=== PATIENT | male | born 2000 | race Caucasian/White ===

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

== ENCOUNTER 2022-05-05 17:21 | Emergency (ER) | payer OTHER ==
[~2022-05-05] VITALS: Ht 170.2 cm; Wt 86.2 kg
[~2022-05-05 17:21] MED LIST changes: +RISP3TAB3 PO; -RISPERDAL3 M1 PO
[2022-05-05 17:25] VITALS: BP 166/96
--- NOTE | 2022-05-05 17:25 | NUR ---
BIBA BED 7
[2022-05-05] MEDS ORDERED: HALOPERIDOL IM 5 MG/ML VIAL IM ONE (17:35)
[2022-05-05] MEDS ORDERED: LORazepam 2 MG/ML VIAL IM ONE (17:35)
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
--- NOTE | 2022-05-05 17:55 | NUR ---
pt in view and at rest w/ eyes closed. on monitor worker. bed at lowest position, bed rails upx2
[2022-05-05 18:12] LABS: BASOPHILS % (AUTO) 0.3 % (0.0-2.0); EOSINOPHILS # (AUTO) 0.1 K/uL (0-0.4); EOSINOPHILS % (AUTO) 1.7 % (0.0-4.0); HEMOGLOBIN 13.7 g/dL (12.0-18.0); LYMPHOCYTES # (AUTO) 1.6 K/uL (2.0-11.5); LYMPHOCYTES % (AUTO) 23.9 % (20.5-51.1); MEAN CORPUSCULAR HEMOGLOBIN 28 pg (27-31); MEAN CORPUSCULAR HGB CONC 33 g/dL (33-37); MEAN CORPUSCULAR VOLUME 82.9 fL (80-94); MONOCYTES # (AUTO) 0.5 K/uL (0.8-1.0); MONOCYTES % (AUTO) 6.9 % (1.7-9.3); NEUTROPHILS # (AUTO) 4.5 K/uL (1.8-7.7); NEUTROPHILS % (AUTO) 67.2 % (42.2-75.2); PLATELET COUNT (AUTO) 320 K/uL (140-450); RED BLOOD CELL COUNT(AUTO) 4.94 MIL/uL (4.20-6.10); WHITE BLOOD COUNT (AUTO) 6.8 K/uL (4.8-10.8)
--- NOTE | 2022-05-05 18:29 | NUR ---
XRAY AT BEDSIDE
--- NOTE | 2022-05-05 18:32 | NUR ---
PT TAKEN TO CT VIA [facility]
[2022-05-05 18:43] LABS: APPEARANCE,URINE CLEAR (CLEAR); BILIRUBIN,URINE 1+ (NEGATIVE); BLOOD, URINE NEGATIVE (NEGATIVE); COLOR,URINE YELLOW (YELLOW); LEUKOCYTE ESTERASE ,URINE NEGATIVE (NEGATIVE); NITRITE, URINE NEGATIVE (NEGATIVE); PH,URINE 6.5 (5.0-9.0); UGLUCOSE NEGATIVE (NEGATIVE)
--- NOTE | 2022-05-05 18:44 | NUR ---
PT BROUGHT BACK VIA [facility]
[2022-05-05 19:10] LABS: OPIATE, URINE POSITIVE ng/mL (NEG <=2000)
[2022-05-05 19:11] LABS: CANNABINOID, URINE POSITIVE ng/mL (NEG <=50); PHENCYCLIDINE SCREEN,URINE NEGATIVE ng/mL (NEG <=25)
[2022-05-05 19:12] LABS: BARBITURATE, URINE NEGATIVE ng/ml (NEG <=200); BENZODIAZEPINE, URINE NEGATIVE ng/mL (NEG <=200); COCAINE, URINE NEGATIVE ng/mL (NEG <=300)
--- NOTE | 2022-05-05 19:18 | NUR ---
REPORT GIVEN TO MARIO SEN. TRANSFER OF CARE AT THIS TIME
[2022-05-05 19:21] LABS: ANION GAP 16.7 (8-16); ASPARTATE AMINOTRANSFERASE 59 U/L (15-37); CARBON DIOXIDE 20.4 mmol/L (21-32); CHLORIDE 108 mmol/L (98-107); CREATININE 0.6 mg/dL (0.6-1.3); GFR ARICAN-AMERICAN 215 mL/min (>90); GLUCOSE 88 mg/dL (74-106); POTASSIUM 3.1 mmol/L (3.5-5.1); SODIUM SERUM 142 mmol/L (136-145); TOTAL BILIRUBIN 0.5 mg/dL (0.0-1.0); UREA NITROGEN, BLOOD 9 mg/dL (7-18)
[2022-05-05 19:23] LABS: SALICYLATE < 2.8 mg/dL (2.8-20.0)
[2022-05-05 19:24] LABS: ACETAMINOPHEN < 0.5 ug/ml (10-30)
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
--- NOTE | 2022-05-05 22:00 | NUR ---
RESTING QUIETLY WITH EYES CLOSED, RESPIRATIONS REGULAR AND UNLABORED
--- NOTE | 2022-05-06 01:59 | NUR ---
FOOD PROVIDED FOR PT . MORE ALERT AND VERBAL. PT STATED HE WAS AT "HOME" WITH HIS MOM, SHE STARTED ACTING "DIFFERENT" BECAUSE OF USING DRUGS". PT THEN STATED
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
--- NOTE | 2022-05-06 06:00 | NUR ---
AWAKENED WITH ENCOURAGEMENT. IS FOLLOWING COMMANDS AND IS COOPERATIVE. PT IS PREPARING FOR DISCHARGE AFTER BREAKFAST. BREAKFAST TRAY ORDERED
--- NOTE | 2022-05-06 07:20 | NUR ---
Report recieved from MEDARDO Lofton for transfer of care.
--- NOTE | 2022-05-06 08:04 | NUR ---
Attempted to call Diana, patients mom to update patients status. Wrong number.
--- NOTE | 2022-05-06 08:09 | NUR ---
Attempted to call [phone], phone went straight to voicemail.
--- NOTE | 2022-05-06 08:12 | NUR ---
Attempted to call [phone], phone number is disconnected.
--- NOTE | 2022-05-06 08:14 | NUR ---
Called [phone] to update patients mom discharge status. Phone number went straight to voicemail.
--- NOTE | 2022-05-06 08:25 | NUR ---
Called YARITZA Williamson to do a wellness check on patients mother since we can't get a hold of mom.
--- NOTE | 2022-05-06 08:48 | NUR ---
Per YARITZA Lujan, there is no one staying at that motel room and there is no one under patients name or mothers name [email or web address] at the motel.
--- NOTE | 2022-05-06 09:18 | NUR ---
Patient is sitting up on bed, eating breakfast.
--- NOTE | 2022-05-06 09:20 | NUR ---
Attempted to call [facility] at [phone]. Phone line is unavailable.
--- NOTE | 2022-05-06 09:37 | NUR ---
Called [phone], left a voicemail to call back.
--- NOTE | 2022-05-06 10:11 | NUR ---
Attempted to call [facility] at [phone]. Phone line is unavailable.
--- NOTE | 2022-05-06 11:07 | NUR ---
Called [facility] SPANGL[employer] to do a wellness check on patients mother. Awaiting call back.
--- NOTE | 2022-05-06 11:21 | NUR ---
Per [place] PD, Diana (patients mother) will be at home and is ready for patients discharge home.
--- NOTE | 2022-05-06 12:34 | NUR ---
Patient was changed and made clean and dry.
--- NOTE | 2022-05-06 12:40 | NUR ---
Patient was offered lunch tray. Patient is sitting up eating.
--- NOTE | 2022-05-06 13:11 | NUR ---
Patient is laying in bed, respirations even and unlabored. All needs met by staff.
[2022-05-06 14:13] VITALS: BP 127/78
--- NOTE | 2022-05-06 14:13 | NUR ---
Patient discharged with v/s stable. Written and verbal after care instructions given. Patient verbalized understanding. Ambulance Transport with to home. All questions addressed prior to discharge. Advised to follow up with PMD.
--- NOTE | 2022-05-06 15:40 | NUR ---
The patient's care was reviewed and supervised by GEOFFREY PEREA RN, RN.
== END 2022-05-06 14:13 | disposition home or self-care (01) ==
LOC: MED 17:21
DX: R40.4 Transient alteration of awareness (principal); R45.1 Restlessness and agitation; R45.851 Suicidal ideations; F32.9 Major depressive disorder, single episode, unspecified; Z79.899 Other long term (current) drug therapy
CPT/HCPCS: 36415; 70450; 71045; 80053; 80305; 81003; 84484; 85025; 93005; 96372; 99291; G0480; G0482; J1630; J2060; Q0092

== ENCOUNTER 2022-05-28 03:14 | Emergency (ER) | payer OTHER ==
[~2022-05-28] VITALS: Ht 175.3 cm; Wt 81.6 kg
--- NOTE | 2022-05-28 03:18 | NUR ---
biba to bed #4
[2022-05-28 03:21] VITALS: BP 159/107
--- NOTE | 2022-05-28 03:32 | NUR ---
PT IS BIBA COMPLAINING OF SWELLING ON THE LEFT FOOT WITH SOMEHOW FEEL PAIN IN THE BACK. PT IS ALERT AND ORIENTED X4. HE HAS COLOSTOMY BAG AND HE IS PARAPLEGIC. HE IS ROOM AIR. UNABLE TO AMBULATE.
[2022-05-28] MEDS ORDERED: BACTO TP (06:08)
[2022-05-28] MEDS ORDERED: CEPH-588 PO (06:08)
[2022-05-28] MEDS ORDERED: BACITRACIN OINT 500 UNITS/GM PKT TP ONE (06:10)
--- NOTE | 2022-05-28 07:18 | NUR ---
Assumed care from Hasmukh BATRES. Pt in bed on monitor with all safety measures in place.
--- NOTE | 2022-05-28 10:51 | NUR ---
Attempted to call family for pickup as pt is ready to be discharged
--- NOTE | 2022-05-28 11:57 | NUR ---
HOME: [facility] Address: [facility] [place] [address]
--- NOTE | 2022-05-28 12:00 | NUR ---
Water and lunch given to pt per request.
--- NOTE | 2022-05-28 12:20 | NUR ---
Pt report given to Debora BATRES. Transfer of care at this time.
--- NOTE | 2022-05-28 12:50 | NUR ---
Assumed care of pt at this time
--- NOTE | 2022-05-28 13:19 | NUR ---
Pt requested paper scrubs and wipes. Provided to pt. Offered to assist pt with washing up. Pt states he can on his own and will let staff know if it is needed
--- NOTE | 2022-05-28 13:45 | NUR ---
BILLY AGUILAR, PATIENTS MOM [phone] (PER MOM, BORROWING PHONE, MAY CALL THIS NUMBER TO REACH HER)
--- NOTE | 2022-05-28 14:11 | NUR ---
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
--- NOTE | 2022-05-28 14:41 | NUR ---
[facility] transport arrived to hop picker pt. Verified pt information and correct address. Address verified as correct with pt who remains AOx4, GCS15 and able to make needs known. Pt does not have an IV. Colostomy bag is intact and emptied. Pt was given a second sandwhich as requested. Clothing is appropriate. Mother is waiting for pt at address to let him in
[2022-05-28 14:43] VITALS: BP 137/74
== END 2022-05-28 14:40 | disposition home or self-care (01) ==
LOC: MED 03:14
DX: S90.32XA Contusion of left foot, initial encounter (principal); S90.31XA Contusion of right foot, initial encounter; W18.30XA Fall on same level, unspecified, initial encounter; Y93.89 Activity, other specified; Y92.89 Other specified places as the place of occurrence of the external cause; Y99.8 Other external cause status
CPT/HCPCS: 72100; 73552; 73590; 73610; 73630; 99284; Q0092

== ENCOUNTER 2022-06-04 11:28 | Inpatient (IN) | payer OTHER ==
[~2022-06-04] VITALS: Ht 170.2 cm; Wt 84.4 kg
[~2022-06-04 11:28] MED LIST changes: +BACTO TP; +CEPH-588 PO
[2022-06-04 11:34] VITALS: BP 151/94
--- NOTE | 2022-06-04 11:50 | NUR ---
COVID and PAOLO swabs obtained, walked to lab.
--- NOTE | 2022-06-04 12:08 | NUR ---
Patient arrived without a colostomy bag, new clean colostomy bag applied.
--- NOTE | 2022-06-04 12:12 | NUR ---
Lab at bedside.
[2022-06-04 12:57] LABS: BASOPHILS # (AUTO) 0.1 K/uL (0.00-0.22); BASOPHILS % (AUTO) 0.6 % (0.0-2.0); EOSINOPHILS # (AUTO) 0.1 K/uL (0-0.4); EOSINOPHILS % (AUTO) 1.3 % (0.0-4.0); HEMATOCRIT 49.1 % (36-52); HEMOGLOBIN 16.2 g/dL (12.0-18.0); LYMPHOCYTES # (AUTO) 1.9 K/uL (2.0-11.5); LYMPHOCYTES % (AUTO) 23.2 % (20.5-51.1); MEAN CORPUSCULAR HEMOGLOBIN 28 pg (27-31); MEAN CORPUSCULAR HGB CONC 33 g/dL (33-37); MEAN CORPUSCULAR VOLUME 85.3 fL (80-94); MONOCYTES # (AUTO) 0.7 K/uL (0.8-1.0); MONOCYTES % (AUTO) 7.9 % (1.7-9.3); NEUTROPHILS # (AUTO) 5.6 K/uL (1.8-7.7); PLATELET COUNT (AUTO) 348 K/uL (140-450); RED BLOOD CELL COUNT(AUTO) 5.76 MIL/uL (4.20-6.10); RED CELL DISTRIBUTION WIDTH 17.2 % (11.6-13.7); WHITE BLOOD COUNT (AUTO) 8.3 K/uL (4.8-10.8)
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
[2022-06-04 13:14] LABS: ALBUMIN 4.5 g/dL (3.4-5.0); ANION GAP 19.6 (8-16); ASPARTATE AMINOTRANSFERASE 38 U/L (15-37); CARBON DIOXIDE 24.3 mmol/L (21-32); CHLORIDE 103 mmol/L (98-107); CREATININE 0.9 mg/dL (0.6-1.3); GFR ARICAN-AMERICAN 134 mL/min (>90); GLUCOSE 77 mg/dL (74-106); POTASSIUM 4.9 mmol/L (3.5-5.1); SODIUM SERUM 142 mmol/L (136-145); TOTAL BILIRUBIN 0.8 mg/dL (0.0-1.0); UREA NITROGEN, BLOOD 21 mg/dL (7-18)
[2022-06-04 13:15] LABS: ACETAMINOPHEN < 0.5 ug/ml (10-30); SALICYLATE < 2.8 mg/dL (2.8-20.0)
[2022-06-04 13:36] LABS: CKMB RELATIVE INDEX 3.2 (0.0-2.5); CREATINE KINASE MB 18.4 ng/mL (0-3.6)
[2022-06-04] MEDS ORDERED: BACL10TA4 PO (14:41)
[2022-06-04] MEDS ORDERED: METH-1681 PO (14:41)
[2022-06-04] MEDS ORDERED: GABA100C PO (14:41)
[2022-06-04] MEDS ORDERED: ACET-9525 PO (14:41)
--- NOTE | 2022-06-04 14:41 | NUR ---
med rec complete
[2022-06-04 14:52] LABS: BARBITURATE, URINE NEGATIVE ng/ml (NEG <=200); BENZODIAZEPINE, URINE POSITIVE ng/mL (NEG <=200); CANNABINOID, URINE POSITIVE ng/mL (NEG <=50); COCAINE, URINE NEGATIVE ng/mL (NEG <=300)
[2022-06-04 14:53] LABS: OPIATE, URINE NEGATIVE ng/mL (NEG <=2000); PHENCYCLIDINE SCREEN,URINE NEGATIVE ng/mL (NEG <=25)
--- NOTE | 2022-06-04 15:11 | NUR ---
PT MEDICALLY CLEARED BY DR LANDA
--- NOTE | 2022-06-04 17:35 | NUR ---
Patient was offered snacks and juice. Patient declined.
--- NOTE | 2022-06-04 17:58 | NUR ---
Patient was offered dinner tray. Patient is sitting up eating.
--- NOTE | 2022-06-04 18:25 | NUR ---
Dr. Calzada, psychiatrist, evaluating patient at bedside via Telepsych.
--- NOTE | 2022-06-04 19:16 | NUR ---
Report given to MCKINLEY Schneider for transfer of care.
[2022-06-04] MEDS ORDERED: LORazepam 1 MG TAB PO ONE (19:35)
--- NOTE | 2022-06-04 20:04 | NUR ---
[facility] ORDERS FOR ADMISSION.
--- NOTE | 2022-06-04 23:50 | NUR ---
ORDER FOR TRAMADOL TAKEN VIA PHONE FROM DR CASILLAS
--- NOTE | 2022-06-05 01:53 | NUR ---
PT ALSEEP RESP EVEN AND UNLABORED. HOB ELEVATED.
--- NOTE | 2022-06-05 07:25 | NUR ---
Per previous shift, packet has been faxed [facility]: [facility]
--- NOTE | 2022-06-05 07:30 | NUR ---
REPORT RECEIVED FROM MARIO SEN. ASSUMED CARE AT THIS TIME
--- NOTE | 2022-06-05 07:50 | NUR ---
Patient will be admitted to care of MD MARTINO. Admited to M/S. Will go to room 105B. Belongings list completed. Report to DUYEN SEN.
[2022-06-05 08:00] VITALS: BP 149/91
--- NOTE | 2022-06-05 08:00 | NUR ---
Patient's Plan of Care was discussed and reviewed with DUMP GROUNDS CHECKER: DUYEN
--- NOTE | 2022-06-05 08:00 | NUR ---
ADMITTED FROM ER VIA GURNEY. PT. SLEEPING BUT EASILY AROUSABLE. NON-COOPERATIVE. VERBALIZED NAME, PLACE, AND TIME. NO ADMISSION INFORMATION GATHERED DUE TO PT. NON-COOPERATIVE BEHAVIOR. KEEP COMFORTABLE ON BED. KEEP ENVIRONMENT SAFE AND FREE FROM INJURY. CLOSELY MONITORED 1:1 FOR SUICIDAL PREVENTION.
--- NOTE | 2022-06-05 08:15 | NUR ---
SERVED BREAKFAST TRAY. PT. EATING WELL. STILL NOT GIVING ADMISSION INFORMATION.
[2022-06-05 08:29] LABS: ANION GAP 13.5 (8-16); CARBON DIOXIDE 24.2 mmol/L (21-32); CREATININE 0.6 mg/dL (0.6-1.3); POTASSIUM 3.7 mmol/L (3.5-5.1)
[2022-06-05 08:40] LABS: BASOPHILS # (AUTO) 0.1 K/uL (0.00-0.22); BASOPHILS % (AUTO) 0.9 % (0.0-2.0); EOSINOPHILS # (AUTO) 0.2 K/uL (0-0.4); EOSINOPHILS % (AUTO) 3.6 % (0.0-4.0); HEMATOCRIT 44.8 % (36-52); HEMOGLOBIN 14.5 g/dL (12.0-18.0); LYMPHOCYTES # (AUTO) 1.7 K/uL (2.0-11.5); MEAN CORPUSCULAR HEMOGLOBIN 28 pg (27-31); MEAN CORPUSCULAR HGB CONC 32 g/dL (33-37); MEAN CORPUSCULAR VOLUME 85.8 fL (80-94); MONOCYTES # (AUTO) 0.7 K/uL (0.8-1.0); MONOCYTES % (AUTO) 10.7 % (1.7-9.3); NEUTROPHILS % (AUTO) 59.8 % (42.2-75.2); PLATELET COUNT (AUTO) 302 K/uL (140-450); RED BLOOD CELL COUNT(AUTO) 5.22 MIL/uL (4.20-6.10); RED CELL DISTRIBUTION WIDTH 16.9 % (11.6-13.7); WHITE BLOOD COUNT (AUTO) 6.7 K/uL (4.8-10.8)
[2022-06-05] MEDS: NACL 0.9% 1,000 ML IV SCH ×2 (09:44→18:38)
--- NOTE | 2022-06-05 09:45 | NUR ---
IV ON RIGHT AC GAUGE #20 LEAKED, D/C AND REMOVED. INSERTED NEW IV ACCESS ON LEFT HAND WITH ASSISTANCE FROM SUNNY GAR. TOLERATED WELL. STARTED INFUSING NS AT 100 ML/HR PER MD ORDER.
[2022-06-05] MEDS: ENOXAPARIN 40 MG/0.4 ML SYR SUBQ SCH (09:46)
--- NOTE | 2022-06-05 11:10 | NUR ---
STILL NON-COOPERATIVE. DIDN'T WANT TO GIVE ADMISSION INFORMATION. CONTINUE TO SLEEP. WILL MONITOR.
--- NOTE | 2022-06-05 11:12 | NUR ---
CALLED PT. MOTHER BILLY AGUILAR AT REGARDING PT. ADMISSION INFORMATION.
--- NOTE | 2022-06-05 12:20 | NUR ---
CIELO PLANNING REFERRAL PACKET SENT TO [facility] FOR INPATIENT PSYCH PLACEMENT. REFERRAL PACKET ALSO SENT TO [facility], [facility], [facility], [facility], [facility], AND [facility] Addendum: 06/05/22 at 1357 by Osmar Rausch SS FIELDED CALL FROM [facility] WHO REPORTS THEY ARE UNABLE TO ACCEPT PT THEY ARE UNABLE TO ACCOMMODATE BRAIN INJURY OR PROVIDE LEVEL OF CARE NEEDED DUE TO PARAPLEGIA. Addendum: 06/05/22 at 1401 by Osmar Rausch SS OUTREACHED TO [facility], TO FOLLOW UP ON PLACEMENT STATUS. SPOKE WITH ANA MARÍA KLINE REPORTS REFERRAL PACKET WAS SENT TO [facility], [facility], [facility], [facility], [facility], [facility]A REPORTS NO ACCEPTING FACILITIES OF YET Addendum: 06/06/22 at 1447 by Osmar Rausch OUTREACHED TO [facility] , TO FOLLOW UP ON PLACEMENT STATUS. SPOKE WITH ART WHO REPORTS NO UPDATES ON PLACEMENT. PT IS A COMPLEX PLACEMENT DUE TO PTS COMPLEX MEDICAL NEEDS. Addendum: 06/11/22 at 1435 by Osmar RIVERS SPOKE WITH PT AND PTS MOTHER AND DISCUSSED EXPIRATION OF HOLD. BOTH PT AND PTS MOTHER AWARE, DISCUSSED WITH PT AND MOTHER ACCEPTANCE TO A VOLUNTARY PSYCH FACILITY. PT REPORTS HE WANTS TO RETURN HOME, MOTHER IN AGREEMENT. TRANSPORT REQUEST FORM FAXED TO [facility] FOR 3:30 P/UP. ENDORSED TO PT NURSE.
--- NOTE | 2022-06-05 13:15 | NUR ---
EATING LUNCH AT THIS TIME. REMAINED CALM, AND QUIET. CONTINUE MONITORING.
--- NOTE | 2022-06-05 13:32 | NUR ---
WENT BACK TO SLEEP AFTER EATING LUNCH. KEEP FREE FROM INJURY.
--- NOTE | 2022-06-05 14:20 | NUR ---
REQUESTED FOR ICE CHIPS AND CRANBERRY JUICE. NEEDS MET. BACK TO SLEEP AGAIN.
--- NOTE | 2022-06-05 14:27 | NUR ---
PATIENT HAS BEEN SCREENED AND CATEGORIZED LOW NUTRITION RISK. PATIENT WILL BE SEEN WITHIN 7 DAYS OF ADMISSION. 06/11/22 REVIEWED BY JAYNE ANDREW RD
--- NOTE | 2022-06-05 15:18 | NUR ---
PT. WOKE UP AND REMOVED GOWN. REFUSED TO WEAR IT BACK AGAIN. BACK TO SLEEP WITH GOWN COVER HIS UPPER BODY.
[2022-06-05 16:00] VITALS: BP 147/85
--- NOTE | 2022-06-05 17:15 | NUR ---
PM CARE PROVIDED. CHANGED DIAPER. CALM AND COOPERATIVE AT THIS TIME. ABLE TO CONVINCED TO WEAR GOWN. KEEP COMFORTABLE ON BED. CONTINUE MONITORING.
--- NOTE | 2022-06-05 19:07 | NUR ---
BEDSIDE REPORT GIVEN TO ZACH BAIRD. PT. SLEEPING WELL. IVF INFUSING WELL. IN STABLE CONDITION.
[2022-06-05 20:00] VITALS: BP 128/72
--- NOTE | 2022-06-05 20:00 | NUR ---
RECEIVED REPORT FROM DAY SHIFT NURSE FOR CONTINUITY OF CARE. PATIENT ASLEEP,EASILY AROUSABLE WHEN CALLED BY NAME .ON ROOM AIR,. RESPIRATION EVEN AND UNLABORED.NO S/SX OF DISTRESS. IV ON L HAND G22 RUNNING FLUIDS PER MD ORDER., PATENT AND INTACT.NOTED WOUNDS ON BILATERAL TOES. OPEN TO AIR.NO DRAINAGE NOTED.DENIES PAIN AT THIS MOMENT.ALL PRECAUTIONS IN PLACE .CALL LIGHT WITHIN REACH. WILL CONTINUE TO MONITOR.
[2022-06-05] MEDS: LORazepam 2 MG/ML VIAL IVP PRN (23:33)
--- NOTE | 2022-06-06 | NUR ---
PROVIDED SANDWICH AND JUICE PER PT REQUEST. NO /SX OF DISTRESS. SITTER BY THE DOOR. WILL CONTINUE TO MONITOR.
[2022-06-06] MEDS: NACL 0.9% 1,000 ML IV SCH ×3 (03:29→20:49)
--- NOTE | 2022-06-06 04:24 | NUR ---
PT ASLEEP. NO S/SX OF DISTRESS NOTED. BREATHING EVEN AND UNLABORED. CALL LIGHT WITHIN REACH.WILL CONTINUE TO MONITOR.
[2022-06-06 06:00] VITALS: BP 137/81
--- NOTE | 2022-06-06 07:40 | NUR ---
[facility] FOR CONTINUITY OF CARE. PT IN STABLE CONDITION. 5150 HOLD ACTIVE WITH SITTER AT THE BEDSIDE.
[2022-06-06] MEDS: ENOXAPARIN 40 MG/0.4 ML SYR SUBQ SCH (08:26)
--- NOTE | 2022-06-06 12:16 | NUR ---
RECEIVED IN BED ASSESSMENT COMPLETED AT THIS TIME PLAN OF CARE REVIEWED SITTER AT BEDSIDE FOR 5150 HOLD WILL CONTINUE TO MONITOR AND ASSESS
[2022-06-06] MEDS: traMADol 50 MG TAB PO PRN (12:57)
[2022-06-06] MEDS: LORazepam 2 MG/ML VIAL IVP PRN (13:05)
--- NOTE | 2022-06-06 13:05 | NUR ---
PT NOTED TO BE SLEEPY WITH INTERMITTENTLY AROUSING WITH AGITATION AND PULLING AT LINE ATIVAN GIVEN ORDERED PT ENDO
--- NOTE | 2022-06-06 13:08 | NUR ---
PT ENDORSES PAIN MEDICATED WITH ULTRAM ORDERED WILL CONTINUE TO MONITOR AND ASSESS
[2022-06-06 14:24] VITALS: BP 152/87
--- NOTE | 2022-06-06 14:44 | NUR ---
DC PLANNING ASSESSMENT COMPLETE SEE ASSESSMENT FOR DETAILS PT IS CURRENTLY ON A 5150 HOLD. TENTATIVE DC PLAN IS TO IDENTIFY INPATIENT PSYCH PLACEMENT. Addendum: 06/06/22 at 1445 by Osmar Rausch SS Amended: Links added. Addendum: 06/10/22 at 1057 by Osmar Rausch SS UPDATED REFERRAL PACKET SENT TO [facility], [facility], [facility], [facility], [facility], [facility], Addendum: 06/10/22 at 1123 by Osmar Rausch SS FIELDED CALL FROM [facility] INQUIRING ON PLACEMENT FOR PT. LILLY REPORTS CLINICAL TEAM IS REVIEWING PACKET AND WILL BE IN TOUCH ONCE REVIEWED. Addendum: 06/11/22 at 1606 by Osmar Rausch SS OUTREACHED TO PT MOTHERIBLLY TO NOTIFY HER OF P/UP TIME CHANGE. BILLY, PT MOTHER MADE AWARE PT WILL BE PICKED UP FROM [facility] AT 6PM
[2022-06-06 20:00] VITALS: BP 139/96
--- NOTE | 2022-06-06 20:11 | NUR ---
RECEIVED REPORT FROM GAL BATRES (REGISTRY), PATIENT WAS IN STABLE CONDITION DURING REPORT. PATIENT WAS NOTED IN BED SLEEPING WITH SITTER AT BEDSIDE. ALERT AND ORIENTED X 3. PATIENT AWOKE WHEN NAME WAS CALLED. PATIENT DENIED ANY PAIN AT THIS TIME. PATIENT IS ON ROOM AIR. PATIENT DENIES AND SUICIDAL IDEALIZATIONS AT THIS TIME. NO NOTED RESPIRATORY DISTRESS. CHEST IS RISING AND FALLING WITHOUT INCIDENT. CALL LIGHT IN REACH. [email or web address]
--- NOTE | 2022-06-06 23:55 | NUR ---
PATIENT WAS NOTED TEARFUL. NURSING INQUIRED TO WHY HE WAS CRYING, HE SHOOK HIS HEAD PULLED THE COVERS OVER HIS HEAD AND WENT BACK TO SLEEP. PATIENT CONTINUES ON 1:1 SITTER TO PREVENT SELF HARM. [email or web address]
--- NOTE | 2022-06-07 01:31 | NUR ---
PATIENT IN BED SLEEPING WITHOUT ANY ATTEMPTS OF SUICIDE OR SUICIDAL THOUGHTS. NO S/S OF PAIN/DISCOMFORT. NO S/S OF RESPIRATORY DISTRESS. [email or web address]
[2022-06-07] MEDS: LORazepam 2 MG/ML VIAL IVP PRN ×2 (02:32→09:54)
[2022-06-07 04:00] VITALS: BP 141/95
--- NOTE | 2022-06-07 05:00 | NUR ---
IV FLUIDS WERE CHANGED OUT FOR NEW. PATIENT WAS WASHED D/T CONDOM CATH CAME OFF. [id number] REMAINED CLEAN AND DRY. [email or web address]
--- NOTE | 2022-06-07 07:20 | NUR ---
RECEIVED REPORT FROM NIGHT NURSE ELEAZAR FOR CONTINUITY OF CARE. INITIAL ASSESSMENT. IVF INFUSING WELL. CONDOM CATH IN PLACE. PT PULLED OUT CATHETER LAST NIGHT. NO C/O PAIN OR DISCOMFORT. REMAINS STABLE. CALL LIGHT KEPT WITHIN REACH. WILL CONTINUE TO MONITOR.
--- NOTE | 2022-06-07 07:21 | NUR ---
ENDORSED PATIENT TO SABRINA SEN, PATIENT WAS STABLE DURING SHIFT REPORT. [email or web address]
[2022-06-07 08:00] VITALS: BP 148/94
--- NOTE | 2022-06-07 08:00 | NUR ---
Patient's Plan of Care was discussed and reviewed with BUILDING SERVICES TECHNICIAN:
[2022-06-07] MEDS: ENOXAPARIN 40 MG/0.4 ML SYR SUBQ SCH (08:59)
--- NOTE | 2022-06-07 08:59 | NUR ---
SCHEDULED MEDICATIONS GIVEN. TOLERATING WELL.
[2022-06-07] MEDS: NACL 0.9% 1,000 ML IV SCH ×2 (09:29→19:29)
--- NOTE | 2022-06-07 09:54 | NUR ---
NOTED PT CRYING, AGITATED, NAKED. PRN ATIVAN IVP FOR ANXIETY WAS GIVEN BY MEDARDO HOGAN. WILL CONTINUE TO MONITOR.
--- NOTE | 2022-06-07 10:14 | NUR ---
INFORMED BY RESOURCE NURSE THAT PT TELE PSYCH EVALUATION STILL PENDING. NEEDS TO BE SEEN BY PSYCHIATRIST PRIOR CALLING [facility] SPANGLER. CURRENTLY [address] SPARKS NOTIFIED AWAITING FOR RESPONSE.
--- NOTE | 2022-06-07 11:15 | NUR ---
WOUND CARE NOTE: UPON ARRIVAL TO PTS ROOM, PT IS ON POSITION, PT WITH NO CLOTHES ON. TALK AND EXPLAIN TO PT WITH PT'S PERMISSIONS, GOWN AND BLANKET COVER TO PT'S BODY. PT. ALLOWS WOUND CARE NURSE ONLY CHECK SKIN CONDITION TO ALL EXTREMITIES AND PARTIAL COLOSTOMY BAG IS OBSERVED. PT. REFUSED TO TURN TO OTHER SIDE OF BODY AND REFUSES PRIVATE AREA TO BE CHECKED. ATTEMPTED X3. LEFT HALLUX, 3RD AND 4TH DIGIT TOES.WITH STABLE BROWN/BLACK SLIGHTLY SWELLING, ABHIJEET-WOUNDS SKIN INTACT, INTERSPACES SKIN INTACT, PAIN 0/10. CAPILLARY REFILLED >2 SEC X10 TOES. LLQ ABDOMEN COLOSTOMY BAG IN PLACE NO LEAKAGE OBSERVED. POC DISCUSSED WITH PRIMARY RN REBECCA. RECOMMENDATIONS: -CONTINUE ROUTINE COLOSTOMY CARE -APPLY HYGRAGUARD TO TRUNK OF BODY/SCROTUM AND ALL EXTREMITIES BID AND ANNE-MARIE -PAINT LEFT HALLUX, 3RD AND 4TH DIGIT TOES WITH BETADINE SWAP STICKS BID AND CALIBRATION TESTER Addendum: 06/07/22 at 1122 by Mimi Adams RN (Grace) LEFT HALLUX SCAB 1.8X1.5CM. 3RD TOE 0.8X0.8CM AND 4TH TOE 0.5X0.5CM.
--- NOTE | 2022-06-07 11:28 | NUR ---
RECEIVED CALLED FROM DR. SPARKS PSYCHIATRIST FOR TELE PSYCH EVALUATION. PER , HE WILL EVALUATE HIM LATER TODAY.
[2022-06-07] MEDS: GAUZE TP SCH (13:24)
[2022-06-07] MEDS: HYDRAGUARD CREAM TP SCH (13:26)
--- NOTE | 2022-06-07 14:55 | NUR ---
PT NOTED CRYING, RESTLESS, PULLING OUT COLOSTOMY BAG. DR. KEATING NOTIFIED WITH NEW ORDER. ATIVAN 1 MG IVP Q4H AND SEROQUEL 25 MG BID. D/C ATIVAN 1 MG IVP Q6H. NOTED AND CARRIED OUT.
[2022-06-07] MEDS ORDERED: LORazepam 2 MG/ML VIAL IVP PRN (15:00)
--- NOTE | 2022-06-07 15:11 | NUR ---
PRN ATIVAN 1 MG Q4H WAS GIVEN BY EDISON BATRES. TOLERATING WELL.
--- NOTE | 2022-06-07 16:00 | NUR ---
COLOSTOMY BAG CHANGE. PT ASLEEP AT THIS TIME.
--- NOTE | 2022-06-07 19:40 | NUR ---
MADE FOLLOW UP CALLED WITH DR. SPARKS FOR TELE PSYCH EVALUATION. DR SPARKS CALLED RIGHT AWAY. ONGOING CONSULT.
--- NOTE | 2022-06-07 19:45 | NUR ---
BEDSIDE REPORT GIVEN TO NIGHT NURSE DAIN FOR CONTINUITY OF CARE. ONGOING TELE PSYCH CONSULT WITH DR. SPARKS. REMAINS STABLE.
--- NOTE | 2022-06-07 19:46 | NUR ---
RECEIVED REPORT FROM DAY SHIFT NURSE REBECCA FOR CONTINUITY OF CARE. PT AWAKE IN BED. RESPIRATIONS EVEN AND UNLABORED ON RA. DENIES PAIN. NO DISTRESS NOTED. COLOSTOMY BAG PRESENT, INTACT. ONGOING TELE-PSYCHE CONSULT WITH DR. SPARKS.
[2022-06-07 20:00] VITALS: BP 144/85
--- NOTE | 2022-06-07 20:30 | NUR ---
OSWALDO SPANGLER AT BEDSIDE. SPOKE TO PT. 5150 HOLD EXTENDED.
[2022-06-07] MEDS: QUEtiapine FUMARATE 25 MG TAB PO SCH (21:47)
--- NOTE | 2022-06-07 21:47 | NUR ---
ADMINISTERED DUE MED. PT COMPLIANT, TOLERATED WELL. CHANGED BEDSHEETS AND DIAPER. PT COMFORTABLY LYING IN BED.
--- NOTE | 2022-06-07 21:56 | NUR ---
Patient's Plan of Care was discussed and reviewed with CORN DETASSELER: LORI.
[2022-06-08] MEDS: HYDRAGUARD CREAM TP SCH ×2 (01:00→13:23)
[2022-06-08] MEDS: GAUZE TP SCH ×2 (01:00→13:23)
--- NOTE | 2022-06-08 01:52 | NUR ---
CHANGED COLOSTOMY BAG, DIAPER, BED SHEETS, GOWN AND BLANKET. PT REMAINED CLEAN AND DRY.
--- NOTE | 2022-06-08 03:02 | NUR ---
PT REQUESTED FOR SNACKS. PT ATE THEN GO BACK TO SLEEP. NO SIGNS OF AGITATION NOTED. QUIET AND CALM.
[2022-06-08 04:00] VITALS: BP 134/83
--- NOTE | 2022-06-08 06:39 | NUR ---
DID MORNING CARE. CHANGED COLOSTOMY BAG. PT CALM, COMPLIANT, FOLLOWS INSTRUCTIONS. NO EPISODES OF BEING AGGRESSIVE OR AGITATED ALL THROUGHOUT THE NIGHT. HE WAS CRYING AT TIMES BUT DIDN'T RESPOND WHEN ASKED. 1:1 SITTER MAINTAINED. SAFETY PRECAUTIONS IN PLACE.
[2022-06-08 08:00] VITALS: BP 123/75
[2022-06-08] MEDS: ENOXAPARIN 40 MG/0.4 ML SYR SUBQ SCH (08:13)
[2022-06-08] MEDS: QUEtiapine FUMARATE 25 MG TAB PO SCH ×2 (08:13→20:07)
--- NOTE | 2022-06-08 11:39 | NUR ---
PATIENT PULLED OUT IV STATING THAT HE DOES NOT WANT IV IN ANYMORE, EXPLAINED TO PATIENT IMPORTANCE OF IV ACCESS WHILE IN HOSPITAL FOR TREATMENT, PT REFUSING NEW IV PLACEMENT AND STATES THAT HE DOES NOT WANT AN IV. CATH NOTED TO BE INTACT, NO BLEEDING NOTED.
[2022-06-08] MEDS: NACL 0.9% 1,000 ML IV SCH (15:29)
[2022-06-08] MEDS ORDERED: LORazepam 2 MG/ML VIAL IM/IVP PRN (17:15)
--- NOTE | 2022-06-08 19:15 | NUR ---
PATIENT RESTING IN BED, RESPIRATIONS EVEN AND UL ON RA, SITTER AT BEDSIDE. REPORT GIVEN TO PM NURSE FOR CONTINUITY OF CARE.
--- NOTE | 2022-06-08 19:35 | NUR ---
RECEIVED REPORT FROM DAY SHIFT NURSE EDMUNDO FOR CONTINUITY OF CARE. PT AWAKE SITTING IN BED. 1:[address] LAUGHING, SMILING AND INTERACTING WITH THE SITTER. RESPIRATIONS EVEN AND UNLABORED ON RA. COLOSTOMY BAG IN PLACE, INTACT. SAFETY PRECAUTIONS IN PLACE.
--- NOTE | 2022-06-08 19:36 | NUR ---
RECEIVED PT WITH NO IV LINE IN PLACE. PER AM NURSE AWARE.
[2022-06-08 20:00] VITALS: BP 128/92
--- NOTE | 2022-06-08 20:00 | NUR ---
Patient's Plan of Care was discussed and reviewed with AIRCRAFT DETAIL DRAFTSPERSON: DAIN SAWYER
--- NOTE | 2022-06-08 20:08 | NUR ---
V/S TAKEN, WITHIN NORMAL LIMITS. ADMINISTERED DUE MED. PT TOLERATED WELL. ATTEMPTED TO INSERT A NEW IV LINE BUT PT REFUSED. RISKS AND BENEFITS FOR HAVING IV LINE WHILE IN THE HOSPITAL WERE EXPLAINED BUT STILL REFUSED. PT WITH EXTREME HAPPY MOOD, INTERACTING APPROPRIATELY, DENIES THOUGHTS OF HURTING HIMSELF OR OTHERS, DENIES HEARING VOICES.
--- NOTE | 2022-06-09 00:02 | NUR ---
PT REQUESTED FOR SNACKS. SANDWICH AND JUICE GIVEN. PT STAYED IN BED.
[2022-06-09] MEDS: HYDRAGUARD CREAM TP SCH ×2 (01:00→13:30)
[2022-06-09] MEDS: GAUZE TP SCH ×2 (01:00→13:30)
[2022-06-09] MEDS: NACL 0.9% 1,000 ML IV SCH ×3 (01:29→21:29)
[2022-06-09 04:00] VITALS: BP 122/80
[2022-06-09] MEDS: traMADol 50 MG TAB PO PRN ×2 (05:51→15:07)
--- NOTE | 2022-06-09 05:51 | NUR ---
CHANGED COLOSTOMY BAG. DID MORNING CARE. PT WAS CRYING COMPLAINING FOR CRAMPS AND PAIN ON HIS BACK, PRN MED ADMINISTERED. PT REMAINED IN BED COMFORTABLY RESTING.
--- NOTE | 2022-06-09 07:10 | NUR ---
GAVE BEDSIDE REPORT TO MCKINLEY BENITES FOR CONTINUITY OF CARE. PT REPORTED DECREASED PAIN 07/29. 1:1 SITTER MAINTAINED THROUGHOUT SHIFT. NO DISTRESS NOTED. PT WITH EPISODES OF CRYING. PT WAS CALM, NO UNUSUAL EVENTS NOTED. PT IN STABLE CONDITION.
--- NOTE | 2022-06-09 07:11 | NUR ---
RECEIVED PT FROM ENGINE HEAD REPAIRER NURSE FOR CONTINUITY OF CARE. PT IN BED SLEEP. VISIBLE RISE/FALL OF CHEST, RESPIRATIONS EVEN AND UNLABORED ON RA. NO IV ACCESS, SKIN WARM AND DRY TO TOUCH. NO DISTRESS NOTED. SITTER IN ROOM.
--- NOTE | 2022-06-09 08:00 | NUR ---
Patient's Plan of Care was discussed and reviewed with EXTENSION WORK INSTRUCTOR:
[2022-06-09] MEDS: ENOXAPARIN 40 MG/0.4 ML SYR SUBQ SCH (09:00)
[2022-06-09] MEDS: QUEtiapine FUMARATE 25 MG TAB PO SCH ×2 (09:12→21:46)
--- NOTE | 2022-06-09 11:38 | NUR ---
PT IN BED CRYING, COMPLAINS OF PAIN. NURSE ASKED PT LOCATION OF PAIN PT SCREAMING " LEAVE ME ALONE, YOU GUYS DONT CARE ABOUT ME" NURSE BROUGHT MEDICATION TO PT, PT REFUSED STATES " I DONT WANT TO TAKE ANYTHING, YOU GUYS NEVER BRING ME ANYTHING UNTIL ITS TOO LATE" INFORMED PT THAT HIS MEDICATION IS Q6 AND IS NOT PAST DUE, INFORMED DR KEATING, NO NEW ORDERS.
--- NOTE | 2022-06-09 13:00 | NUR ---
PT IN BED WITH EYES CLOSED AND WHIMPERING. NURSE BROUGHT CONDOM CATH PER PT REQUEST, PT STATES HE NO LONGER WANTS IT, OFFERED PAIN MEDICATION PT REFUSED. NURSE PERFORMED WOUND CARE.
[2022-06-09 16:00] VITALS: BP 138/92
--- NOTE | 2022-06-09 17:13 | NUR ---
PROVIDED COLOSTOMY CARE AND CHANGE. PT SLEEPING.
--- NOTE | 2022-06-09 18:00 | NUR ---
PT C/O TINGLING FRAGMENT SENSATION ON LEGS. ASSISTED PT TO PERFORM PASSIVE RANGE OF MOTION ON LEGS, THEN PROPED THEM UP ON PILLOWS.
--- NOTE | 2022-06-09 19:23 | NUR ---
ENDORSED PT TO SUBSTANCE ABUSE NURSE NURSE FOR CONTINUITY OF CARE. PT IN STABLE CONDITION.
--- NOTE | 2022-06-09 19:24 | NUR ---
RECEIVED REPORT FROM DAY SHIFT NURSE DELMIS FOR CONTINUITY OF CARE. PT SLEEPING, EASILY AROUSABLE BY VERBAL STIMULI. RESPIRATIONS EVEN AND UNLABORED ON RA. COLOSTOMY BAG IN PLACE, INTACT. NO IV SITE, MD AWARE. 1:[address] POC DISCUSSED WITH MEDARDO COLEY.
[2022-06-09 20:00] VITALS: BP 119/65
--- NOTE | 2022-06-09 20:00 | NUR ---
Patient's Plan of Care was discussed and reviewed with FLAG FOOTBALL COACH: DAIN SAWYER
--- NOTE | 2022-06-09 21:46 | NUR ---
ADMINISTERED DUE MEDS. PT WAS COMPLAINT AND TOOK HIS MED. PT STILL REFUSING TO HAVE IV LINE INSERTED. RISKS AND BENEFITS EXPLAINED BUT STILL REFUSED. POC DISCUSSED WITH PT. PT VERBALIZED UNDERSTANDING. PT DENIES THOUGHTS OF HURTING HIMSELF OR OTHERS, DENIES VISUAL OR AUDITORY HALLUCINATIONS. PT WAS CALM WITH NO SIGNS OF AGITATION. SAFETY AND 1:[address]
[2022-06-10] MEDS: HYDRAGUARD CREAM TP SCH ×2 (01:04→13:44)
[2022-06-10] MEDS: GAUZE TP SCH ×2 (01:04→13:45)
--- NOTE | 2022-06-10 05:39 | NUR ---
DID MORNING CARE. CHANGED COLOSTOMY BAG. PT COMPLIANT AND HELPED WITH THE COLOSTOMY CARE. NO AGITATION. NO UNUSUAL BEHAVIOR. NO DISTRESS NOTED.
--- NOTE | 2022-06-10 07:07 | NUR ---
GAVE BEDSIDE REPORT TO MCKINLEY BENITES FOR CONTINUITY OF CARE. ALL NEEDS MET THROUGHOUT SHIFT. PT IN STABLE CONDITION.
[2022-06-10] MEDS: NACL 0.9% 1,000 ML IV SCH ×2 (07:29→17:29)
[2022-06-10 08:00] VITALS: BP 137/90
[2022-06-10] MEDS: traMADol 50 MG TAB PO PRN ×3 (08:35→22:21)
[2022-06-10] MEDS: QUEtiapine FUMARATE 25 MG TAB PO SCH ×2 (08:35→22:22)
[2022-06-10] MEDS: ENOXAPARIN 40 MG/0.4 ML SYR SUBQ SCH (08:38)
--- NOTE | 2022-06-10 08:40 | NUR ---
ADMINISTERED SCHEDULED MEDS. PT TOLERATED WELL.
--- NOTE | 2022-06-10 13:29 | NUR ---
DISCHARGE PLANNING: RECEIVED A CALL FROM [facility] [phone], STATING THAT THEY RECEIVED THER REFERRAL. HOWEVER, THEY ARE ONLY ACCEPTING VOLUNTARY PATIENTS AND PATIENT IS ON HOLD. IF PATIENT'S HOLD EXPIRES AND PATIENT IS WILLING TO BE ADMITTED IN THERE FACILITY THEY ARE ABLE TO ACCEPT. Addendum: 06/11/22 at 1435 by Sara Webb RN DC PLANNING: GRZEGORZ SISSY SPOKE WITH PT'S MOTHER BILLY AND AGREED TO TAKE HIM HOME. CM CONTACT [facility] AND PT WAS WITH [facility]. CM CALLED [facility] [phone] SPOKE WITH THE ADMIN AND STATED THEY DISCHARGE HIM MAY 17 AND NOT WILLING TO TAKE HIM BACK BECAUSE NO NURSE WORKING AROUND THE AREA. CM FAXED TO [facility] , [facility]. CM TO FOLLOW Addendum: 06/11/22 at 1635 by Sara Webb RN DC PLANNING: [facility] IS ACCEPTING PATIENT. [facility] PROVIDE THE AUTH # [id number] AND [facility] PROVIDE THE COLOSTOMY CARE AND INCONTINENCE CARE SUPPLIES. CM TO FOLLOW
[2022-06-10 16:00] VITALS: BP 137/89
--- NOTE | 2022-06-10 19:39 | NUR ---
ENDORSED PT CARE TO OFFSET LITHOGRAPHIC PRESS OPERATOR NURSE ELDA. INFORMED HIM OF 5150 HOLD EXPIRING TONIGHT May AT 2109. CALLED [facility] , WAS INFORMED THEY WOULD SEND OFFICER SOON THEY HAD ONE AVAILABLE.. INFORMED ELDA. ALL NEEDS MET THROUGHOUT SHIFT. PT IN STABLE CONDITION.
--- NOTE | 2022-06-10 21:10 | NUR ---
CALLED [facility] SPANGLER [ ] FOR POSSIBLE RENEWAL OF 5150 DTS HOLD EXPIRING AT 2109 TONIGHT. CALL DESK INFORMED RN THAT OFFICER WILL BE OUT SHORTLY.
--- NOTE | 2022-06-10 23:49 | NUR ---
[facility]WAL[facility] PD OFFICER ARRIVED AND ASSESSED PT [id number] AND FOUND NO CAUSE FOR EXTENDING 5150 HOLD. PT COMPLIANT W MEDICATIONS AND FOLLOWS DIRECTIONS. NSG COOK PIE ASKED FOR [id number] (MONITOR) W MD AND PT. SYSTEMS SPECIALIST WAS CALLED AND NOTIFIED - ROUTINE STATUS.
--- NOTE | 2022-06-11 00:16 | NUR ---
TELE-PSYCH ([phone]) WAS CALLED FOR CONSULTATION ON THIS PATIENT. TELE-PSYCH WILL CALL BACK. ALYSSIA VILLELA TO ASSESS PT FOR RENEWAL / DECLINE OF 5150 HOLD.
--- NOTE | 2022-06-11 01:00 | NUR ---
DR Hermelinda VILLELA CONCLUDED AT END OF INTERVIEW THAT PT DOES NOT MEET CRITERIA FOR 5150 HOLD.
[2022-06-11] MEDS: NACL 0.9% 1,000 ML IV SCH ×2 (01:39→13:29)
--- NOTE | 2022-06-11 02:57 | NUR ---
Pt currently in tears, crying. Pt crying that he is no longer able to walk. Pt did contract for safety and agreed to notify nurse if he has any thoughts about hurting himself.
[2022-06-11] MEDS: traMADol 50 MG TAB PO PRN ×3 (04:25→16:38)
[2022-06-11] MEDS: GAUZE TP SCH ×2 (04:27→13:27)
[2022-06-11] MEDS: HYDRAGUARD CREAM TP SCH ×2 (04:28→13:26)
--- NOTE | 2022-06-11 07:25 | NUR ---
RECEIVED BEDSIDE REPORT FROM TELEGRAPHIC TYPEWRITER INSTALLER MEDARDO SCHROEDER FOR CONTINUITY OF PATIENT CARE. PATIENT IN BED AOX4, RESPIRATIONS EVEN AND UNLABORED, PT SITTING NAKED ON MATTRESS NO SHEETS ON MATTRESS, SKIN COOL TO TOUCH. COLOSTOMY BAG FULL OF STOOL AND UNCLIPPED LYING ON SIDE OF BED, STOMA OPEN TO AIR NOTED WITH MODERATE AMOUNT OF STOOL SURROUNDING AND DIRECTLY ON STOMA. PT COMPLAINS HE WAS NOT CLEANED ALL NIGHT. NIGHT RN STATES HE WAS UNABLE TO ACCOMPLISH PT CARE SUCH COLOSTOMY CARE. MEDARDO SCHROEDER STATES PT IS NO LONGER 51/50 [facility] SPANGLER FOUND NO CAUSE TO RENEW, PER ELDA DID NOT GET A CHANCE TO NOTIFY DR OF STATUS CHANGE.
--- NOTE | 2022-06-11 07:45 | NUR ---
PROVIDED COLOSTOMY CARE, AND INFORMED DR STOLL OF PT NO LONGER 5150 HOLD.
[2022-06-11 08:00] VITALS: BP 134/90
--- NOTE | 2022-06-11 08:00 | NUR ---
Patient's Plan of Care was discussed and reviewed with MCKINLEY: CLYDE
[2022-06-11] MEDS: QUEtiapine FUMARATE 25 MG TAB PO SCH (08:21)
[2022-06-11 10:41] LABS: BASOPHILS % (AUTO) 0.4 % (0.0-2.0); EOSINOPHILS # (AUTO) 0.1 K/uL (0-0.4); EOSINOPHILS % (AUTO) 0.9 % (0.0-4.0); HEMATOCRIT 41.5 % (36-52); HEMOGLOBIN 13.7 g/dL (12.0-18.0); LYMPHOCYTES # (AUTO) 1.7 K/uL (2.0-11.5); LYMPHOCYTES % (AUTO) 16.9 % (20.5-51.1); MEAN CORPUSCULAR HEMOGLOBIN 28 pg (27-31); MEAN CORPUSCULAR HGB CONC 33 g/dL (33-37); MEAN CORPUSCULAR VOLUME 84.8 fL (80-94); MONOCYTES # (AUTO) 0.6 K/uL (0.8-1.0); MONOCYTES % (AUTO) 6.1 % (1.7-9.3); NEUTROPHILS # (AUTO) 7.8 K/uL (1.8-7.7); NEUTROPHILS % (AUTO) 75.7 % (42.2-75.2); PLATELET COUNT (AUTO) 299 K/uL (140-450); RED BLOOD CELL COUNT(AUTO) 4.89 MIL/uL (4.20-6.10); RED CELL DISTRIBUTION WIDTH 16.4 % (11.6-13.7); WHITE BLOOD COUNT (AUTO) 10.3 K/uL (4.8-10.8)
[2022-06-11 10:54] LABS: ANION GAP 13.3 (8-16); CARBON DIOXIDE 27.4 mmol/L (21-32); CREATININE 0.6 mg/dL (0.6-1.3); POTASSIUM 3.7 mmol/L (3.5-5.1)
[2022-06-11] MEDS: ENOXAPARIN 40 MG/0.4 ML SYR SUBQ SCH (11:42)
--- NOTE | 2022-06-11 15:02 | NUR ---
PREPARING PT FOR DISCHARGE, PROVIDED COLOSTOMY CARE. PT STATES HE WANTS HIS CLOTHES BACK, NOTIFIED SECURITY. PER SECURITY LOOKING FOR HIS CLOTHES. PT REFUSE PICTURES OF WOUNDS ON ABHIJEET AREA.
--- NOTE | 2022-06-11 15:28 | NUR ---
RECEIVED CALL FROM [facility] TRANSP[facility]. PICKUP TIME HAS CHANGED FROM 3:30PM TO 6:00PM
--- NOTE | 2022-06-11 15:31 | NUR ---
06/11/22 RD INITIAL ASSESSMENT COMPLETED PLEASE REFER TO NUTRITION ASSESSMENT UNDER CARE ACTIVITY FOR ESTIMATED NUTRITIONAL NEEDS. 1. CONTINUE REGULAR DIET TOLERATED 2. MONITOR GI, PO INTAKE, AND LAB VALUES. 3. RD TO FOLLOW-UP 3-5 DAYS, MODERATE RISK REVIEWED BY JAYNE ANDREW RD
[2022-06-11 16:00] VITALS: BP 153/96
--- NOTE | 2022-06-11 19:15 | NUR ---
ENDORSED PT TO SPINE SPECIALIST NURSE FOR CONTINUITY OF CARE. PT IN STABLE CONDITION.
--- NOTE | 2022-06-11 19:16 | NUR ---
RECEIVED ENDORSEMENT FROM DELMIS SEN, PATIENT WAS DRESSED IN CIVILIAN CLOTHING READY FOR DISCHARGE. PATIENT ALERT AND ORIENTED. IV LINE DISCONTINUED AND [id number] ID WAS REMOVED BY PREVIOUS SHIFT. PATIENT DENIED ANY PAIN/DISCOMFORT. PATIENT DENIED ANY RESPIRATORY DISTRESS. NURSING NOTED CHEST RISING AND FALLING WITHOUT INCIDENT. PATIENT WILL BE DISCHARGED TO HOME ([place]) TO THE CARE OF HIS MOTHER. SIDE RAILS UP X 3 AND PADDED. NO NOTED SEIZURE ACTIVITY DURING AM SHIFT AND NONE AT THIS TIME. PATIENT HAS ALL OF HIS DISCHARGE PAPERWORK AT BEDSIDE. AWAITING [facility]. CALL LIGHT WITHIN REACH. [email or web address]
--- NOTE | 2022-06-11 19:30 | NUR ---
[facility] ARRIVED X 2 TECHNICIANS. PATIENT WAS LEAVING ON [facility]. PATIENT HAS ALL OF THE DISCHARGE PAPERWORK TO RETURN TO THE CARE OF HIS MOTHER. PATIENT HAS APPROPRIATE FACIAL EXPRESS OF HAPPINESS TO LEAVE THE FACILITY. PATIENT WAS MADE AWARE TO KEEP TOES ON LEFT FOOT CLEAN AND DRY. FREE FROM INFECTION. PATIENT WAS IN CIVILIAN CLOTHING FROM WHEN HE CAME TO THE HOSPITAL. NO IV ACCESS AND ID BAND WAS REMOVED BY PREVIOUS SHIFT. [email or web address]
== END 2022-06-11 19:30 | disposition home or self-care (01) | DRG 351 ==
LOC: MED 11:28 → MTU 19:53 → OBSVTOIN 19:53 → MTU 06-05 07:00
PROVIDERS: ADMIT Student in an Organized Health Care Education/Training Program; ATTEND Student in an Organized Health Care Education/Training Program
DX: M62.82 Rhabdomyolysis (principal); G82.20 Paraplegia, unspecified; R45.851 Suicidal ideations; F41.9 Anxiety disorder, unspecified; I10 Essential (primary) hypertension; R74.01 Elevation of levels of liver transaminase levels; Z20.822 Contact with and (suspected) exposure to COVID-19; F32.A Depression, unspecified; F43.10 Post-traumatic stress disorder, unspecified; F15.10 Other stimulant abuse, uncomplicated; F12.10 Cannabis abuse, uncomplicated; Z93.3 Colostomy status; T14.8XXS Other injury of unspecified body region, sequela; W34.00XS Accidental discharge from unspecified firearms or gun, sequela
CPT/HCPCS: 36415; 80048; 80053; 80305; 82550; 82553; 83735; 85025; 87081; 87635-QW; 99285; C9803-CS; G0480; G0482; J1650; J2060

== ENCOUNTER 2022-07-21 17:30 | Inpatient (IN) | payer OTHER ==
[~2022-07-21] VITALS: Ht 170.2 cm; Wt 63.0 kg
[~2022-07-21 17:30] MED LIST changes: +ACET-9525 PO; +BACL10TA4 PO; -BACTO TP; -CEPH-588 PO; +GABA100C PO; +METH-1681 PO; -RISP3TAB3 PO
[2022-07-21 17:31] VITALS: BP 148/100
--- NOTE | 2022-07-21 17:38 | NUR ---
LIVES WITH MOM IN [place]
--- NOTE | 2022-07-21 17:40 | NUR ---
[facility] TO ER BED 6
[2022-07-21 18:18] LABS: BASOPHILS # (AUTO) 0.1 K/uL (0.00-0.22); BASOPHILS % (AUTO) 0.7 % (0.0-2.0); EOSINOPHILS # (AUTO) 0.1 K/uL (0-0.4); EOSINOPHILS % (AUTO) 0.5 % (0.0-4.0); HEMATOCRIT 43.9 % (36-52); HEMOGLOBIN 14.5 g/dL (12.0-18.0); LYMPHOCYTES # (AUTO) 2.3 K/uL (2.0-11.5); LYMPHOCYTES % (AUTO) 20.1 % (20.5-51.1); MEAN CORPUSCULAR HEMOGLOBIN 28 pg (27-31); MEAN CORPUSCULAR HGB CONC 33 g/dL (33-37); MEAN CORPUSCULAR VOLUME 85.5 fL (80-94); MONOCYTES % (AUTO) 8.6 % (1.7-9.3); NEUTROPHILS % (AUTO) 70.1 % (42.2-75.2); PLATELET COUNT (AUTO) 528 K/uL (140-450); RED BLOOD CELL COUNT(AUTO) 5.14 MIL/uL (4.20-6.10); RED CELL DISTRIBUTION WIDTH 14.1 % (11.6-13.7); WHITE BLOOD COUNT (AUTO) 11.5 K/uL (4.8-10.8)
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
[2022-07-21 18:33] LABS: ALBUMIN 3.2 g/dL (3.4-5.0); ANION GAP 17.6 (8-16); ASPARTATE AMINOTRANSFERASE 31 U/L (15-37); CARBON DIOXIDE 22.6 mmol/L (21-32); CHLORIDE 105 mmol/L (98-107); CREATININE 0.9 mg/dL (0.6-1.3); GFR ARICAN-AMERICAN 134 mL/min (>90); GLUCOSE 98 mg/dL (74-106); POTASSIUM 4.2 mmol/L (3.5-5.1); SODIUM SERUM 141 mmol/L (136-145); TOTAL BILIRUBIN 0.6 mg/dL (0.0-1.0); UREA NITROGEN, BLOOD 19 mg/dL (7-18)
[2022-07-21 18:35] LABS: SALICYLATE < 2.8 mg/dL (2.8-20.0)
--- NOTE | 2022-07-21 19:20 | NUR ---
Report given to MCKINLEY Smith for transfer of care.
[2022-07-21] MEDS ORDERED: NACL 0.9% 2,000 ML IV ONE (19:30)
[2022-07-21] MEDS ORDERED: VANCOMYCIN 1,000 MG in DEXTROSE 5% 250 ML IV ONE (19:30)
--- NOTE | 2022-07-21 20:00 | NUR ---
ATTEMPTED TO IV INSERTION X2, PT CONTINUED TO MOVE AROUND AND ATTEMPTED TO PULL ON STAFF. IV INSERTION UNSUCCESSFUL, CHARGE NURSE AND ER DOCTOR AWARE
--- NOTE | 2022-07-21 20:50 | NUR ---
PT CONTINUES TO APPEAR CONFUSED AND UNABLE TO ANSWER DIRECT QUESTIONS. PT HAS VISIBLE WOUNDS, STAGE 2 ULCERS ON SACRUM, SORES ON R TOES, R INER CALF LACERATION AND L THIGH LACERATION. PT HAS A OSTOMY. PMH- DEPRESSION NKA
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
--- NOTE | 2022-07-21 21:15 | NUR ---
SOFT RESTRINTS APPLIED PER ER DOCTORS ORDER.
[2022-07-21] MEDS ORDERED: VANCOMYCIN 1,000 MG VIAL ONE (22:02)
--- NOTE | 2022-07-21 22:15 | NUR ---
PT CONTINUED TO PULL ON OSTOMY BAG. REPLACED SUCCESSFULLY X2. PT CONTINUES TO MUMBLE RANDOM VERBAL THOUGHTS.
[2022-07-21] MEDS ORDERED: diphenhydrAMINE 50 MG/ML VIAL IVP ONE (22:40)
[2022-07-21] MEDS ORDERED: LORazepam 2 MG/ML VIAL IVP ONE (22:40)
[2022-07-21] MEDS ORDERED: HALOPERIDOL IM 5 MG/ML VIAL IVP ONE (22:40)
--- NOTE | 2022-07-21 23:23 | NUR ---
PT TOLERATING MEDICATION WELL, RESPIRATIONS EVEN AND UNLABORED.
[2022-07-21] MEDS ORDERED: VANCOMYCIN PER PHARMACY MC PRN (23:40)
--- NOTE | 2022-07-22 01:15 | NUR ---
pt resting in room, respirations even and unlabored. pt awaiting admission
[2022-07-22 03:52] LABS: BARBITURATE, URINE NEGATIVE ng/ml (NEG <=200); BENZODIAZEPINE, URINE POSITIVE ng/mL (NEG <=200); CANNABINOID, URINE NEGATIVE ng/mL (NEG <=50); COCAINE, URINE NEGATIVE ng/mL (NEG <=300); OPIATE, URINE NEGATIVE ng/mL (NEG <=2000); PHENCYCLIDINE SCREEN,URINE NEGATIVE ng/mL (NEG <=25)
--- NOTE | 2022-07-22 04:03 | NUR ---
pt awaiting admission resting in room with respirations even and unlabored
--- NOTE | 2022-07-22 07:30 | NUR ---
Pt report given to wade nelson. Transfer of care at this time.
--- NOTE | 2022-07-22 07:49 | NUR ---
Patient will be admitted to care of dr Shaikh Quiñonez. Admited to Med/Surg. Will go to room. Belongings list completed. Report to .
--- NOTE | 2022-07-22 08:25 | NUR ---
PATIENT ARRIVED TO [facility] VIA GURNEY. PT DROWSY NOT AROUSABLE. RESPIRATIONS EVEN AND UNLABORED ON RA. IV ON R A/C 22G. SL. ON RESTRAINTS. OSTOMY BAG ON LUQ. ALL SAFETY PRECAUTIONS IN PLACE. PT PLACED ON 1:1 WITH SITTER.
[2022-07-22] MEDS: VANCOMYCIN 1.25GM PREMIX 250 ML IV SCH ×2 (09:00→20:09)
--- NOTE | 2022-07-22 10:07 | NUR ---
PATIENT HAS BEEN SCREENED AND CATEGORIZED MODERATE NUTRITION RISK. PATIENT WILL BE SEEN WITHIN 3-5 DAYS OF ADMISSION. REVIEWED BY JAYNE ANDREW RD Addendum: 07/22/22 at [address] [facility] REFERRAL RECEIVED ON 07/22/22. REFERRAL DOES NOT MEET HIGH RISK CRITERIA PER HOSPITAL POLICY. PT WILL BE SEEN AND ASSESSED ACCORDING TO THE NUTRITION CARE POLICY.
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
[2022-07-22 11:42] VITALS: BP 148/99
--- NOTE | 2022-07-22 13:06 | NUR ---
FNS CONSULT HAS BEEN RECEIVED FOR WOUNDS. PATIENT HAS BEEN RE-SCREENED HIGH RISK AND WILL BE SEEN WITHIN 1-2 DAYS OF RECEIVING THE FNS CONSULT. 07/23/22-07/24/22
--- NOTE | 2022-07-22 14:07 | NUR ---
ATTEMPT TO DO SKIN ASSESSMENT, PT. REFUSED TO TURN, RISK AND BENEFIT EXPLAINED, PT. REMAINS SILENT AND NOT MOVING.
[2022-07-22 16:00] VITALS: BP 130/81
--- NOTE | 2022-07-22 19:30 | NUR ---
ENDORSED PT TO ELASTIC ATTACHER ZIGZAG NURSE FOR CONTINUITY OF CARE. PT STABLE.
--- NOTE | 2022-07-22 19:30 | NUR ---
RECEIVED REPORT FROM DAY SHIFT NURSE DELMIS FOR CONTINUITY OF CARE. PATIENT IS STABLE. PATIENT IS AWARE OF HIS NAME AND , BUT IS NOT REALLY ANSWERING ANY QUESTIONS. PATIENT IS ON ROOM AIR, BREATHING IS NORMAL WITH SYMMETRICAL RISE AND FALL OF CHEST. IV IS A 22G RAC, NO FLUIDS RUNNING AT THIS TIME (SALINE LOCKED). PATIENT IS SLEEPING IN BED, LYING SUPINE. BED IS IN LOWEST POSITION, WHEELS LOCKED, CALL LIGHT IN PLACE. WILL CONTINUE TO OBSERVE PATIENT.
[2022-07-22 20:00] VITALS: BP 146/81
--- NOTE | 2022-07-22 22:00 | NUR ---
WOKE PATIENT UP TO ADMINISTER 2100 VANCOMYCIN IVPB. PATIENT IS GROGGY, BUT WAS COOPERATIVE WITH ATTACHING IV LINE TO ARM. STARTED IVPB ON PATIENT, MEDICATION STARTED SUCCESSFULLY WITHOUT ANY ISSUES WITH IV. RECEIVED PHONE CALL FROM [facility] AND SPOKE WITH ERIC. ERIC WAS INQUIRING IF PATIENT WAS MEDICALLY CLEARED FOR DISCHARGE FOR POSSIBLE TRANSFER TO [facility]. I INFORMED ERIC THAT I WAS NOT AWARE OF THE PATIENT BEING DISCHARGED TO [facility] AND DID NOT SEE ANY D/C ORDER ON FILE. ERIC SAID OKAY AND ASKED ME ABOUT PATIENT'S HISTORY. I INFORMED ERIC THAT PATIENT HAD A HISTORY OF DEPRESSION, PTSD, AND PARAPLEGIA. ERIC ASKED ABOUT THE PARAPLEGIA STATING THAT THE PATIENT WAS AT [facility] IN 2017 AND THERE WAS NO PARAPLEGIA. SHE ASKED IF PATIENT USES A WHEELCHAIR. I WENT INTO ROOM AND ASKED PATIENT, PATIENT WAS NOT ANSWERING THE QUESTION AT FIRST, BUT FINALLY STATED TO ME, "NO, I JUST LAY IN BED". I INFORMED ERIC THAT THE PATIENT STATED THAT HE DOESN'T USE A WHEELCHAIR AT HOME, JUST LAYS IN BED. SHE SAID OKAY AND ASKED FOR US TO GIVE HER A CALL WHEN PATIENT MEDICALLY CLEAR FOR D/C AND ORDERS ARE ON FILE. [facility] [phone] (ERIC).
[2022-07-23 04:00] VITALS: BP 135/88
--- NOTE | 2022-07-23 05:00 | NUR ---
BANDAGES WERE PLACED ON WOUND LOCATED ON: COCCYX, RIGHT HIP, AND LEFT HIP. BANDAGE ON RIGHT RAM IS DRY AND INTACT. PATIENT WAS CHANGED; PATIENT HAD VOIDED, OSTOMY BAG WAS CLEAN THROUGHOUT NIGHT (NO BM). PATIENT HAS SLEPT THROUGHOUT THE NIGHT. WILL CONTINUE TO OBSERVE PATIENT.
--- NOTE | 2022-07-23 07:30 | NUR ---
RECEIVED REPORT FROM HOGSHEAD SALVAGE NURSE FOR CONTINUITY OF CARE, POC DISCUSSED. PT IS RESTING IN BED ON ROOM AIR WITH CHEST RISING AND FALLING EVEN AND UNLABORED. ACUTE S/S OF DISTRESS. SITTER 1:1. ALL SAFETY MEASURES IN PLACE, CALL LIGHT WITHIN REACH.
--- NOTE | 2022-07-23 07:36 | NUR ---
ENDORSED TO DAY SHIFT NURSE BO FOR CONTINUITY OF CARE. PATIENT IS STABLE.
[2022-07-23 08:43] LABS: ANION GAP 11.3 (8-16); CARBON DIOXIDE 26.5 mmol/L (21-32); CREATININE 0.6 mg/dL (0.6-1.3); POTASSIUM 3.8 mmol/L (3.5-5.1)
--- NOTE | 2022-07-23 08:47 | NUR ---
SPOKE WITH DIXIE FROM [facility] RUBBER INSULATOR. ALL QUESTIONS ANSWERED.
[2022-07-23] MEDS: VANCOMYCIN 1.25GM PREMIX 250 ML IV SCH ×2 (09:00→21:46)
[2022-07-23] MEDS ORDERED: SIMETHICONE 40 MG/0.6 ML PO PRN (11:05)
[2022-07-23] MEDS: LORazepam 2 MG/ML VIAL IM/IVP PRN (11:32)
--- NOTE | 2022-07-23 14:31 | NUR ---
07/23/22 RD INITIAL ASSESSMENT COMPLETED PLEASE REFER TO NUTRITION ASSESSMENT UNDER CARE ACTIVITY FOR ESTIMATED NUTRITIONAL NEEDS. 1. CONTINUE REGULAR DIET TOLERATED 2. RECOMMEND ENSURE 1XDAY FOR WOUND HEALING -WILL PROVIDE 350KCAL AND 20G PROTEIN DAILY 3. RD TO FOLLOW-UP 7 DAYS, LOW RISK REVIEWED BY JAYNE ANDREW RD
--- NOTE | 2022-07-23 15:24 | NUR ---
DC PLANNING A 22 Y.O MALE PATIENT ADMITTED 07/21/22 FOR SUICIDE ATTEMPT BY CUTTING HIMSELF.PLACED ON 5150 HOLD IN ER .SITTER AT BEDSIDE .ON ATIVAN IVP PRN.PSYCH CX REQUESTED.I&D FOLLOWING FOR CELLULITIS OF BUTTOCKS .CM TO FOLLOW. Addendum: 07/25/22 at 0914 by ELSA WEEMS CM DC PLANNING SEEN BY PSYCHIATRIST 07/24/22 AND RECOMMENDED PSYCH MED TO CONTROL HALLUCINATION AND TRANSFER TO SCI/BRAIN INJURY UNIT.CM TO FOLLOW.
--- NOTE | 2022-07-23 15:45 | NUR ---
CALLED TELEPSHYCH, VOICEMAIL LEFT WITH RETURN NUMBER PROVIDED.
[2022-07-23 16:00] VITALS: BP 135/88
[2022-07-23] MEDS ORDERED: VANCOMYCIN PER PHARMACY MC PRN (17:55)
--- NOTE | 2022-07-23 19:02 | NUR ---
PT ENDORSED TO DICTATING MACHINE MECHANIC NURSE IN STABLE CONDITION.
--- NOTE | 2022-07-23 19:03 | NUR ---
RECD. SITTING ON BED, RESPIRATION EVEN AND UNLABORED. ALMOST DONE EATING HIS DINNER. A/OX3. RESPIRATION EVEN AND UNLABORED. IV SALINE LOCK AT THE LEFT FOREARM G22, PATENT AND INTACT. WITH SKIN TEAR AT THE RIGHT LOWER EXTREMITY AND WOUNDS ON THE LEFT TOES AND SACRAL WOUND. PATIENT IS PARAPLEGIC, BEDBOUND. DENIES PAIN 0/10.
[2022-07-23 20:00] VITALS: BP 142/99
--- NOTE | 2022-07-23 20:00 | NUR ---
Patient's Plan of Care was discussed and reviewed with MCKINLEY JOYA
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
--- NOTE | 2022-07-23 20:30 | NUR ---
REFUSED BILATERAL HEEL PROTECTORS AND DOES NOT WANT TO WEAR PATIENT'S GOWN.
--- NOTE | 2022-07-23 21:46 | NUR ---
SLEEPING COMFORTABLY IN BED. IVPB VANCOMYCIN INFUSED BY MEDARDO BURLESON.
--- NOTE | 2022-07-23 22:00 | NUR ---
ADMINISTERED 2100 MEDICATION TO PATIENT. MEDICATION WAS ADMINISTERED SUCCESSFULLY WITHOUT ANY ISSUES WITH IV. NOTIFIED MCKINLEY JOYA OF ADMINISTRATION.
--- NOTE | 2022-07-24 | NUR ---
CLEANSED AND DIAPER CHANGED. BEDDINGS CHANGED. MADE COMFORTABLE IN BED WITH PILLOWS.
--- NOTE | 2022-07-24 02:00 | NUR ---
SLEEPING ON HIS LEFT SIDE. RESPIRATION EVEN AND UNLABORED.
--- NOTE | 2022-07-24 03:45 | NUR ---
COLOSTOMY BAG AND DIAPER CHANGED. MADE COMFORTABLE IN BED WITH PILLOWS.
--- NOTE | 2022-07-24 04:05 | NUR ---
RESTING IN BED, HEAD COVERED WITH BLANKET, CRYING. WHEN ASKED WHY HE IS CRYING, DID NOT REPLY BUT STOP CRYING.
--- NOTE | 2022-07-24 05:30 | NUR ---
COMPLAINED OF CRAMPS AND PAIN IN THE LOWER EXTREMITIES, WILL INFORMED MD AND REQUEST FOR PAIN MEDICATION.
--- NOTE | 2022-07-24 06:00 | NUR ---
WAITING FOR RETURN CALL FROM DR. WHITTINGTON, BAR TURNER FOR DR. MEYER.
[2022-07-24] MEDS: HYDROcodone/APAP 10/325 MG 1 TAB TAB PO PRN ×3 (06:31→20:42)
--- NOTE | 2022-07-24 06:31 | NUR ---
MEDICATED WITH NORCO PER MD ORDER.
--- NOTE | 2022-07-24 07:13 | NUR ---
SLEEPING COMFORTABLY IN BED, NO APPEARANCE OF PAIN OR DISCOMFORT, 0/10. NO SUICIDAL ATTEMPT NOTED DURING THIS SHIFT. SAFETY MAINTAINED. NEW SITTER MONITORING PATIENT AT THE DOOR. ENDORSED TO AM SHIFT NURSE FOR CONTINUITY OF CARE.
--- NOTE | 2022-07-24 07:30 | NUR ---
RECEIVED REPORT FROM LOADING RACK SUPERVISOR NURSE, ALL NIGHT EVENTS DISCUSSED. SITTER 1:1. NO ACUTE S/S OF DISTRESS, ALL SAFETY MEASURES IN PLACE. PENDING TELEPSYCH CONSULT.
[2022-07-24 08:00] VITALS: BP 155/82
--- NOTE | 2022-07-24 08:05 | NUR ---
CALLED TELEPSYCH FOR PENDING CONSULT, NO ANSWER. VOICEMAIL LEFT.
--- NOTE | 2022-07-24 08:10 | NUR ---
[facility], STATED THEY WILL CALL BACK.
[2022-07-24] MEDS: LORazepam 2 MG/ML VIAL IM/IVP PRN (08:28)
[2022-07-24] MEDS: VANCOMYCIN 1.25GM PREMIX 250 ML IV SCH (08:29)
--- NOTE | 2022-07-24 10:12 | NUR ---
WOUND CARE NOTE: TOTAL CARE PROVIDE S WITH CHEYENNE GUTIERREZ, PT COOPERATE WITH CARE, SKIN ASSESSED. PT. ADMITTED WITH PI TO SACRALCOCCYX AREA. AND CHRONIC SCABS TO LEFT TOES AND RLE SKIN TEARS.. LLQ ABD COLOSTOMY ABHIJEET-STOMA, SKIN DRY AND INTACT.. POSITION PT. TO SIDE LYING BUR QUICKLY PT. CHANGE TO SUPINE POSITION. -SACRALCOCCYX PI STAGE 3 4X4X0.3CM WOUND BED 100% PALE PINK, MOIST, NO ODOR, ABHIJEET-WOUND SKIN THIN TO BONE, EASILY TO BREAKS WITH BLANCHABLE REDNESS. -RIGHT LOWER LEG SKIN TEARS MEDIAL 4X3X0.1CM AND MEDIAL LEG 3X2X0.1CM,WOUND BEDS PINK, MOIST ,NO ODOR, ABHIJEET-WOUND SKIN OLD SCARS -LEFT FOOT MULTIPLE TOES DRY STABLE SCABS WITH LARGEST LEFT 2ND TOE 4X1CM RECOMMENDATIONS: -CLEANSE RIGHT LE WOUNDS AND SACRAL COCCYX WITH NS, PAT DRY, APPLY THERAHONEY GEL AND COVER WITH DRY DRESSING QD AND PRN IF SOILING -PAINT LEFT HALLUX, 2ND, 3RD, AND 4TH DIGIT TOES WITH BETADINE SWAP STICKS BID AND ANNE-MARIE -APPLY HYGRAGUARD TO TRUNK OF BODY,UPPER AND LOWER EXTREMITIES, BUTTOCKS AND SCROTUM BID AND ANNE-MARIE -POSITIONING: TURN AND REPOSITION PATIENT Q 2H OR SOONER USE PILLOWS TO KEEP BONY PROMINENCES FROM DIRECT CONTACT WITH SURFACES USE REPOSITIONING WEDGES TO PROVIDE 30-DEGREE ANGLE FOR SIDE LYING POSITIONS OFFLOADING OR FOAM DRESSING TO ALL TUBING TO PREVENT MEDICAL DEVICES RELATED PRESSURE INJURY -RE-EVALUATING AND MANAGING INCONTINENCE MONITOR SKIN CONDITION DURING POSITION CHANGE DO NOT MASSAGE REDNESS, BONY PROMINENCES FREQUENT ABHIJEET-CARE AND PROVIDE BARRIER CREAMS PRN IF SOILING MOISTURE CONTROL BY OFFER BED ESTRADA/URINAL /ABSORBENT PAD TO WICK AND HOLD MOISTURE KEEP SKIN DRY AND PROTECT FROM FRICTION -MANAGE FRICTION/SHEAR/MOBILITY KEEP HOB AT THE LOWEST LEVEL OF ELEVATION NO MORE THAN 30 DEGREE UNLESS OTHERWISE CONTRAINDICATED USE LIFT SHEET OR TRANSFER DEVICE TO MOVE PATIENT AND PREVENT LATERAL SHEER. PROTECT HEELS, ELBOWS BONY PROMINENCES WITH SKIN BERRIES OR FOAM DRESSING IF EXPOSED TO FRICTION OFFLOAD BILATERAL HEELS BY PLACING PILLOWS UNDER CALVES AT ALL TIMES, UNLESS OTHERWISE CONTRAINDICATED -PRESSURE REDISTRIBUTION SURFACE THERAPY MARI ISOFLEX MATTRESS -NUTRITION: PLEASE FOLLOW RD RECOMMENDATIONS AND OFFER NUTRITION SUPPLEMENTS IF ORDERED. PLEASE CONTACT WOUND CARE NURSE FOR ANY QUESTION AND CHANGE OF WOUND CONDITION.
--- NOTE | 2022-07-24 11:32 | NUR ---
PSYCH CONSULT COMPLETED BY DR. VILLELA. PT ABLE TO ANSWER ALL QUESTIONS. DR VILLELA PROVIDED WITH DR KEATING CONTACT INFORMATION. STATED HE WILL CONTACT THE MD REGARDING POC AND NEED FOR ANTIPSYCHOTICS. DID NOT STATE THERE WOULD CONTINUE A 3570 HOLD.
[2022-07-24] MEDS: THERAHONEY GEL 42.5 GM TP SCH (12:35)
[2022-07-24] MEDS: HYDRAGUARD CREAM TP SCH (12:35)
[2022-07-24] MEDS: GAUZE TP SCH (12:35)
--- NOTE | 2022-07-24 13:14 | NUR ---
Per nursing notes, patient was re-evaluated by psych . Did not state if 5150 is going to be renewed since previous 5150 will set to at 17:17 today. Will monitor nursing notes for continuation of care.
--- NOTE | 2022-07-24 13:18 | NUR ---
DC PLANNING: YOLIS DISCUSSED WITH DR KEATING ATTENDING FOR DC PLACEMENT PATIENT HAS MEDICAL NEEDS THAT ANY PSYCH FACILITIES CAN NOT PROVIDE THE CARE PER MD WILL DISCUSS WITH PSYCH DR. LAGOS SPOKE WITH [facility] YOLIS GUTIERREZ TO HELP US WITH THE PLACEMENT . CM TO FOLLOW Addendum: 07/25/22 at 1626 by Sara Webb RN DC PLANNING: JAVIER KEATING HE SPOKE WITH AARON HOLBROOK AND RECOMMENDED [facility] WITH [facility] [place] FOR SPINAL AND BRAIN INJURY. CM FAXED TO [facility]. CM TO FOLLOW Addendum: 07/29/22 at 1654 by Sara Webb RN DC PLANNING: RECEIVED A CALL FROM [facility] SPOKE WITH SALMA SHARIF DECLINED THE CASE. YOLIS DISCUSSED WITH [facility] YOLIS GUTIERREZ REGARDING DC PLAN TO [facility] FOR WOUND CARE. MIKE GUTIERREZ WILL DISCUSSED IT WITH HARD PLACEMENT TEAM AND AT THE SAME TIME TO FAX TO SEVERAL SNFS. [facility]XED TO [facility] , [facility], [facility], [facility], [facility]. CM TO FOLLOW
[2022-07-24 16:00] VITALS: BP 147/99
--- NOTE | 2022-07-24 17:36 | NUR ---
OSWALDO SPANGLER AT BEDSIDE REEVALUATING 4539 RENEWAL
--- NOTE | 2022-07-24 18:49 | NUR ---
COLOSTOMY BAG CHANGED. PT TOLERATED. ENLARGED HERNIA NOTED, WILL NOTIFY .
--- NOTE | 2022-07-24 20:00 | NUR ---
Patient's Plan of Care was discussed and reviewed with SARAH BETH SEN:
--- NOTE | 2022-07-24 20:10 | NUR ---
RECEIVED REPORT FROM DAY SHIFT NURSE FOR CONTINUITY OF CARE. PT IS ON 5150 OF 07/20. HAS SINCE BEEN RENEWED OF 1739 TODAY. DUE TO ON 07/27 AT 1740. PT IS ALERT AND ORIENTED X2-3. ON ROOM AIR WITH NO SIGNS OF DISTRESS NOTED. MULTIPLE WOUNDS INCLUDING LACERATIONS TO LEFT LOWER LEG, RIGHT HIP, AND MULTIPLE SCABS ON TOES. WILL MONITOR THE PT 1.1 THROUGHOUT THE NIGHT.
--- NOTE | 2022-07-24 22:01 | NUR ---
PT REPORTED PAIN LEVEL OF 10/10. NORCO GIVEN PRN. PT TOLERATED WELL. WILL CONTINUE WITH 1:1 MONITORING.
[2022-07-25] MEDS: GAUZE TP SCH ×2 (00:08→13:00)
[2022-07-25] MEDS: HYDRAGUARD CREAM TP SCH ×2 (00:09→13:00)
[2022-07-25 00:11] VITALS: BP 155/97
--- NOTE | 2022-07-25 00:14 | NUR ---
PT BECOMING RESTLESS. CRYING IN BED. STATES HE MISSES HIS UNCLE WHO . IV SITE PULLED OUT, WILL ATTEMPT TO START NEW IV. WOUND CARE PERFORMED. PT TOLERATED WELL. WILL CONTINUE WITH 1:1 MONITORING.
--- NOTE | 2022-07-25 02:33 | NUR ---
NEW IV INSERTED AT RIGHT WRIST, 20 GAUGE. INTACT AND PATENT. PT NOW ASLEEP AT THIS TIME. NO DISTRESS NOTED. WILL CONTINUE WITH 1:1 MONITORING.
--- NOTE | 2022-07-25 04:38 | NUR ---
PT AWAKE AND CRYING IN BED. PT DENIES ANY PAIN AT THIS TIME. STATES HE WISHES HE COULD HUG HIS UNCLE. NO OTHER DISTRESS NOTED. WILL CONTINUE WITH 1:1 MONITORING.
[2022-07-25] MEDS: LORazepam 2 MG/ML VIAL IM/IVP PRN ×2 (05:21→16:56)
--- NOTE | 2022-07-25 05:21 | NUR ---
PATIENT CRYING AND RESTLESS, ATIVAN GIVEN ORDERED.
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
--- NOTE | 2022-07-25 05:50 | NUR ---
PATIENT NOW CALM AND ASLEEP.
--- NOTE | 2022-07-25 06:31 | NUR ---
PT ASLEEP AND IN STABLE CONDITION. IV SITE STILL INTACT AND PATENT. PT VOIDED 4 TIMES DURING SUPERVISORY CIVIL ENGINEER. WILL ENDORSE TO DAY SHIFT NURSE FOR CONTINUITY OF CARE.
--- NOTE | 2022-07-25 07:51 | NUR ---
RECEIVED PATIENT FROM PM SHIFT NURSE FOR CONTINUITY OF CARE. SEEN PATIENT ON BED TOSSING AND TURNING. ASLEEP. SITTER PATIENT FOR PATIENT.
[2022-07-25 08:00] VITALS: BP 148/90
[2022-07-25 08:17] LABS: BASOPHILS % (AUTO) 0.4 % (0.0-2.0); EOSINOPHILS # (AUTO) 0.2 K/uL (0-0.4); EOSINOPHILS % (AUTO) 2.3 % (0.0-4.0); HEMATOCRIT 37.7 % (36-52); HEMOGLOBIN 12.2 g/dL (12.0-18.0); LYMPHOCYTES # (AUTO) 2.4 K/uL (2.0-11.5); LYMPHOCYTES % (AUTO) 26.3 % (20.5-51.1); MEAN CORPUSCULAR HEMOGLOBIN 28 pg (27-31); MEAN CORPUSCULAR HGB CONC 32 g/dL (33-37); MEAN CORPUSCULAR VOLUME 86.3 fL (80-94); MONOCYTES # (AUTO) 0.5 K/uL (0.8-1.0); MONOCYTES % (AUTO) 5.9 % (1.7-9.3); NEUTROPHILS % (AUTO) 65.1 % (42.2-75.2); PLATELET COUNT (AUTO) 468 K/uL (140-450); RED BLOOD CELL COUNT(AUTO) 4.37 MIL/uL (4.20-6.10); WHITE BLOOD COUNT (AUTO) 9.3 K/uL (4.8-10.8)
[2022-07-25 09:16] LABS: ANION GAP 14.8 (8-16); CARBON DIOXIDE 27.3 mmol/L (21-32); CREATININE 0.6 mg/dL (0.6-1.3); POTASSIUM 4.1 mmol/L (3.5-5.1)
--- NOTE | 2022-07-25 12:00 | NUR ---
PATIENT ASLEEP, BREATHING. MONITORING CONTINUED
[2022-07-25] MEDS: THERAHONEY GEL 42.5 GM TP SCH (13:00)
[2022-07-25] MEDS: HYDROcodone/APAP 10/325 MG 1 TAB TAB PO PRN (14:23)
[2022-07-25 16:00] VITALS: BP 122/73
--- NOTE | 2022-07-25 16:56 | NUR ---
PT WAS CRYING AND BANGING HEAD ON SIDERAIL WHILE SITTER HERNAN ATTEMPTED TO HOLD HEAD BACK. ATTEMPTED TO CALL PRIMARY RN GOGO WITHOUT SUCCESS. I ADMINISTERED PRN ATIVAN VIA NEW 20G IV ON LEFT HAND THAT I INSERTED RIGHT BEFORE STUD DAIRY CATTLE FARMER. PT WAS VISIBLY MORE RELAXED, AND PROMPTLY FELL ASLEEP. SITTER STILL AT THE BEDSIDE.
--- NOTE | 2022-07-25 19:00 | NUR ---
ENDORSED PATIENT TO PM SHIFT NURSE FOR CONTINUATION OF CARE.
--- NOTE | 2022-07-25 19:10 | NUR ---
RECEIVED REPORT FROM DAY SHIFT RN FOR CONTINUITY OF CARE. PT IS CURRENTLY SLEEPING IN BED NOT IN ANY DISTRESS. PT HAS 20 GAUGE ON LEFT HAND SALINE LOCK. PT HAS COLOSTOMY ON LEFT ABD. SAFETY PRECAUTIONS TAKEN. WILL CONTINUE TO MONITOR THE PT.
[2022-07-25] MEDS: OLANZapine 5 MG TAB PO SCH (21:29)
--- NOTE | 2022-07-25 23:15 | NUR ---
ENDORSE PT TO NIGHT NURSE SARAH BETH FOR CONTINUITY OF CARE. PT IS STABLE.
--- NOTE | 2022-07-25 23:16 | NUR ---
RECEIVED REPORT FROM RN: TAM FOR CONTINUATION OF CARE. PT ASLEEP AT THIS TIME, CHEST RISE AND FALL NOTED, RESPIRATIONS EVEN AND UNLABORED, WILL CONTINUE TO MONITOR THROUGHOUT SHIFT.
[2022-07-26] VITALS: BP 139/78
--- NOTE | 2022-07-26 00:53 | NUR ---
WOUND CARE PERFORMED. CHANGED DRESSING ON STAGE 3 COCCYX WOUND DUE TO SOILAGE. PT ASLEEP AT THIS TIME, WILL CONTINUE TO MONITOR.
[2022-07-26] MEDS: HYDRAGUARD CREAM TP SCH ×2 (01:00→13:00)
[2022-07-26] MEDS: GAUZE TP SCH ×2 (01:00→13:00)
--- NOTE | 2022-07-26 02:21 | NUR ---
PT IN AND OUT OF SLEEP WITH PERIODS OF ROCKING BACK AND FORTH IN BED AND CRYING. WILL CONTINUE TO MONITOR THE PT.
[2022-07-26] MEDS: HYDROcodone/APAP 10/325 MG 1 TAB TAB PO PRN (04:08)
--- NOTE | 2022-07-26 04:54 | NUR ---
PT IV NO LONGER PATENT, NEW IV WAS STARTED AT RIGHT WRIST, 22 GAUGE. WILL CONTINUE TO MONITOR THE PT.
--- NOTE | 2022-07-26 06:21 | NUR ---
PT REMOVED IV SITE, NEW IV SITE PLACED AT LEFT FOREARM 22 GAUGE. WRAPPED AND INTACT. WILL ENDORSE TO DAY SHIFT NURSE IN STABLE CONDITION.
--- NOTE | 2022-07-26 07:20 | NUR ---
RECEIVED REPORT FROM HIGH SCHOOL HISTORY TEACHER FOR CONTINUITY OF CARE. INITIAL ASSESSMENT DONE. IN BED ASLEEP AT THIS TIME. NO C/O PAIN OR DISCOMFORT. CALL LIGHT KEPT WITHIN REACH. WILL CONTINUE TO MONITOR.
[2022-07-26 07:37] LABS: BASOPHILS % (AUTO) 0.4 % (0.0-2.0); EOSINOPHILS # (AUTO) 0.2 K/uL (0-0.4); EOSINOPHILS % (AUTO) 2.3 % (0.0-4.0); HEMATOCRIT 38.5 % (36-52); HEMOGLOBIN 12.5 g/dL (12.0-18.0); LYMPHOCYTES # (AUTO) 2.6 K/uL (2.0-11.5); LYMPHOCYTES % (AUTO) 32.4 % (20.5-51.1); MEAN CORPUSCULAR HEMOGLOBIN 28 pg (27-31); MEAN CORPUSCULAR HGB CONC 33 g/dL (33-37); MEAN CORPUSCULAR VOLUME 86.4 fL (80-94); MONOCYTES # (AUTO) 0.5 K/uL (0.8-1.0); MONOCYTES % (AUTO) 6.8 % (1.7-9.3); NEUTROPHILS # (AUTO) 4.7 K/uL (1.8-7.7); NEUTROPHILS % (AUTO) 58.1 % (42.2-75.2); PLATELET COUNT (AUTO) 495 K/uL (140-450); RED BLOOD CELL COUNT(AUTO) 4.46 MIL/uL (4.20-6.10); WHITE BLOOD COUNT (AUTO) 8.1 K/uL (4.8-10.8)
[2022-07-26 08:00] VITALS: BP 137/85
[2022-07-26 09:05] LABS: ANION GAP 14.4 (8-16); CARBON DIOXIDE 26.8 mmol/L (21-32); CREATININE 0.7 mg/dL (0.6-1.3); POTASSIUM 4.2 mmol/L (3.5-5.1)
[2022-07-26] MEDS: OLANZapine 5 MG TAB PO SCH (09:25)
--- NOTE | 2022-07-26 09:25 | NUR ---
SCHEDULED MEDICATION GIVEN. TOLERATING WELL.
[2022-07-26] MEDS: THERAHONEY GEL 42.5 GM TP SCH (13:00)
[2022-07-26 16:00] VITALS: BP 127/94
--- NOTE | 2022-07-26 16:03 | NUR ---
WOUND CARE DONE. NO BLEEDING, NO DRAINAGE NOTED. TOLERATING WELL.
--- NOTE | 2022-07-26 19:25 | NUR ---
REPORT GIVEN TO ELEAZAR FOR CONTINUITY OF CARE. SITTER AT BEDSIDE. REMAINS STABLE.
--- NOTE | 2022-07-27 06:15 | NUR ---
ASSUMED CONTINUITY OF CARE FROM LEEANNA BAIRD. PT. SLEEPING AT THIS TIME. KEEP ENVIRONMENT SAFE. FALL PRECAUTION AND SUICIDAL PRECAUTION APPLIED. CLOSELY MONITORED CLOSELY 1:1 FOR SUICIDAL PREVENTION.
[2022-07-27 07:14] LABS: BASOPHILS % (AUTO) 0.6 % (0.0-2.0); EOSINOPHILS # (AUTO) 0.2 K/uL (0-0.4); EOSINOPHILS % (AUTO) 2.6 % (0.0-4.0); HEMATOCRIT 38.4 % (36-52); HEMOGLOBIN 12.8 g/dL (12.0-18.0); LYMPHOCYTES # (AUTO) 2.7 K/uL (2.0-11.5); LYMPHOCYTES % (AUTO) 36.5 % (20.5-51.1); MEAN CORPUSCULAR HEMOGLOBIN 28 pg (27-31); MEAN CORPUSCULAR HGB CONC 33 g/dL (33-37); MEAN CORPUSCULAR VOLUME 85.5 fL (80-94); MONOCYTES # (AUTO) 0.5 K/uL (0.8-1.0); MONOCYTES % (AUTO) 7.1 % (1.7-9.3); NEUTROPHILS # (AUTO) 3.9 K/uL (1.8-7.7); NEUTROPHILS % (AUTO) 53.2 % (42.2-75.2); PLATELET COUNT (AUTO) 484 K/uL (140-450); RED BLOOD CELL COUNT(AUTO) 4.49 MIL/uL (4.20-6.10); RED CELL DISTRIBUTION WIDTH 14.1 % (11.6-13.7); WHITE BLOOD COUNT (AUTO) 7.3 K/uL (4.8-10.8)
[2022-07-27 07:25] LABS: ANION GAP 10.9 (8-16); CREATININE 0.6 mg/dL (0.6-1.3); POTASSIUM 3.9 mmol/L (3.5-5.1)
[2022-07-27 08:00] VITALS: BP 137/94
[2022-07-27] MEDS: OLANZapine 5 MG TAB PO SCH ×3 (09:00→20:21)
--- NOTE | 2022-07-27 09:25 | NUR ---
STARTED TO EAT BREAKFAST AT THIS TIME. CALM AND COOPERATIVE. NO UNTOWARD BEHAVIOR OBSERVED.
--- NOTE | 2022-07-27 09:30 | NUR ---
DR. KEATING CAME AND SPOKE TO PT. AT BEDSIDE. PT. CALM AND COOPERATIVE.
--- NOTE | 2022-07-27 10:30 | NUR ---
WOUND CARE/SKIN CARE DONE ON SACRAL, RLE SKIN TEAR, AND LEFT BIG TOE/2ND DIGIT/3RD/DIGIT/4TH DIGIT. REPLACED COLOSTOMY BAG AND SKIN CARE DONE AROUND STOMA. PT. TOLERATED WELL. NO C/O PAIN. KEEP COMFORTABLE ON BED. WILL MONITOR.
[2022-07-27] MEDS: GAUZE TP SCH ×2 (10:41→13:00)
[2022-07-27] MEDS: HYDRAGUARD CREAM TP SCH ×2 (10:42→13:00)
[2022-07-27] MEDS: THERAHONEY GEL 42.5 GM TP SCH ×2 (10:42→14:04)
--- NOTE | 2022-07-27 12:05 | NUR ---
PT. ASKED FOR URINAL, VOIDED WITH 250 ML CLEAR YELLOW URINE OUTPUT. DRINKS 120 ML OF ORANGE JUICE AND CONTINUE TO EAT APPLE (FRUIT). CONTINUE TO MONITOR CLOSELY 1:1.
[2022-07-27 12:20] VITALS: BP 147/101
[2022-07-27] MEDS: HYDROcodone/APAP 5/325 MG 1 TAB TAB PO PRN (12:25)
--- NOTE | 2022-07-27 15:10 | NUR ---
CALLED TELE PSYCH MED AT SPOKE TO JOSE AND INFORMED OF PT. 5150 STATUS RENEWAL. PER JOSE, TELE PSYCH MD WILL CALL BACK. INFORMED CHARGE NURSE ALAINA BAIRD.
[2022-07-27 16:00] VITALS: BP 122/88
--- NOTE | 2022-07-27 17:05 | NUR ---
DR. SHEIKH CALLED BACK AND HAD ZOOM MEETING WITH PATIENT REGARDING 5150 STATUS RENEWAL. PT. CALM AND COOPERATIVE DURING ZOOM MEETING CONVERSATION. INFORMED CHARGE NURSE ALAINA BAIRD.
--- NOTE | 2022-07-27 17:35 | NUR ---
INSERTED ADDITIONAL IV ACCESS ON RIGHT FOREARM GAUGE #20. TOLERATED WELL.
--- NOTE | 2022-07-27 17:50 | NUR ---
PM CARE PROVIDED TO THE PATIENT. COLOSTOMY BAG CHANGED FOR THE 2ND TIME WITH MODERATE AMOUNT OF SOFT STOOL OUTPUT. STOMA CARE ALSO PROVIDED.
--- NOTE | 2022-07-27 19:16 | NUR ---
BEDSIDE REPORT GIVEN TO MAHNAZ BLOOM AT THIS TIME.
--- NOTE | 2022-07-27 19:17 | NUR ---
RECD. RESTING IN BED SLEEPING COMFORTABLY. RESPIRATION EVEN AND UNLABORED. IV SALINE LOCK AT THE LEFT FOREARM G22 PATENT AND INTACT. SAFETY MEASURES AND FALL PRECAUTION APPLIED. NO APPEARANCE OF PAIN NOTED, 0/10. WILL CONTINUE TO MONITOR PATIENT TO ENSURE SAFETY, PATIENT IS SUICIDAL ON 1:1 SITTER.
[2022-07-27 20:00] VITALS: BP 144/78
--- NOTE | 2022-07-27 20:21 | NUR ---
WAKEN UP. SCHEDULED MEDICATION FOR THE NIGHT ADMINISTERED. COOPERATIVE. WENT BACK TO SLEEP AFTER TAKING MEDICATION.
--- NOTE | 2022-07-27 20:27 | NUR ---
Call Center is still aware of patient. Please fax new [phone] to [phone] if further placement is needed
--- NOTE | 2022-07-27 20:30 | NUR ---
5150 FOR RENEWAL TODAY AT 1740 BUT NOW RENEWED. PER ENDORSEMENT THERE'S A NEW RULING THAT 5150 CANNOT BE RENEWED THREE TIMES OR ELSE IT SHOULD BE TAKEN TO COURT. DR. KOBY SHEIKH RECOMMENDED TODAY TO CONTINUE 5150 FOR DTS/GD.
[2022-07-27] MEDS: PRAZOSIN 1 MG CAP PO SCH (20:50)
--- NOTE | 2022-07-27 21:00 | NUR ---
DIAPER CHANGED. COOPERATIVE BUT DOES NOT RESPOND TO QUESTIONS, JUST NOD HEAD. CRIED ONCE. GOES TO SLEEP AGAIN.
--- NOTE | 2022-07-27 22:00 | NUR ---
Patient's Plan of Care was discussed and reviewed with MCKINLEY WALLS
--- NOTE | 2022-07-27 22:26 | NUR ---
CRYING, WHEN ASKED WHY STATED HE HAS NIGHTMARES, THEN STOPPED CRYING.
--- NOTE | 2022-07-27 23:27 | NUR ---
SLEEPING ON HIS RIGHT SIDE. RESPIRATION EVEN AND UNLABORED.
[2022-07-28] VITALS: BP 127/78
[2022-07-28] MEDS: HYDRAGUARD CREAM TP SCH ×2 (00:44→14:50)
[2022-07-28] MEDS: GAUZE TP SCH ×2 (00:44→14:50)
--- NOTE | 2022-07-28 00:44 | NUR ---
DIAPER CHANGED. HYPOGUARD APPLIED ON AFFECTED AREAS AND BETADINE ON LEFT TOES PER MD ORDER. Addendum: 07/28/22 at 0718 by Annabelle Lawrence LVN NOTED: CORRECTION OF ERROR HYDRAGUARD APPLIED.
--- NOTE | 2022-07-28 02:45 | NUR ---
WOKE UP, REQUESTED FOR A SANDWICH. WENT BACK TO SLEEP AFTER EATING.
--- NOTE | 2022-07-28 03:45 | NUR ---
CHANGED BY HIMSELF TO CURLED PRONE POSITION WHILE SLEEPING. ENCOURAGED TO GO BACK TO LAYING ON HIS BACK.
--- NOTE | 2022-07-28 05:00 | NUR ---
SLEEPING COMFORTABLY, RESPIRATION EVEN AND UNLABORED.
[2022-07-28] MEDS: THERAHONEY GEL 42.5 GM TP SCH (06:50)
--- NOTE | 2022-07-28 06:50 | NUR ---
DIAPER CHANGED, CLEANSED SACRAL WOUND WITH NS DUE TO SOILING, APPLIED THERA HONEY AND COVERED WITH DRESSING. PATIENT IS CRYING, COMFORTED WITH WORDS. MADE COMFORTABLE IN BED WITH PILLOWS. REFUSED MATTRESS COVER TO BE CHANGED ONLY PILLOW CASES.
--- NOTE | 2022-07-28 07:08 | NUR ---
BEDSIDE REPORT GIVEN TO DAIN RIVERS. PT. RESTING ON BED COMFORTABLY. NO UNTOWARD BEHAVIOR DURING SHIFT. IN STABLE CONDITION. Addendum: 07/28/22 at 1912 by Karl Rose LVN LVN ENTERED WRONG TIME.
--- NOTE | 2022-07-28 07:15 | NUR ---
CONDITION REMAIN STABLE. ABLE TO SLEPT WELL. NO SUICIDAL BEHAVIOR NOTED DURING THIS SHIFT. NEW SITTER MONITORING PATIENT NEAR DOOR. ENDORSED TO DUYEN SEN FOR CONTINUITY OF CARE.
--- NOTE | 2022-07-28 07:15 | NUR ---
ASSUMED CONTINUITY OF CARE. INITIAL ASSESSMENT DONE. PT. SLEEPING IN COMFORTABLE POSITION. KEEP ENVIRONMENT SAFE. CLOSELY MONITORED BY A SITTER 1:1 FOR SUICIDAL PREVENTION.
[2022-07-28 07:41] LABS: BASOPHILS # (AUTO) 0.1 K/uL (0.00-0.22); BASOPHILS % (AUTO) 0.8 % (0.0-2.0); EOSINOPHILS # (AUTO) 0.2 K/uL (0-0.4); EOSINOPHILS % (AUTO) 2.3 % (0.0-4.0); HEMATOCRIT 39.3 % (36-52); LYMPHOCYTES # (AUTO) 2.4 K/uL (2.0-11.5); LYMPHOCYTES % (AUTO) 31.3 % (20.5-51.1); MEAN CORPUSCULAR HEMOGLOBIN 28 pg (27-31); MEAN CORPUSCULAR HGB CONC 33 g/dL (33-37); MEAN CORPUSCULAR VOLUME 85.6 fL (80-94); MONOCYTES # (AUTO) 0.5 K/uL (0.8-1.0); MONOCYTES % (AUTO) 6.8 % (1.7-9.3); NEUTROPHILS # (AUTO) 4.5 K/uL (1.8-7.7); NEUTROPHILS % (AUTO) 58.8 % (42.2-75.2); PLATELET COUNT (AUTO) 489 K/uL (140-450); RED BLOOD CELL COUNT(AUTO) 4.59 MIL/uL (4.20-6.10); RED CELL DISTRIBUTION WIDTH 14.2 % (11.6-13.7); WHITE BLOOD COUNT (AUTO) 7.7 K/uL (4.8-10.8)
[2022-07-28 08:00] VITALS: BP 129/81
[2022-07-28 08:19] LABS: ANION GAP 11.4 (8-16); CARBON DIOXIDE 28.6 mmol/L (21-32); CREATININE 0.7 mg/dL (0.6-1.3)
[2022-07-28] MEDS: SERTRALINE 50 MG TAB PO SCH (08:40)
[2022-07-28] MEDS: OLANZapine 5 MG TAB PO SCH ×2 (08:40→20:25)
--- NOTE | 2022-07-28 13:30 | NUR ---
WOUND CARE DONE ON SACRAL, RLE, AND LEFT FOOT. CHANGED COLOSTOMY BAG. TOLERATED WELL.
[2022-07-28 16:00] VITALS: BP 131/77
[2022-07-28] MEDS: HYDROcodone/APAP 5/325 MG 1 TAB TAB PO PRN (17:39)
--- NOTE | 2022-07-28 18:30 | NUR ---
COLOSTOMY BAG CHANGED FOR THE SECOND TIME DURING SHIFT.
--- NOTE | 2022-07-28 19:08 | NUR ---
BEDSIDE REPORT GIVEN TO DAIN RIVERS. PT. RESTING ON BED COMFORTABLY. NO UNTOWARD BEHAVIOR DURING SHIFT. IN STABLE CONDITION.
--- NOTE | 2022-07-28 19:09 | NUR ---
RECEIVED REPORT FROM MCKINLEY GELLER FOR CONTINUITY OF CARE. PT SLEEPING, EASILY AROUSABLE BY VERBAL STIMULI. RESPIRATIONS EVEN AND UNLABORED ON RA. NO SIGNS OF PAIN. COLOSTOMY BAG PRESENT, INTACT. SAFETY PRECAUTIONS IN PLACE. ASSUMED CARE AND 1:1 SITTER RESP. POC DISCUSSED. REPORT GIVEN TO MEDARDO BELTRAN.
[2022-07-28 20:00] VITALS: BP 137/77
--- NOTE | 2022-07-28 20:25 | NUR ---
ADMINISTERED DUE MEDS. NON-ADMIT MINIPRESS, NOT AVAILABLE IN ALL UNITS. BP 137/77. PAGED DR WILSON. AWAITING FOR CALL BACK.
[2022-07-28] MEDS: PRAZOSIN 1 MG CAP PO SCH (20:32)
--- NOTE | 2022-07-28 21:30 | NUR ---
HOLD MINIPRESS FOR TONIGHT, PER DR WILSON.
[2022-07-29] MEDS: HYDRAGUARD CREAM TP SCH ×2 (01:01→13:00)
[2022-07-29] MEDS: GAUZE TP SCH ×2 (01:01→13:00)
--- NOTE | 2022-07-29 01:03 | NUR ---
PT CLEANED AND CHANGED. WOUND CARE DONE. PT TOLERATED WELL.
[2022-07-29 04:00] VITALS: BP 130/78
--- NOTE | 2022-07-29 04:10 | NUR ---
DID MORNING CARE. PT TOLERATED WELL. NO COMPLAINTS OF PAIN. PT CALM, COOPERATIVE AND FOLLOWS DIRECTIONS. NO UNUSUAL BEHAVIOR NOTED.
--- NOTE | 2022-07-29 07:05 | NUR ---
RECEIVED REPORT FROM ICE SELLER FOR CONTINUITY OF CARE. INITIAL ASSESSMENT DONE. IV ON SL. COLOSTOMY INTACT. ON 1:1 SITTER. NO BIZARRE BEHAVIOR NOTED AT THIS TIME. CALL LIGHT KEPT WITHIN REACH. WILL CONTINUE TO MONITOR.
--- NOTE | 2022-07-29 07:07 | NUR ---
PT IN BED, SLEEPING WITH VISIBLE CHEST RISE AND FALL. EASILY AROUSABLE BY VERBAL STIMULI. NO UNNECESSARY BEHAVIOR NOTED THROUGHOUT SHIFT. 1:1 SITTER MAINTAINED. SAFETY PRECAUTIONS IN PLACE. BEDSIDE REPORT GIVEN TO MCKINLEY FERNANDEZ. PT IS STABLE.
[2022-07-29 07:11] LABS: BASOPHILS # (AUTO) 0.1 K/uL (0.00-0.22); BASOPHILS % (AUTO) 0.8 % (0.0-2.0); EOSINOPHILS # (AUTO) 0.1 K/uL (0-0.4); EOSINOPHILS % (AUTO) 1.8 % (0.0-4.0); HEMATOCRIT 39.1 % (36-52); HEMOGLOBIN 12.9 g/dL (12.0-18.0); LYMPHOCYTES # (AUTO) 2.1 K/uL (2.0-11.5); LYMPHOCYTES % (AUTO) 29.6 % (20.5-51.1); MEAN CORPUSCULAR HEMOGLOBIN 29 pg (27-31); MEAN CORPUSCULAR HGB CONC 33 g/dL (33-37); MEAN CORPUSCULAR VOLUME 86.3 fL (80-94); MONOCYTES # (AUTO) 0.5 K/uL (0.8-1.0); MONOCYTES % (AUTO) 6.6 % (1.7-9.3); NEUTROPHILS # (AUTO) 4.3 K/uL (1.8-7.7); NEUTROPHILS % (AUTO) 61.2 % (42.2-75.2); PLATELET COUNT (AUTO) 474 K/uL (140-450); RED BLOOD CELL COUNT(AUTO) 4.53 MIL/uL (4.20-6.10); RED CELL DISTRIBUTION WIDTH 14.4 % (11.6-13.7); WHITE BLOOD COUNT (AUTO) 7.1 K/uL (4.8-10.8)
[2022-07-29 07:52] LABS: ANION GAP 12.3 (8-16); CARBON DIOXIDE 28.6 mmol/L (21-32); CREATININE 0.5 mg/dL (0.6-1.3); POTASSIUM 3.9 mmol/L (3.5-5.1)
[2022-07-29 08:00] VITALS: BP 163/81
[2022-07-29] MEDS: OLANZapine 5 MG TAB PO SCH ×2 (10:13→20:49)
[2022-07-29] MEDS: SERTRALINE 50 MG TAB PO SCH (10:13)
--- NOTE | 2022-07-29 10:13 | NUR ---
SCHEDULED PO MEDICATIONS GIVEN. TOLERATING WELL.
[2022-07-29] MEDS ORDERED: MAG SULF 2000 MG/WATER PREMIX 50 ML IV SCH (12:49)
--- NOTE | 2022-07-29 12:49 | NUR ---
DR. MEYER NOTIFIED REGARDING PT MAGNESIUM 1.7. RECEIVED NEW ORDER MAG RIDER 2 GM IV ONCE AND CHECKED MAGNESIUM LEVEL TOMORROW.
[2022-07-29] MEDS: THERAHONEY GEL 42.5 GM TP SCH (13:00)
--- NOTE | 2022-07-29 13:04 | NUR ---
ANCEF IV ABT WAS GIVEN BY NICOL BATRES. TOLERATING WELL.
--- NOTE | 2022-07-29 14:54 | NUR ---
WOUND CARE DONE TO BLE, SACRAL AND LT TOES. TOLERATED WELL.
--- NOTE | 2022-07-29 15:21 | NUR ---
MAGNESIUM IV ONCE, GIVEN BY NICOL BATRES. TOLERATING WELL.
[2022-07-29 16:00] VITALS: BP 142/85
--- NOTE | 2022-07-29 19:13 | NUR ---
REPORT GIVEN TO INGOT CAR OPERATORNATALIA GAUTAM FOR CONTINUITY OF CARE. REMAINS STABLE.
--- NOTE | 2022-07-29 19:14 | NUR ---
RECEIVED REPORT FROM MCKINLEY FERNANDEZ FOR CONTINUITY OF CARE. PT SLEEPING, EASILY AROUSABLE BY VERBAL STIMULI. RESPIRATIONS EVEN AND UNLABORED ON RA. COLOSTOMY BAG, INTACT. POC DISCUSSED. REPORT GIVEN TO MEDARDO BELTRAN. WITH 1:1 SITTER. SAFETY PRECAUTIONS IN PLACE.
[2022-07-29 20:00] VITALS: BP 127/76
--- NOTE | 2022-07-29 20:00 | NUR ---
Patient's Plan of Care was discussed and reviewed with DAIN SEN:
[2022-07-29] MEDS: PRAZOSIN 1 MG CAP PO SCH (20:49)
--- NOTE | 2022-07-29 20:49 | NUR ---
DUE MEDS ADMINISTERED. ATTEMPTED TO TALK TO PT, PT REFUSED TO TALK TOO MUCH. PT STATED "I JUST WANT TO SLEEP." LEFT PT IN COMFORTABLE POSITION. 1:[address]
[2022-07-29] MEDS: HYDROcodone/APAP 5/325 MG 1 TAB TAB PO PRN (23:48)
[2022-07-30] MEDS: HYDRAGUARD CREAM TP SCH ×2 (00:35→13:57)
[2022-07-30] MEDS: GAUZE TP SCH ×2 (00:35→13:57)
--- NOTE | 2022-07-30 00:35 | NUR ---
WOUND CARE DONE. PT TOLERATED WELL.
[2022-07-30 04:00] VITALS: BP 133/79
--- NOTE | 2022-07-30 05:52 | NUR ---
DID MORNING CARE. PT TOLERATED WELL. PT CALM, COOPERATIVE, FOLLOWS INSTRUCTIONS. PT WENT BACK TO SLEEP. NO DISCOMFORT NOTED.
--- NOTE | 2022-07-30 07:00 | NUR ---
ASSUMED CONTINUITY OF CARE. PT. SLEEPING WELL AT THIS TIME. NO SIGNS OF ACUTE DISTRESS NOTED. KEEP ENVIRONMENT SAFE. WILL MONITOR CLOSELY 1:1 FOR SUICIDAL PREVENTION.
--- NOTE | 2022-07-30 07:03 | NUR ---
GAVE BEDSIDE REPORT TO MCKINLEY GELLER. 1:1 SITTER MAINTAINED. NO UNUSUAL EVENTS THROUGHOUT SHIFT NOTED. PT IS STABLE.
[2022-07-30 07:21] LABS: BASOPHILS % (AUTO) 0.5 % (0.0-2.0); EOSINOPHILS # (AUTO) 0.1 K/uL (0-0.4); EOSINOPHILS % (AUTO) 1.4 % (0.0-4.0); HEMATOCRIT 35.2 % (36-52); HEMOGLOBIN 11.6 g/dL (12.0-18.0); LYMPHOCYTES # (AUTO) 2.6 K/uL (2.0-11.5); LYMPHOCYTES % (AUTO) 36.1 % (20.5-51.1); MEAN CORPUSCULAR HEMOGLOBIN 29 pg (27-31); MEAN CORPUSCULAR HGB CONC 33 g/dL (33-37); MEAN CORPUSCULAR VOLUME 86.3 fL (80-94); MONOCYTES # (AUTO) 0.5 K/uL (0.8-1.0); MONOCYTES % (AUTO) 6.7 % (1.7-9.3); NEUTROPHILS # (AUTO) 3.9 K/uL (1.8-7.7); NEUTROPHILS % (AUTO) 55.3 % (42.2-75.2); PLATELET COUNT (AUTO) 416 K/uL (140-450); RED BLOOD CELL COUNT(AUTO) 4.07 MIL/uL (4.20-6.10); RED CELL DISTRIBUTION WIDTH 14.2 % (11.6-13.7); WHITE BLOOD COUNT (AUTO) 7.1 K/uL (4.8-10.8)
[2022-07-30 08:00] VITALS: BP 126/80
--- NOTE | 2022-07-30 08:17 | NUR ---
REFUSED TO EAT BREAKFAST AT THIS TIME. PT. BACK TO SLEEP. CONTINUE MONITORING CLOSELY 1:1.
--- NOTE | 2022-07-30 08:30 | NUR ---
STARTED TO EAT BREAKFAST. CALM AND COOPERATIVE. NO SUICIDAL THOUGHTS OBSERVED.
[2022-07-30] MEDS: OLANZapine 5 MG TAB PO SCH ×2 (08:34→20:47)
[2022-07-30] MEDS: SERTRALINE 50 MG TAB PO SCH (08:34)
--- NOTE | 2022-07-30 09:35 | NUR ---
BED LINENS CHANGED, COLOSTOMY BAG CHANGED, DIAPER CHANGED AND ABHIJEET-CARE/SKIN CARE WITH HYDRAGUARD PROVIDED. KEEP PT. IN COMFORTABLE POSITION.
[2022-07-30 12:00] VITALS: BP 112/61
--- NOTE | 2022-07-30 12:22 | NUR ---
SERVED LUNCH TRAY. CALM AND COOPERATIVE. STARTED TO EAT LUNCH.
[2022-07-30] MEDS: THERAHONEY GEL 42.5 GM TP SCH (13:57)
--- NOTE | 2022-07-30 14:00 | NUR ---
WOUND CARE PROVIDED ON SACRAL, RLE, AND LEFT BIG TOE/2ND TOE/3RD TOE. CHANGE DIAPER AND ABHIJEET-CARE ALSO PROVIDED.
[2022-07-30] MEDS: HYDROcodone/APAP 5/325 MG 1 TAB TAB PO PRN (15:09)
--- NOTE | 2022-07-30 16:11 | NUR ---
07/30/22 RD FOLLOW UP COMPLETED PLEASE REFER TO NUTRITION ASSESSMENT UNDER CARE ACTIVITY FOR ESTIMATED NUTRITIONAL NEEDS. 1. CONTINUE REGULAR DIET WITH ENSURE 1/DAY TOLERATED - ENSURE PROVIDES 350KCAL AND 20G PROTEIN DAILY 2. MONITOR PO INTAKE AND NUTRITION RELATED LAB VALUES 3. RD TO FOLLOW-UP 7 DAYS, LOW RISK REVIEWED BY JAYNE ANDREW RD
--- NOTE | 2022-07-30 18:20 | NUR ---
CHANGED COLOSTOMY BAG. STOMA CARE PROVIDED. TOLERATED WELL. MODERATE AMOUNT OF BROWN STOOL COLLECTED.
--- NOTE | 2022-07-30 19:09 | NUR ---
BEDSIDE REPORT GIVEN TO SARAH BETH RIVERS. PT. SLEEPING IN COMFORTABLE POSITION. NO DISCOMFORT NOTED. IN STABLE CONDITION.
--- NOTE | 2022-07-30 19:45 | NUR ---
RECEIVED REPORT FROM DAY SHIFT NURSE FOR CONTINUITY OF CARE. PT IS ASLEEP AT THIS TIME. NO SIGNS OF DISTRESS NOTED. NORCO 5/325 WAS GIVEN PRN AT 1509. IV SITE TO LEFT AND RIGHT FOREARM 22 AND 20 GAUGE. INTACT AND PATENT. WILL CONTINUE WITH 1:1 MONITORING THROUGHOUT SHIFT.
[2022-07-30] MEDS: PRAZOSIN 1 MG CAP PO SCH (20:47)
[2022-07-30] MEDS: HYDROcodone/APAP 10/325 MG 1 TAB TAB PO PRN (21:18)
--- NOTE | 2022-07-30 22:06 | NUR ---
SCHEDULED MEDICATIONS ADMINISTERED WITH NO COMPLICATIONS. PT COMPLAINT OF 10/10 PAIN IN LOWER EXTREMITIES. NORCO 10/325 PRN WAS ADMINISTERED PER MD ORDER. PT TOLERATED WELL. WILL CONTINUE TO MONITOR.
--- NOTE | 2022-07-30 23:06 | NUR ---
PT MOTHER CALLED FOR UPDATE ON PT. UPDATED MOTHER ON PT'S CURRENT STATUS AND POC.
[2022-07-31] VITALS: BP 137/69
--- NOTE | 2022-07-31 00:08 | NUR ---
PT ASLEEP AT THIS TIME. NO DISTRESS NOTED, WILL CONTINUE TO MONITOR THE PT.
[2022-07-31] MEDS: HYDRAGUARD CREAM TP SCH ×2 (01:08→14:21)
[2022-07-31] MEDS: GAUZE TP SCH ×2 (01:08→14:21)
--- NOTE | 2022-07-31 02:00 | NUR ---
WOUND CARE PROVIDED. DRESSINGS TO SACRAL AND R LE CHANGED AND DRY. WILL CONTINUE TO MONITOR.
--- NOTE | 2022-07-31 05:08 | NUR ---
CHANGED PT SHEETS, GOWN, DIAPER. ABHIJEET CARE PERFORMED. TOTAL INTAKE = 990ML. PT VOIDED TWICE. ONE BM. COLOSTOMY BAG INTACT. WILL CONTINUE TO MONITOR.
--- NOTE | 2022-07-31 06:02 | NUR ---
PT SLEPT WELL THROUGHOUT SHIFT. NO COMPLAINTS OF PAIN, NO ABNORMAL BEHAVIORS, AND NO ACUTE DISTRESS NOTED. WILL ENDORSE TO DAY SHIFT NURSE FOR CONTINUITY OF CARE.
--- NOTE | 2022-07-31 07:05 | NUR ---
ASSUMED CONTINUITY OF CARE. INITIAL ASSESSMENT DONE. PT. SLEEPING AT THIS TIME. NO DISCOMFORT NOTED. CLOSELY MONITORED BY A SITTER 1:1 FOR SUICIDAL PREVENTION.
--- NOTE | 2022-07-31 07:42 | NUR ---
Patient's Plan of Care was discussed and reviewed with DIRECTOR CARDIAC:
[2022-07-31 08:00] VITALS: BP 131/77
[2022-07-31] MEDS: OLANZapine 5 MG TAB PO SCH ×2 (08:49→20:47)
[2022-07-31] MEDS: SERTRALINE 50 MG TAB PO SCH (08:49)
--- NOTE | 2022-07-31 14:15 | NUR ---
WOUND CARE DONE ON SACRAL, RLE, AND LEFT TOES. ABHIJEET-CARE PROVIDED WELL. TOLERATED WELL.
--- NOTE | 2022-07-31 14:17 | NUR ---
RECEIVED ORDER FOR SNF PLACEMENT. FAXED TO THE FOLLOWING: [facility], [facility], [facility], [facility], [facility], [facility], [facility], [facility], [facility], AND 10 OTHER SNF. WILL FOLLOW UP IF THERE IS ANY ACCEPTING FACILITIES. Addendum: 07/31/22 at 1629 by JUNIOR MCKEON CM RECEIVED CALL FROM NURSE GELLER WHO SAID MOTHER BILLY IS ABLE TO RECEIVE PATIENT AT [facility] IF WE PAY FOR TRANSPORTATION. [facility] UP [facility] WITH [facility] TRANSPORT FOR 1800 OIL SPRAYER TIME. BUT WHEN I CALLED MOTHER BILLY TO INFORM HER OF PATIENTS OIL SPRAYER TIME TO GO HOME SHE STATED THAT SHE NEVER TOLD ANYONE THAT SHE CAN TAKE HER SON BACK. SHE SAID [facility] WAS NOT DISABLE FRIENDLY AND IS STILL SCARRED FROM HIS LAST EPISODE, AND I INFORMED HER THAT WE HAVE NOT BEEN ABLE TO FIND A SNF OR HLOC THAT IS WILLING TO ACCEPT HIM IF SHE CAN PLEASE FIND A CONTACT FOR HER DAUGHTER SO WE CONTACT HER AND SEE IF SHE ABLE TO HOUSE PATIENT CAUSE WE ARE NOT A HOUSING FACILITY WE ARE A HOSPITAL AND HE CANT STAY HERE. CANCELED [facility] TRANSPORT AND INFORMED NURSE AND CASE MANAGEMENT OF THE ABOVE INFORMATION.
[2022-07-31] MEDS: THERAHONEY GEL 42.5 GM TP SCH (14:22)
--- NOTE | 2022-07-31 14:56 | NUR ---
CALLED PT. MOTHER BILLY AGUILAR AT AND INFORMED HER THAT PER NURSE'S ASSISTANT JENNIFER PT. WILL BE D/C BACK TO HER CARE. ACCORDING TO PT. MOTHER -BILLY, SHE DON'T HAVE TRANSPORT AND [facility]SPORTATION PT. MOTHER WILL RECEIVE PT.. TELEPHONE CALL WAS PROVIDED TO PT. TO TALK TO HIS MOTHER. INFORMED CHARGE NURSE INNA BAIRD AND NURSE'S ASSISTANT SHYAM THAT PT. MOTHER WILL RECEIVE PT.. ACCORDING TO SHYAM TRANSPORTATION WILL ARRIVE IN 2 HOURS.
--- NOTE | 2022-07-31 15:47 | NUR ---
LAB MANAGER -SHYAM SPOKE TO PT. AT BEDSIDE REGARDING D/C.
--- NOTE | 2022-07-31 15:54 | NUR ---
WOUND CARE RE-EVALUATION NOTE: PT. WOUNDS RESPONDING TO CURRENT TREATMENT. SACRALCOCCYX WOUND BED RESURFACING. POC DISCUSSED WITH PRIMARY NURSE, PT IS PENDING DISCHARGE. -SACRALCOCCYX PI STAGE 3 4X4X0.1CM WOUND BED 100% PALE PINK, MOIST, NO ODOR, ABHIJEET-WOUND SKIN THIN TO BONE, EASILY TO BREAKS. -RIGHT LOWER LEG SKIN TEARS MEDIAL 4X3X0.1CM AND MEDIAL LEG 3X2X0.1CM,WOUND BEDS PINK, MOIST ,NO ODOR, ABHIJEET-WOUND SKIN OLD SCARS -LEFT FOOT MULTIPLE TOES DRY STABLE SCABS WITH LARGEST LEFT 2ND TOE 4X1CM
[2022-07-31 16:00] VITALS: BP 135/92
[2022-07-31] MEDS ORDERED: OLAN5TAB65 PO (17:03)
[2022-07-31] MEDS ORDERED: SERT-515 PO (17:03)
[2022-07-31] MEDS ORDERED: CEPH-588 PO (17:11)
--- NOTE | 2022-07-31 19:20 | NUR ---
REPORT GIVEN TO DAIN RIVERS. IN STABLE CONDITION.
--- NOTE | 2022-07-31 19:21 | NUR ---
RECEIVED REPORT FROM DAY SHIFT NURSE DUYEN FOR CONTINUITY OF CARE. PT SLEEPING, EASILY AROUSABLE BY VERBAL STIMULI. RESPIRATIONS EVEN AND UNLABORED ON RA. NO DISTRESS NOTED. POC DISCUSSED. ASSUMED CARE AND ASSIGNED PT'S 1:1 SITTER. REPORT GIVEN TO MEDARDO DE LA O. SAFETY PRECAUTIONS IN PLACE.
[2022-07-31 20:00] VITALS: BP 111/79
[2022-07-31] MEDS: PRAZOSIN 1 MG CAP PO SCH (20:47)
--- NOTE | 2022-07-31 20:48 | NUR ---
ADMINISTERED DUE MEDS. PT COMPLIANT, TOOK HIS MEDS.
--- NOTE | 2022-07-31 21:36 | NUR ---
PT CLEANED AND CHANGED. PT COMMUNICATING APPROPRIATELY. FOLLOWED INSTRUCTIONS AND HELPED WITH THE CARE. WOUND CARE DONE. DRESSING CHANGED. PT REQUESTED FOR SNACKS AFTER.
[2022-08-01] MEDS: HYDRAGUARD CREAM TP SCH ×2 (01:00→13:07)
[2022-08-01] MEDS: GAUZE TP SCH ×2 (01:00→13:07)
[2022-08-01 04:00] VITALS: BP 118/82
--- NOTE | 2022-08-01 05:52 | NUR ---
OFFERED MORNING CARE. PT REFUSED. PT STATED "I'M TOO TIRED". PT COVERED HIS HEAD WITH BLANKET AND DIDN'T WANT TO COMMUNICATE.
--- NOTE | 2022-08-01 07:22 | NUR ---
ENDORSED PT TO NURSE BUCHANAN FOR CONTINUITY OF CARE. 1:1 SITTER MAINTAINED THROUGHOUT SHIFT. PT IS STABLE.
[2022-08-01 08:04] VITALS: BP 144/86
[2022-08-01] MEDS: SERTRALINE 50 MG TAB PO SCH (08:35)
[2022-08-01] MEDS: OLANZapine 5 MG TAB PO SCH ×2 (08:35→20:55)
--- NOTE | 2022-08-01 10:22 | NUR ---
Patient mother request for update, she says she missed 2 calls from the hospital. Notified patient is awake and at times laughing, at other times napping. Request to have pain medication for lower extremity pain.
--- NOTE | 2022-08-01 10:42 | NUR ---
Spoke with case management team who had asked patient to be picked up by mother which is not known to engineering writer before discussing with the patient's mother earlier. enrollment manager advises if mother calls back to remind her, otherwise other intervention with police will be taken.
[2022-08-01] MEDS: THERAHONEY GEL 42.5 GM TP SCH (13:07)
--- NOTE | 2022-08-01 13:51 | NUR ---
10:30AM: SPOKE TO PTS MOTHER BILLY AND SPOKE TO BILLY ON BARRIERS IN IDENTIFYING PLACEMENT. REVIEWED FACILITIES AND STEPS TAKEN TO FIND PLACEMENT WITH NO ACCEPTING FACILITIES. INFORMED BILLY WE HAVE EXHAUSTED ALL PLACEMENT RESOURCES. BILLY VERBALIZED UNDERSTANDING. SPOKE WITH BILLY ABOUT PTS REQUEST TO RESIDE WITH SISTERS, BILLY REPORTS NOT HAVING THEIR TELEPHONE NUMBERS TO COORDINATE, HOWEVER, REPORTED SHE WOULD GO TO THEIR RESIDENCE TO SPEAK TO THEM. BILLY REPORTS BARRIERS IN GETTING APPROPRIATE SUPPLIES AND REQUESTED THAT INSURANCE PROVIDE HER WITH SUPPLIES NEEDED. ENSURED HER THAT CM WOULD BE N CONTACT WITH INSURANCE W/ MAKE SURE PT WS RECEIVING DIAPERS/CHUCKS IN THE CORRECT SIZE AND INQUIRE ON HOSPITAL BED. BILLY REQUESTING RETURN PHONE CALL AFTER 1330 FOR UPDATE. 1330: OUTREACHED TO BILLY TO INQUIRE ON UPDATE OF DC PLAN. BILLY REPORTS OBTAINING PTS SISTERS PHONE NUMBER AND LEAVING MESSAGE WITH NO RETURN PHONE CALL. SW ENCOURAGED BILLY TO MAKE ARRANGEMENTS WITH SISTER WHEN PT RETURNS HOME PT IS TO BE DC'D. REMINDED BILLY SHE IS RESPONSIBLE [employer] FOR PT HE RESIDES WITH HER AND IS RESIDENT SHE IS. BILLY REPORTS SHE IS SPEAKING TO HER BOSS ON PTS RETURN HOME. BILLY REQUESTING A RETURN PHONE CALL IN ONE HOUR. 13:45 SPOKE W/ JAHAIRA GUTIERREZ CM AND PROVIDED UPDATE. BRENDA REPORTS [facility] [phone] PROVIDES PT WITH SUPPLIES, DIAPERS/CHUCKS, OSTOMY SUPPLIES. BRENDA UNABLE TO FIND VENDOR FOR BED AND MATTRESS, HOWEVER, REPORTS IF MOTHER CAN IDENTIFY VENDOR, BED/MATTRESS CAN BE REPLACED IF OVER 5 YRS OLD. Addendum: 08/01/22 at 1526 by Osmar RIVERS 1444: OUTREACHED TO PATIENTS MOTHER BILLY TO FINALIZE DC PLAN , HOWEVER, A MALE ANSWERED PHONE. MALE REPORTS PT CURRENTLY SPEAKING WITH ERISA ATTORNEY/BOSS ABOUT PT RETURNING HOME. GRZEGORZ REQUESTED BILLY RETURN PHONE CALL [facility]. 1525: OUTREACHED TO BILLY GRZEGORZ HAS NOT RECEIVED A RETURN PHONE CALL, HOWEVER, BILLY DID NOT ANSWER. UNABLE TO LEAVE MESSAGE VM IS FULL. Addendum: 08/01/22 at 1600 by Osmar Rausch 1349: THIRD ATTEMPT MADE TO CONTACT BILLY, HOWEVER, NO ANSWER. 1358: FOURTH ATTEMPT MADE TO CONTACT, BILLY, HOWEVER NO ANSWER. Addendum: 08/01/22 at 1605 by Osmar Rausch BILLY CONTINUES NOT TO ANSWER PHONE, THEREFORE [facility] WAS CONTACTED TO CONDUCT A WELLNESS CHECK. SPOKE WITH GUERRERO METAL INSPECTOR, , WHO REPORTS THEY WILL HAVE POLICE MAKE CONTACT. PROVIDED DISPATCHER WITH CALL BACK INFORMATION
[2022-08-01] MEDS ORDERED: HYDROcodone/APAP 10/325 MG 1 TAB TAB PO PRN (15:00)
[2022-08-01] MEDS ORDERED: HYDROcodone/APAP 5/325 MG 1 TAB TAB PO PRN (15:05)
[2022-08-01 16:00] VITALS: BP 123/84
--- NOTE | 2022-08-01 19:08 | NUR ---
PATIENT IS READY FOR DISCHARGE. INTACT 22 GAUGE AND 20 GAUGE INTRAVENOUS CATHETER TIPS UPON REMOVAL FROM LEFT FOREARM AND RIGHT FOREARM, RESPECTIVELY. IDENTIFICATION BRACELET REMOVAL. WOUND CARE PICTURES COMPLETE. COPY OF DISCHARGE INSTRUCTIONS WITH SIGNATURE PRESENT. NO BELONGINGS PRESENT. PLACE CLEAN PAIR OF STREET CLOTHING AND DIAPER. EMPTY COLOSTOMY BAG. PATIENT GIVEN DINNER MEAL. PENDING RIDE TO HOME FROM MOTHER AT THIS TIME.
--- NOTE | 2022-08-01 19:31 | NUR ---
HANDOFF WITH NIGHT TEAM RNVIANCA.
[2022-08-01] MEDS: PRAZOSIN 1 MG CAP PO SCH (20:54)
--- NOTE | 2022-08-01 20:54 | NUR ---
ADMINISTERED SCHEDULED DUE MEDICATIONS.
--- NOTE | 2022-08-01 20:55 | NUR ---
PATIENT AWAKE ALERT ORIENTED. NO S/S OF RESPIRATORY DISTRESS. ON ROOM AIR. NO COMPLAINTS OF PAIN. CALL LIGHT WITHIN REACH. NEEDS ATTENDED TO. BED WHEELS LOCKED.
--- NOTE | 2022-08-01 21:45 | NUR ---
PATIENT MOM CALLED ASKING IF HIS SON IS GOING HOME TODAY. RN ASKED MOM IF SHE COME PICK HIM UP. MOM STATED "I SPOKE TO THE HOSTLER HELPER AND SHE TOLD ME TO ARRANGE TRANSPORTATION FOR MY SON". RN REPLIED HE MIGHT BE GOING HOME TOMORROW CAUSE THE TRANSPORTATION OFFICE IS NOW CLOSED. MOM SAID OK.
[2022-08-02] VITALS: BP 121/83
[2022-08-02] MEDS: GAUZE TP SCH (00:21)
[2022-08-02] MEDS: HYDRAGUARD CREAM TP SCH (00:23)
--- NOTE | 2022-08-02 06:04 | NUR ---
COLOSTOMY BAG CHANGED.
--- NOTE | 2022-08-02 07:15 | NUR ---
RECEIVED REPORT FROM TRUCK CRANE OPERATOR FOR CONTINUITY OF CARE. INITIAL ASSESSMENT DONE. ASLEEP AT THIS TIME. COLOSTOMY INTACT. IV SITE INTACT. PT FOR DISCHARGED AWAITING FOR TRANSPORTATION. CALL LIGHT KEPT WITHIN REACH. WILL CONTINUE TO MONITOR.
--- NOTE | 2022-08-02 07:17 | NUR ---
PATIENT STABLE. GAVE REPORT TO MORNING SHIFT NURSE FOR CONTINUITY OF CARE.
[2022-08-02 08:00] VITALS: BP 124/73
[2022-08-02] MEDS: SERTRALINE 50 MG TAB PO SCH (08:23)
[2022-08-02] MEDS: OLANZapine 5 MG TAB PO SCH (08:23)
--- NOTE | 2022-08-02 08:23 | NUR ---
ADMINISTERED SCHEDULED MEDICATIONS. TOLERATED WELL.
--- NOTE | 2022-08-02 09:30 | NUR ---
WOUND CARE DONE, COLOSTOMY BAG CHANGE. TOLERATED WELL.
--- NOTE | 2022-08-02 13:15 | NUR ---
PT LEFT. DISCHARGE TO HOME. TRANSPORTED BY [facility] PER GURNEY. ACCOMPANIED BY 2 MALE TRANSPORTER. ALERT AND ORIENTED X4. RESP. EVEN AND UNLABORED. ID BAND AND IV REMOVED. COLOSTOMY BAG INTACT. DISCHARGE PAPERWORKS DISCUSS AND SIGNED BY PT. PERSONAL BELONGINGS TAKEN. NO C/O PAIN OR DISCOMFORT. REMAINS STABLE.
--- NOTE | 2022-08-06 11:22 | NUR ---
CALLED [facility] AND SPOKE WITH THEA WHO WAS ABLE TO HELP ME SCHEDUALE AN APPOINTMENT FOR 08/20/2022 AT 1130. CALLED PATIENTS MOM AND INFORMED HER OF THE ABOVE INFORMATION EVEN PROVIDED [facility] TRANSPORTATION NUMBER BUT SHE SAID THAT SHE WASN'T GOING TO TAKE THE PATIENT TO THE APPOINTMENT.
== END 2022-08-02 13:19 | disposition home or self-care (01) | DRG 720 ==
LOC: MED 17:30 → MTU 23:43
PROVIDERS: ADMIT Hospitalist; ATTEND Hospitalist
DX: A41.9 Sepsis, unspecified organism (principal); G93.41 Metabolic encephalopathy; E44.1 Mild protein-calorie malnutrition; R45.851 Suicidal ideations; G82.20 Paraplegia, unspecified; L03.317 Cellulitis of buttock; Z20.822 Contact with and (suspected) exposure to COVID-19; L03.116 Cellulitis of left lower limb; L97.529 Non-pressure chronic ulcer of other part of left foot with unspecified severity; F43.10 Post-traumatic stress disorder, unspecified; F23 Brief psychotic disorder; F32.9 Major depressive disorder, single episode, unspecified; Z68.21 Body mass index [BMI] 21.0-21.9, adult
CPT/HCPCS: 36415; 80048; 80053; 80202; 80305; 83605; 83735; 85025; 87081; 87635-QW; 93005; 96365; 96366; 96375; 99291; G0480; G0482; J0690; J1200; J1630; J2060; J3370; J3372; J3475; J7060

== ENCOUNTER 2022-12-26 13:48 | Inpatient (IN) | payer OTHER ==
[~2022-12-26] VITALS: Ht 175.3 cm; Wt 78.0 kg
[~2022-12-26 13:48] MED LIST changes: -ACET-9525 PO; -BACL10TA4 PO; +CEPH-588 PO; -GABA100C PO; -METH-1681 PO; +OLAN5TAB65 PO; +SERT-515 PO
[2022-12-26 13:51] VITALS: BP 132/88; PULSE 112; RESP 17; TEMP 97.4; O2SAT 98
[2022-12-26] MEDS ORDERED: NACL 0.9% 1,000 ML IV ONE (14:20)
[2022-12-26] MEDS ORDERED: ONDANSETRON 4 MG/2 ML VIAL IVP ONE (14:35)
[2022-12-26] MEDS ORDERED: MORPHINE SULFATE 4 MG/ML SYR IVP ONE (14:35)
[2022-12-26 15:10] LABS: BASOPHILS % (AUTO) 0.1 % (0.0-2.0); HEMATOCRIT 45.6 % (36-52); LYMPHOCYTES # (AUTO) 1.2 K/uL (2.0-11.5); MEAN CORPUSCULAR HEMOGLOBIN 27 pg (27-31); MEAN CORPUSCULAR HGB CONC 33 g/dL (33-37); MEAN CORPUSCULAR VOLUME 82.7 fL (80-94); MONOCYTES # (AUTO) 0.8 K/uL (0.8-1.0); MONOCYTES % (AUTO) 6.8 % (1.7-9.3); NEUTROPHILS # (AUTO) 9.9 K/uL (1.8-7.7); NEUTROPHILS % (AUTO) 83.1 % (42.2-75.2); PLATELET COUNT (AUTO) 342 K/uL (140-450); RED BLOOD CELL COUNT(AUTO) 5.51 MIL/uL (4.20-6.10); RED CELL DISTRIBUTION WIDTH 16.3 % (11.6-13.7); WHITE BLOOD COUNT (AUTO) 11.9 K/uL (4.8-10.8)
[2022-12-26 15:30] LABS: CREATINE KINASE, TOTAL 419 U/L (39-308); MAGNESIUM 1.7 mg/dL (1.8-2.4); PHOSPHORUS 3.6 mg/dL (2.5-4.9)
[2022-12-26 15:34] LABS: ANION GAP 27.1 (8-16); CALCIUM 8.7 mg/dL (8.5-10.1); CARBON DIOXIDE 13.1 mmol/L (21-32); CREATININE 0.7 mg/dL (0.6-1.3); LACTIC ACID 1.1 mmol/L (0.4-2.0); POTASSIUM 3.2 mmol/L (3.5-5.1); TOTAL BILIRUBIN 0.8 mg/dL (0.0-1.0); TOTAL PROTEIN, SERUM 7.8 g/dL (6.4-8.2)
[2022-12-26] MEDS ORDERED: ALUMINUM HYD/MAG/SIMETHICONE 30 ML UDC ONE (15:37)
[2022-12-26] MEDS ORDERED: ALUMINUM HYD/MAG/SIMETHICONE 30 ML UDC PO ONE (15:40)
[2022-12-26 15:45] LABS: APPEARANCE,URINE CLEAR (CLEAR); BILIRUBIN,URINE 1+ (NEGATIVE); BLOOD, URINE TRACE-I (NEGATIVE); COLOR,URINE YELLOW (YELLOW); LEUKOCYTE ESTERASE ,URINE NEGATIVE (NEGATIVE); NITRITE, URINE NEGATIVE (NEGATIVE); PROTEIN,URINE TRACE (NEGATIVE); UGLUCOSE NEGATIVE (NEGATIVE); UROBILINOGEN,URINE 0.2 EU/dL (0.2 - 1)
[2022-12-26] MEDS ORDERED: POTASSIUM CHLORIDE 10 MEQ TABER PO ONE (15:45)
[2022-12-26] MEDS ORDERED: MAGNESIUM CHLORIDE 64 MG TABEC PO SCH (15:45)
[2022-12-26 16:05] LABS: ICTOTEST NEGATIVE (NEGATIVE); RBC,URINE 0-5 /HPF (0-5)
[2022-12-26 16:06] LABS: BACTERIA,URINE FEW /HPF (None Seen); MUCUS,URINE None Seen /LPF (None Seen); SQUAMOUS EPITHELIAL CELL,UR 4-10 (MOD) /LPF (0-3 (FEW)); TRICHOMONAS,URINE None Seen /HPF (None Seen); WBC,URINE 0-5 /HPF (0-5); WHITE BLOOD CELL CASTS,URINE None Seen /LPF (None Seen); YEAST,URINE None Seen /HPF (None Seen)
[2022-12-26 16:24] LABS: ACETAMINOPHEN < 0.5 ug/ml (10-30); SALICYLATE < 2.8 mg/dL (2.8-20.0)
[2022-12-26 16:25] LABS: ACETONE, SERUM Negative (NEGATIVE); ALCOHOL, BLOOD < 3 mg/dL (<10)
[2022-12-26] MEDS ORDERED: DEXT 5% /NACL 0.9% 1,000 ML IV ONE (16:40)
[2022-12-26] MEDS ORDERED: KETOROLAC 15 MG/ML VIAL IVP ONE (16:45)
[2022-12-26] MEDS ORDERED: MAGNESIUM OXIDE 400 MG TAB PO PRN (17:05)
[2022-12-26] MEDS ORDERED: MAG SULF 2000 MG/WATER PREMIX 50 ML IV PRN (17:05)
[2022-12-26] MEDS: NACL 0.9% 1,000 ML IV SCH ×2 (17:05→21:47)
[2022-12-26] MEDS ORDERED: KCL 20 MEQ IN 100 mL PREMIX 200 ML IV PRN (17:05)
[2022-12-26] MEDS ORDERED: ACETAMINOPHEN 325 MG TAB PO PRN (17:05)
[2022-12-26] MEDS: ONDANSETRON 4 MG/2 ML VIAL IVP PRN (19:33)
[2022-12-26] MEDS: METOCLOPRAMIDE 10 MG/2 ML INJ VIAL IVP PRN (19:44)
[2022-12-26 21:30] VITALS: PULSE 106; PULSE 92; RESP 18; O2SAT 94; O2SAT 98
[2022-12-26 21:51] VITALS: PULSE 110
[2022-12-27] VITALS: BP 115/65; PULSE 87; PULSE 92; RESP 18; TEMP 97.4; O2SAT 97
[2022-12-27] MEDS: HYDROcodone/APAP 5/325 MG 1 TAB TAB PO PRN ×3 (00:26→12:51)
[2022-12-27] MEDS: ONDANSETRON 4 MG/2 ML VIAL IVP PRN (00:28)
[2022-12-27] MEDS: NACL 0.9% 1,000 ML IV SCH ×4 (01:05→21:33)
[2022-12-27 04:00] VITALS: BP 122/67; PULSE 61; PULSE 95; RESP 18; TEMP 97.6; O2SAT 98
[2022-12-27 05:24] LABS: BASOPHILS % (AUTO) 0.2 % (0.0-2.0); EOSINOPHILS % (AUTO) 0.1 % (0.0-4.0); LYMPHOCYTES # (AUTO) 2.2 K/uL (2.0-11.5); LYMPHOCYTES % (AUTO) 24.1 % (20.5-51.1); MEAN CORPUSCULAR HEMOGLOBIN 27 pg (27-31); MEAN CORPUSCULAR HGB CONC 33 g/dL (33-37); MEAN CORPUSCULAR VOLUME 82.4 fL (80-94); MONOCYTES # (AUTO) 0.8 K/uL (0.8-1.0); MONOCYTES % (AUTO) 9.1 % (1.7-9.3); NEUTROPHILS # (AUTO) 6.1 K/uL (1.8-7.7); NEUTROPHILS % (AUTO) 66.5 % (42.2-75.2); PLATELET COUNT (AUTO) 294 K/uL (140-450); RED BLOOD CELL COUNT(AUTO) 4.73 MIL/uL (4.20-6.10); RED CELL DISTRIBUTION WIDTH 15.9 % (11.6-13.7); WHITE BLOOD COUNT (AUTO) 9.1 K/uL (4.8-10.8)
[2022-12-27 05:25] LABS: ANION GAP 12.9 (8-16); CALCIUM 8.2 mg/dL (8.5-10.1); CARBON DIOXIDE 22.8 mmol/L (21-32); CREATININE 0.7 mg/dL (0.6-1.3); POTASSIUM 3.7 mmol/L (3.5-5.1)
[2022-12-27 05:33] LABS: MAGNESIUM 1.9 mg/dL (1.8-2.4); PHOSPHORUS 3.5 mg/dL (2.5-4.9)
[2022-12-27 08:00] VITALS: BP 110/51; PULSE 53; RESP 20; TEMP 97.6; O2SAT 100
[2022-12-27 12:00] VITALS: BP 123/65; PULSE 69; PULSE 91; RESP 20; TEMP 98.1; O2SAT 98
[2022-12-27] MEDS: METOCLOPRAMIDE 10 MG/2 ML INJ VIAL IVP PRN ×2 (12:51→21:28)
[2022-12-27 16:00] VITALS: BP 104/52; PULSE 60; PULSE 66; RESP 20; TEMP 97.6; O2SAT 99
[2022-12-27 20:00] VITALS: BP 121/86; PULSE 66; RESP 18; RESP 20; TEMP 98; O2SAT 98
[2022-12-28] MEDS ORDERED: MORPHINE SULFATE 2 MG/ML SYR IVP ONE (00:10)
[2022-12-28] MEDS: ONDANSETRON 4 MG/2 ML VIAL IVP PRN ×2 (00:38→05:53)
[2022-12-28] MEDS: NACL 0.9% 1,000 ML IV SCH ×4 (02:30→21:40)
[2022-12-28 04:00] VITALS: BP 120/80; PULSE 68; RESP 18; TEMP 98; O2SAT 98
[2022-12-28 06:06] LABS: BASOPHILS % (AUTO) 0.4 % (0.0-2.0); EOSINOPHILS % (AUTO) 0.1 % (0.0-4.0); HEMATOCRIT 41.1 % (36-52); HEMOGLOBIN 13.5 g/dL (12.0-18.0); LYMPHOCYTES # (AUTO) 1.8 K/uL (2.0-11.5); LYMPHOCYTES % (AUTO) 24.5 % (20.5-51.1); MEAN CORPUSCULAR HEMOGLOBIN 27 pg (27-31); MEAN CORPUSCULAR HGB CONC 33 g/dL (33-37); MEAN CORPUSCULAR VOLUME 83.2 fL (80-94); MONOCYTES # (AUTO) 0.3 K/uL (0.8-1.0); MONOCYTES % (AUTO) 4.6 % (1.7-9.3); NEUTROPHILS # (AUTO) 5.2 K/uL (1.8-7.7); NEUTROPHILS % (AUTO) 70.4 % (42.2-75.2); PLATELET COUNT (AUTO) 307 K/uL (140-450); RED BLOOD CELL COUNT(AUTO) 4.95 MIL/uL (4.20-6.10); RED CELL DISTRIBUTION WIDTH 16.3 % (11.6-13.7); WHITE BLOOD COUNT (AUTO) 7.4 K/uL (4.8-10.8)
[2022-12-28 06:27] LABS: ANION GAP 16.5 (8-16); CALCIUM 8.6 mg/dL (8.5-10.1); CARBON DIOXIDE 22.8 mmol/L (21-32); CREATININE 0.6 mg/dL (0.6-1.3); POTASSIUM 3.3 mmol/L (3.5-5.1)
[2022-12-28 06:33] LABS: MAGNESIUM 1.8 mg/dL (1.8-2.4); PHOSPHORUS 3.9 mg/dL (2.5-4.9)
[2022-12-28] MEDS: METOCLOPRAMIDE 10 MG/2 ML INJ VIAL IVP PRN (06:45)
[2022-12-28 08:00] VITALS: BP 120/56; PULSE 64; RESP 16; TEMP 97.1; O2SAT 100
[2022-12-28] MEDS: POTASSIUM CHLORIDE 10 MEQ TABER PO PRN (08:41)
[2022-12-28] MEDS ORDERED: COMMUNICATION ORDER MC SCH (09:55)
[2022-12-28] MEDS ORDERED: ALUMINUM HYD/MAG/SIMETHICONE 30 ML UDC PO SCH (10:03)
[2022-12-28] MEDS ORDERED: DICYCLOMINE HCL LIQUID 10 MG/5 ML UDC PO SCH ×2 (10:03→10:10)
[2022-12-28] MEDS: HYDROcodone/APAP 5/325 MG 1 TAB TAB PO PRN ×3 (10:20→21:23)
[2022-12-28 16:00] VITALS: BP 150/64; PULSE 93; RESP 19; TEMP 98.3; O2SAT 97
[2022-12-28 20:00] VITALS: BP 122/80; PULSE 81; RESP 18; TEMP 98; O2SAT 97
[2022-12-29] MEDS: NACL 0.9% 1,000 ML IV SCH ×2 (06:02→15:28)
[2022-12-29] MEDS: HYDROcodone/APAP 5/325 MG 1 TAB TAB PO PRN ×2 (06:10→21:30)
[2022-12-29] MEDS: PANTOPRAZOLE 40 MG INJ VIAL IVP SCH (08:24)
[2022-12-29] MEDS ORDERED: COMMUNICATION ORDER MC SCH (08:33)
[2022-12-29] MEDS ORDERED: DICYCLOMINE HCL LIQUID 10 MG/5 ML UDC PO SCH (08:34)
[2022-12-29] MEDS ORDERED: ALUMINUM HYD/MAG/SIMETHICONE 30 ML UDC PO SCH (08:34)
[2022-12-29 09:00] VITALS: PULSE 59; RESP 16
[2022-12-29 09:03] VITALS: TEMP 97.1
[2022-12-29 09:04] VITALS: BP 108/56; PULSE 59; RESP 16; TEMP 97.1; O2SAT 96
[2022-12-29] MEDS: POTASSIUM CHLORIDE 10 MEQ TABER PO PRN (09:58)
[2022-12-29 16:18] VITALS: BP 122/77; PULSE 75; RESP 17; TEMP 98; O2SAT 100
[2022-12-29 17:18] LABS: AMPHETAMINE, URINE NEGATIVE ng/ml (NEG <=1000); BARBITURATE, URINE NEGATIVE ng/ml (NEG <=200); BENZODIAZEPINE, URINE NEGATIVE ng/mL (NEG <=200); CANNABINOID, URINE POSITIVE ng/mL (NEG <=50); COCAINE, URINE NEGATIVE ng/mL (NEG <=300); OPIATE, URINE POSITIVE ng/mL (NEG <=2000)
[2022-12-29 17:19] LABS: PHENCYCLIDINE SCREEN,URINE NEGATIVE ng/mL (NEG <=25)
[2022-12-29 20:00] VITALS: BP 109/77; PULSE 80; RESP 19; TEMP 98.9; O2SAT 98
[2022-12-30] MEDS: METOCLOPRAMIDE 10 MG/2 ML INJ VIAL IVP PRN (00:15)
[2022-12-30] MEDS: NACL 0.9% 1,000 ML IV SCH ×2 (00:20→08:24)
[2022-12-30 05:21] LABS: BASOPHILS % (AUTO) 0.6 % (0.0-2.0); EOSINOPHILS # (AUTO) 0.1 K/uL (0-0.4); EOSINOPHILS % (AUTO) 1.1 % (0.0-4.0); HEMATOCRIT 39.9 % (36-52); LYMPHOCYTES # (AUTO) 3.5 K/uL (2.0-11.5); LYMPHOCYTES % (AUTO) 57.1 % (20.5-51.1); MEAN CORPUSCULAR HEMOGLOBIN 27 pg (27-31); MEAN CORPUSCULAR HGB CONC 33 g/dL (33-37); MEAN CORPUSCULAR VOLUME 83.4 fL (80-94); MONOCYTES # (AUTO) 0.4 K/uL (0.8-1.0); MONOCYTES % (AUTO) 7.4 % (1.7-9.3); NEUTROPHILS % (AUTO) 33.8 % (42.2-75.2); PLATELET COUNT (AUTO) 281 K/uL (140-450); RED BLOOD CELL COUNT(AUTO) 4.78 MIL/uL (4.20-6.10); RED CELL DISTRIBUTION WIDTH 16.2 % (11.6-13.7)
[2022-12-30 05:59] LABS: ANION GAP 12.4 (8-16); CALCIUM 8.6 mg/dL (8.5-10.1); CARBON DIOXIDE 25.8 mmol/L (21-32); CREATININE 0.6 mg/dL (0.6-1.3); POTASSIUM 3.2 mmol/L (3.5-5.1)
[2022-12-30 06:05] LABS: MAGNESIUM 1.9 mg/dL (1.8-2.4); PHOSPHORUS 3.7 mg/dL (2.5-4.9)
[2022-12-30 07:55] VITALS: TEMP 97.8
[2022-12-30] MEDS: POTASSIUM CHLORIDE 10 MEQ TABER PO PRN (08:24)
[2022-12-30] MEDS: PANTOPRAZOLE 40 MG INJ VIAL IVP SCH (08:24)
[2022-12-30] MEDS: ONDANSETRON 4 MG/2 ML VIAL IVP PRN (08:37)
[2022-12-30 09:29] VITALS: BP 116/71; PULSE 58; RESP 16; TEMP 97; O2SAT 96
[2022-12-30 14:52] VITALS: BP 116/71; PULSE 60; RESP 16; TEMP 97
[2022-12-30] MEDS ORDERED: PANT40EC PO (15:41)
[2022-12-30 17:15] VITALS: BP 150/95; PULSE 69; RESP 16; TEMP 97.3; O2SAT 96
== END 2022-12-30 17:45 | disposition home or self-care (01) ==
LOC: MED 13:48 → MTU 17:03 → OBSVTOIN 17:03 → MTU 18:40
PROVIDERS: ADMIT Hospitalist; ATTEND Hospitalist
DX: K82.8 Other specified diseases of gallbladder (principal); G82.20 Paraplegia, unspecified; R65.10 Systemic inflammatory response syndrome (SIRS) of non-infectious origin without acute organ dysfunction; F41.9 Anxiety disorder, unspecified; F32.A Depression, unspecified; G89.29 Other chronic pain; M25.852 Other specified joint disorders, left hip; Z93.3 Colostomy status
CPT/HCPCS: 36415; 73501; 78445; 80048; 80053; 80305; 81001; 82009; 82550; 82553; 83605; 83690; 83735; 84100; 85025; 87040; 87081; 93005; 96361; 96374; 96375; 99285; A9510; C9113; G0480; G0482; J1644; J1885; J2270; J2405; J2765; J7030

== ENCOUNTER 2023-02-02 17:14 | Inpatient (IN) | payer MEDICAID, OTHER ==
[~2023-02-02] VITALS: Ht 177.8 cm; Wt 65.8 kg
[2023-02-02] MEDS: NACL 0.9% 1,000 ML IV SCH (00:40)
[~2023-02-02 17:14] MED LIST changes: -CEPH-588 PO; +PANT40EC PO
[2023-02-02 17:16] VITALS: BP 149/105; PULSE 103; RESP 18; TEMP 98.4; O2SAT 98
[2023-02-02 17:57] LABS: BASOPHILS # (AUTO) 0.1 K/uL (0.00-0.22); BASOPHILS % (AUTO) 0.5 % (0.0-2.0); EOSINOPHILS % (AUTO) 0.1 % (0.0-4.0); HEMATOCRIT 47.9 % (36-52); HEMOGLOBIN 16.1 g/dL (12.0-18.0); LYMPHOCYTES # (AUTO) 1.6 K/uL (2.0-11.5); LYMPHOCYTES % (AUTO) 10.3 % (20.5-51.1); MEAN CORPUSCULAR HEMOGLOBIN 29 pg (27-31); MEAN CORPUSCULAR HGB CONC 34 g/dL (33-37); MEAN CORPUSCULAR VOLUME 85.4 fL (80-94); MONOCYTES # (AUTO) 1.4 K/uL (0.8-1.0); MONOCYTES % (AUTO) 9.1 % (1.7-9.3); NEUTROPHILS # (AUTO) 12.8 K/uL (1.8-7.7); PLATELET COUNT (AUTO) 374 K/uL (140-450); RED BLOOD CELL COUNT(AUTO) 5.61 MIL/uL (4.20-6.10); RED CELL DISTRIBUTION WIDTH 15.7 % (11.6-13.7)
[2023-02-02 18:15] LABS: ALBUMIN 4.6 g/dL (3.4-5.0); CALCIUM 9.2 mg/dL (8.5-10.1); CARBON DIOXIDE 12.9 mmol/L (21-32); CREATININE 0.7 mg/dL (0.6-1.3); TOTAL BILIRUBIN 1.5 mg/dL (0.0-1.0); TOTAL PROTEIN, SERUM 9.1 g/dL (6.4-8.2)
[2023-02-02 18:19] LABS: POTASSIUM 2.9 mmol/L (3.5-5.1)
[2023-02-02] MEDS: POTASSIUM CHLORIDE 10 MEQ TABER PO ONE ×2 (18:51→19:13)
[2023-02-02] MEDS ORDERED: NACL 0.9% 1,000 ML IV ONE (19:00)
[2023-02-02] MEDS ORDERED: cefTRIAXone 1,000 MG VIAL ONE (19:22)
[2023-02-02 19:25] LABS: APPEARANCE,URINE CLEAR (CLEAR); BILIRUBIN,URINE 1+ (NEGATIVE); BLOOD, URINE 1+ (NEGATIVE); COLOR,URINE YELLOW (YELLOW); LEUKOCYTE ESTERASE ,URINE NEGATIVE (NEGATIVE); NITRITE, URINE NEGATIVE (NEGATIVE); PH,URINE 5.5 (5.0-9.0); PROTEIN,URINE 1+ (NEGATIVE); UGLUCOSE NEGATIVE (NEGATIVE); UROBILINOGEN,URINE 0.2 EU/dL (0.2 - 1)
[2023-02-02 19:35] LABS: ICTOTEST NEGATIVE (NEGATIVE)
[2023-02-02] MEDS ORDERED: POTASSIUM CHLORIDE 40 MEQ, LIDOCAINE 1% 25 MG in NACL 0.9% 250 ML IV ONE (19:35)
[2023-02-02 19:36] LABS: BACTERIA,URINE 1+ /HPF (None Seen); SQUAMOUS EPITHELIAL CELL,UR 4-10 (MOD) /LPF (0-3 (FEW)); WBC,URINE 0-5 /HPF (0-5)
[2023-02-02] MEDS ORDERED: KCL 20 MEQ IN 100 mL PREMIX 100 ML IV ONE ×2 (20:17→20:18)
[2023-02-02] MEDS ORDERED: LORazepam 2 MG/ML VIAL IVP ONE (20:50)
[2023-02-02] MEDS ORDERED: ONDANSETRON 4 MG/2 ML VIAL IVP ONE (20:55)
[2023-02-02] MEDS ORDERED: HALOPERIDOL IM 5 MG/ML VIAL IM ONE (21:20)
[2023-02-02 22:29] LABS: ALCOHOL, BLOOD < 3 mg/dL (<10)
[2023-02-02 22:41] LABS: ACETAMINOPHEN < 0.5 ug/ml (10-30); SALICYLATE < 2.8 mg/dL (2.8-20.0)
[2023-02-02] MEDS ORDERED: DOCUSATE SODIUM 100 MG GELCAP PO PRN (23:25)
[2023-02-02] MEDS ORDERED: ACETAMINOPHEN 325 MG TAB PO PRN (23:25)
[2023-02-02] MEDS ORDERED: ZOLPIDEM 5 MG TAB PO PRN (23:25)
[2023-02-02] MEDS ORDERED: HYDROcodone/APAP 7.5/325 MG 1 TAB PO PRN (23:25)
[2023-02-02] MEDS ORDERED: guaiFENesin DM 200/20 MG-10 ML 10 ML UDC PO PRN (23:25)
[2023-02-02] MEDS ORDERED: POTASSIUM CHLORIDE 10 MEQ TABER PO PRN (23:25)
[2023-02-03] MEDS: ONDANSETRON 4 MG/2 ML VIAL IM/IVP PRN ×2 (04:24→18:04)
[2023-02-03 07:56] LABS: BASOPHILS % (AUTO) 0.2 % (0.0-2.0); HEMATOCRIT 47.2 % (36-52); HEMOGLOBIN 15.2 g/dL (12.0-18.0); LYMPHOCYTES # (AUTO) 1.8 K/uL (2.0-11.5); LYMPHOCYTES % (AUTO) 12.2 % (20.5-51.1); MEAN CORPUSCULAR HEMOGLOBIN 28 pg (27-31); MEAN CORPUSCULAR HGB CONC 32 g/dL (33-37); MEAN CORPUSCULAR VOLUME 87.5 fL (80-94); MONOCYTES # (AUTO) 1.4 K/uL (0.8-1.0); MONOCYTES % (AUTO) 9.8 % (1.7-9.3); NEUTROPHILS # (AUTO) 11.5 K/uL (1.8-7.7); NEUTROPHILS % (AUTO) 77.8 % (42.2-75.2); PLATELET COUNT (AUTO) 324 K/uL (140-450); RED CELL DISTRIBUTION WIDTH 16.1 % (11.6-13.7); WHITE BLOOD COUNT (AUTO) 14.8 K/uL (4.8-10.8)
[2023-02-03 08:42] LABS: ALBUMIN 3.8 g/dL (3.4-5.0); ANION GAP 26.6 (8-16); CALCIUM 8.8 mg/dL (8.5-10.1); CARBON DIOXIDE 12.9 mmol/L (21-32); CREATININE 0.7 mg/dL (0.6-1.3); POTASSIUM 3.5 mmol/L (3.5-5.1); TOTAL BILIRUBIN 0.9 mg/dL (0.0-1.0); TOTAL PROTEIN, SERUM 8.2 g/dL (6.4-8.2)
[2023-02-03 10:10] VITALS: PULSE 116; O2SAT 98
[2023-02-03 12:00] VITALS: BP 123/73; PULSE 105; PULSE 114; RESP 18; TEMP 97.7; O2SAT 99
[2023-02-03] MEDS: PANTOPRAZOLE 40 MG TABEC PO SCH (13:19)
[2023-02-03 15:11] VITALS: O2SAT 99
[2023-02-03 16:00] VITALS: BP 136/83; PULSE 111; RESP 18; TEMP 97.8; O2SAT 96
[2023-02-03] MEDS ORDERED: ONDANSETRON 4 MG/2 ML VIAL IVP PRN (18:00)
[2023-02-03] MEDS: NACL 0.9% 1,000 ML IV SCH ×2 (18:01→22:04)
[2023-02-03 20:00] VITALS: BP 124/80; PULSE 118; PULSE 92; RESP 18; TEMP 98.5; O2SAT 100
[2023-02-03] MEDS ORDERED: cefTRIAXone 1,000 MG VIAL ONE (22:09)
[2023-02-04] VITALS (7 sets, daily range): BP systolic 128–144; BP diastolic 68–88; PULSE 59–106; RESP 18; TEMP 96.8–98.2; O2SAT 99–100
[2023-02-04 05:32] LABS: BASOPHILS # (AUTO) 0.1 K/uL (0.00-0.22); BASOPHILS % (AUTO) 0.8 % (0.0-2.0); EOSINOPHILS # (AUTO) 0.1 K/uL (0-0.4); EOSINOPHILS % (AUTO) 0.9 % (0.0-4.0); HEMATOCRIT 39.7 % (36-52); HEMOGLOBIN 13.2 g/dL (12.0-18.0); LYMPHOCYTES # (AUTO) 2.4 K/uL (2.0-11.5); LYMPHOCYTES % (AUTO) 28.7 % (20.5-51.1); MEAN CORPUSCULAR HEMOGLOBIN 28 pg (27-31); MEAN CORPUSCULAR HGB CONC 33 g/dL (33-37); MEAN CORPUSCULAR VOLUME 85.3 fL (80-94); MONOCYTES # (AUTO) 0.9 K/uL (0.8-1.0); MONOCYTES % (AUTO) 10.7 % (1.7-9.3); NEUTROPHILS # (AUTO) 4.9 K/uL (1.8-7.7); NEUTROPHILS % (AUTO) 58.9 % (42.2-75.2); PLATELET COUNT (AUTO) 280 K/uL (140-450); RED BLOOD CELL COUNT(AUTO) 4.65 MIL/uL (4.20-6.10); RED CELL DISTRIBUTION WIDTH 15.9 % (11.6-13.7); WHITE BLOOD COUNT (AUTO) 8.3 K/uL (4.8-10.8)
[2023-02-04 07:36] LABS: ALBUMIN 3.3 g/dL (3.4-5.0); ANION GAP 17.6 (8-16); CALCIUM 8.2 mg/dL (8.5-10.1); CARBON DIOXIDE 19.4 mmol/L (21-32); CREATININE 0.6 mg/dL (0.6-1.3); TOTAL BILIRUBIN 0.7 mg/dL (0.0-1.0); TOTAL PROTEIN, SERUM 6.7 g/dL (6.4-8.2)
[2023-02-04] MEDS: PANTOPRAZOLE 40 MG TABEC PO SCH (09:19)
[2023-02-04] MEDS: ONDANSETRON 4 MG/2 ML VIAL IM/IVP PRN (14:48)
== END 2023-02-04 17:41 | disposition home or self-care (01) | DRG 466 ==
LOC: MED 17:14 → MTU 23:28
PROVIDERS: ADMIT Student in an Organized Health Care Education/Training Program; ATTEND Student in an Organized Health Care Education/Training Program
DX: T83.84XA Pain due to genitourinary prosthetic devices, implants and grafts, initial encounter (principal); G82.20 Paraplegia, unspecified; T83.098A Other mechanical complication of other urinary catheter, initial encounter; E87.6 Hypokalemia; I10 Essential (primary) hypertension; F32.A Depression, unspecified; Y82.8 Other medical devices associated with adverse incidents; K42.9 Umbilical hernia without obstruction or gangrene; N20.0 Calculus of kidney; W34.09XA Accidental discharge from other specified firearms, initial encounter; E86.0 Dehydration; Y92.89 Other specified places as the place of occurrence of the external cause; Y93.89 Activity, other specified; Y99.8 Other external cause status
CPT/HCPCS: 36415; 70450; 71045; 80053; 81001; 82140; 83605; 83690; 85025; 87040; 87081; 87086; 93005; 96372; 96375; 99285; G0480; G0482; J0696; J1630; J2001; J2060; J2405; J3480; J7030; J7060

== ENCOUNTER 2023-02-13 23:10 | Emergency (ER) | payer OTHER, MEDICAID ==
[~2023-02-13] VITALS: Ht 180.3 cm; Wt 99.8 kg
[2023-02-13 23:17] VITALS: BP 126/77; PULSE 121; RESP 18; TEMP 97.7; O2SAT 98
[2023-02-14] MEDS ORDERED: NACL 0.9% 1,000 ML IV ONE (00:45)
[2023-02-14] MEDS ORDERED: cefTRIAXone 2,000 MG in DEXTROSE 5% 100 ML IV ONE (00:45)
[2023-02-14] MEDS ORDERED: cefTRIAXone 1,000 MG VIAL ONE ×2 (00:56→01:16)
[2023-02-14 01:36] LABS: BASOPHILS % (AUTO) 0.4 % (0.0-2.0); EOSINOPHILS % (AUTO) 0.7 % (0.0-4.0); HEMATOCRIT 36.2 % (36-52); HEMOGLOBIN 12.1 g/dL (12.0-18.0); LYMPHOCYTES # (AUTO) 1.1 K/uL (2.0-11.5); LYMPHOCYTES % (AUTO) 15.9 % (20.5-51.1); MEAN CORPUSCULAR HEMOGLOBIN 29 pg (27-31); MEAN CORPUSCULAR HGB CONC 34 g/dL (33-37); MEAN CORPUSCULAR VOLUME 85.5 fL (80-94); MONOCYTES # (AUTO) 0.8 K/uL (0.8-1.0); MONOCYTES % (AUTO) 10.5 % (1.7-9.3); NEUTROPHILS # (AUTO) 5.2 K/uL (1.8-7.7); NEUTROPHILS % (AUTO) 72.5 % (42.2-75.2); PLATELET COUNT (AUTO) 239 K/uL (140-450); RED BLOOD CELL COUNT(AUTO) 4.24 MIL/uL (4.20-6.10); RED CELL DISTRIBUTION WIDTH 15.3 % (11.6-13.7); WHITE BLOOD COUNT (AUTO) 7.2 K/uL (4.8-10.8)
[2023-02-14 01:58] LABS: ALBUMIN 3.2 g/dL (3.4-5.0); CALCIUM 8.2 mg/dL (8.5-10.1); CARBON DIOXIDE 25.1 mmol/L (21-32); CREATININE 0.8 mg/dL (0.6-1.3); POTASSIUM 3.1 mmol/L (3.5-5.1); TOTAL BILIRUBIN 0.4 mg/dL (0.0-1.0); TOTAL PROTEIN, SERUM 6.7 g/dL (6.4-8.2)
[2023-02-14 02:02] LABS: APPEARANCE,URINE CLEAR (CLEAR); BILIRUBIN,URINE 2+ (NEGATIVE); BLOOD, URINE 3+ (NEGATIVE); COLOR,URINE YELLOW (YELLOW); LEUKOCYTE ESTERASE ,URINE 3+ (NEGATIVE); NITRITE, URINE POSITIVE (NEGATIVE); PH,URINE 6.5 (5.0-9.0); PROTEIN,URINE 3+ (NEGATIVE); UGLUCOSE TRACE (NEGATIVE)
[2023-02-14 02:03] LABS: ICTOTEST POSITIVE (NEGATIVE)
[2023-02-14 02:04] LABS: BACTERIA,URINE 10-30 (MOD) /HPF (None Seen); MUCUS,URINE 1+ /LPF (None Seen); RBC,URINE TOO NUMEROUS TO COUN /HPF (0-5); SQUAMOUS EPITHELIAL CELL,UR 0-3 (FEW) /LPF (0-3 (FEW)); WBC,URINE TOO MANY TO COUNT /HPF (0-5)
[2023-02-14] MEDS ORDERED: CIPR500T4 PO (02:12)
[2023-02-14] MEDS ORDERED: MORPHINE SULFATE 4 MG/ML SYR IVP ONE (02:30)
[2023-02-14 03:20] VITALS: BP 126/77; PULSE 114; RESP 18; TEMP 100.8; O2SAT 98
[2023-02-16] MEDS ORDERED: LEVO750T75 PO (13:34)
== END 2023-02-14 03:20 | disposition home or self-care (01) ==
LOC: MED 23:10
DX: N39.0 Urinary tract infection, site not specified (principal); G82.20 Paraplegia, unspecified; I10 Essential (primary) hypertension; Z87.448 Personal history of other diseases of urinary system; Z98.890 Other specified postprocedural states; Z79.899 Other long term (current) drug therapy; Z79.2 Long term (current) use of antibiotics
CPT/HCPCS: 36415; 71045; 80053; 81001; 83605; 85025; 87040; 87086; 96365; 96375; 99284; J0696; J2270; J7030

== ENCOUNTER 2023-03-17 07:59 | Inpatient (IN) | payer MEDICAID, OTHER ==
[~2023-03-17] VITALS: Ht 175.3 cm; Wt 95.3 kg
[~2023-03-17 07:59] MED LIST changes: +LEVO750T75 PO
[2023-03-17 08:26] VITALS: BP 164/87; PULSE 69; RESP 14; TEMP 97.4; O2SAT 100
[2023-03-17] MEDS ORDERED: fentaNYL citrate 0.05 MG/ML VIAL IVP ONE ×2 (08:35→10:00)
[2023-03-17] MEDS ORDERED: NACL 0.9% 1,000 ML IV ONE ×3 (08:35→12:20)
[2023-03-17] MEDS ORDERED: ONDANSETRON 4 MG/2 ML VIAL IVP ONE (08:35)
[2023-03-17 09:09] LABS: BASOPHILS # (AUTO) 0.1 K/uL (0.00-0.22); BASOPHILS % (AUTO) 0.4 % (0.0-2.0); EOSINOPHILS % (AUTO) 0.2 % (0.0-4.0); HEMOGLOBIN 14.1 g/dL (12.0-18.0); LYMPHOCYTES # (AUTO) 1.7 K/uL (2.0-11.5); LYMPHOCYTES % (AUTO) 11.3 % (20.5-51.1); MEAN CORPUSCULAR HEMOGLOBIN 28 pg (27-31); MEAN CORPUSCULAR HGB CONC 32 g/dL (33-37); MEAN CORPUSCULAR VOLUME 86.4 fL (80-94); MONOCYTES # (AUTO) 0.5 K/uL (0.8-1.0); MONOCYTES % (AUTO) 3.7 % (1.7-9.3); NEUTROPHILS # (AUTO) 12.4 K/uL (1.8-7.7); NEUTROPHILS % (AUTO) 84.4 % (42.2-75.2); PLATELET COUNT (AUTO) 332 K/uL (140-450); RED BLOOD CELL COUNT(AUTO) 5.09 MIL/uL (4.20-6.10); WHITE BLOOD COUNT (AUTO) 14.7 K/uL (4.8-10.8)
[2023-03-17 09:41] LABS: ALBUMIN 3.9 g/dL (3.4-5.0); ANION GAP 22.1 (8-16); CALCIUM 9.1 mg/dL (8.5-10.1); CARBON DIOXIDE 19.1 mmol/L (21-32); CREATININE 0.9 mg/dL (0.6-1.3); POTASSIUM 3.2 mmol/L (3.5-5.1); TOTAL BILIRUBIN 0.3 mg/dL (0.0-1.0); TOTAL PROTEIN, SERUM 7.7 g/dL (6.4-8.2)
[2023-03-17 09:51] LABS: LACTIC ACID 7.1 mmol/L (0.4-2.0)
[2023-03-17] MEDS ORDERED: HYDROcodone/APAP 5/325 MG 1 TAB TAB PO PRN (12:35)
[2023-03-17] MEDS ORDERED: cefTRIAXone 1,000 MG VIAL ONE (12:35)
[2023-03-17] MEDS ORDERED: ACETAMINOPHEN 325 MG TAB PO PRN (12:35)
[2023-03-17] MEDS ORDERED: ONDANSETRON 4 MG/2 ML VIAL IVP PRN (12:35)
[2023-03-17 12:37] LABS: APPEARANCE,URINE CLEAR (CLEAR); BILIRUBIN,URINE NEGATIVE (NEGATIVE); BLOOD, URINE NEGATIVE (NEGATIVE); COLOR,URINE YELLOW (YELLOW); LEUKOCYTE ESTERASE ,URINE NEGATIVE (NEGATIVE); NITRITE, URINE NEGATIVE (NEGATIVE); PROTEIN,URINE NEGATIVE (NEGATIVE); UGLUCOSE NEGATIVE (NEGATIVE); UROBILINOGEN,URINE 0.2 EU/dL (0.2 - 1)
[2023-03-17] MEDS: NACL 0.9% 1,000 ML IV SCH (17:30)
[2023-03-17] MEDS ORDERED: METOCLOPRAMIDE 10 MG/2 ML INJ VIAL IVP PRN (18:15)
[2023-03-17 19:42] VITALS: O2SAT 95
[2023-03-18] VITALS: BP 140/84; PULSE 92; RESP 20; TEMP 98.4; O2SAT 99
[2023-03-18] MEDS: MORPHINE SULFATE 2 MG/ML SYR IVP PRN ×4 (00:17→17:26)
[2023-03-18] MEDS: NACL 0.9% 1,000 ML IV SCH ×2 (02:32→18:27)
[2023-03-18 04:00] VITALS: BP 104/58; PULSE 70; RESP 18; TEMP 97; O2SAT 99
[2023-03-18 07:53] LABS: ANION GAP 13.9 (8-16); CARBON DIOXIDE 25.8 mmol/L (21-32); CREATININE 0.5 mg/dL (0.6-1.3); POTASSIUM 3.7 mmol/L (3.5-5.1)
[2023-03-18 08:00] VITALS: BP 105/55; PULSE 53; RESP 16; TEMP 97.4; O2SAT 97
[2023-03-18 08:04] LABS: BASOPHILS % (AUTO) 0.1 % (0.0-2.0); EOSINOPHILS # (AUTO) 0.1 K/uL (0-0.4); EOSINOPHILS % (AUTO) 0.7 % (0.0-4.0); HEMATOCRIT 39.1 % (36-52); HEMOGLOBIN 12.6 g/dL (12.0-18.0); LYMPHOCYTES # (AUTO) 2.7 K/uL (2.0-11.5); MEAN CORPUSCULAR HEMOGLOBIN 28 pg (27-31); MEAN CORPUSCULAR HGB CONC 32 g/dL (33-37); MEAN CORPUSCULAR VOLUME 86.5 fL (80-94); MONOCYTES # (AUTO) 0.7 K/uL (0.8-1.0); MONOCYTES % (AUTO) 8.8 % (1.7-9.3); NEUTROPHILS # (AUTO) 4.8 K/uL (1.8-7.7); NEUTROPHILS % (AUTO) 57.4 % (42.2-75.2); PLATELET COUNT (AUTO) 283 K/uL (140-450); RED BLOOD CELL COUNT(AUTO) 4.52 MIL/uL (4.20-6.10); WHITE BLOOD COUNT (AUTO) 8.3 K/uL (4.8-10.8)
[2023-03-18 08:17] LABS: CALCIUM 8.4 mg/dL (8.5-10.1)
[2023-03-18] MEDS: ENOXAPARIN 40 MG/0.4 ML SYR SUBQ SCH (09:00)
[2023-03-18] MEDS ORDERED: MAGNESIUM HYDROXIDE 2400 MG/30 ML UDC PO SCH (09:10)
[2023-03-18] MEDS: SERTRALINE 50 MG TAB PO SCH (09:46)
[2023-03-18] MEDS: PANTOPRAZOLE 40 MG TABEC PO SCH (09:46)
[2023-03-18 16:00] VITALS: BP 127/55; PULSE 93; RESP 16; TEMP 97.6; O2SAT 97
[2023-03-18] MEDS: LACTULOSE 20 GM/30 ML UDC PO SCH (20:40)
[2023-03-18] MEDS: DOCUSATE SODIUM 250 MG GELCAP PO SCH (21:14)
[2023-03-18] MEDS: HYDROmorphone 1 MG/ML AMP IVP PRN (22:05)
[2023-03-19] MEDS: HYDROmorphone 1 MG/ML AMP IVP PRN (04:25)
[2023-03-19 07:02] LABS: ANION GAP 11.5 (8-16); CALCIUM 8.4 mg/dL (8.5-10.1); CARBON DIOXIDE 27.6 mmol/L (21-32); CREATININE 0.5 mg/dL (0.6-1.3); POTASSIUM 4.1 mmol/L (3.5-5.1)
[2023-03-19 07:07] LABS: BASOPHILS % (AUTO) 0.3 % (0.0-2.0); EOSINOPHILS # (AUTO) 0.1 K/uL (0-0.4); EOSINOPHILS % (AUTO) 2.1 % (0.0-4.0); HEMATOCRIT 36.7 % (36-52); HEMOGLOBIN 11.8 g/dL (12.0-18.0); LYMPHOCYTES # (AUTO) 2.6 K/uL (2.0-11.5); LYMPHOCYTES % (AUTO) 40.3 % (20.5-51.1); MEAN CORPUSCULAR HEMOGLOBIN 28 pg (27-31); MEAN CORPUSCULAR HGB CONC 32 g/dL (33-37); MEAN CORPUSCULAR VOLUME 86.4 fL (80-94); MONOCYTES # (AUTO) 0.6 K/uL (0.8-1.0); NEUTROPHILS # (AUTO) 3.1 K/uL (1.8-7.7); NEUTROPHILS % (AUTO) 48.3 % (42.2-75.2); PLATELET COUNT (AUTO) 250 K/uL (140-450); RED BLOOD CELL COUNT(AUTO) 4.24 MIL/uL (4.20-6.10); RED CELL DISTRIBUTION WIDTH 14.7 % (11.6-13.7); WHITE BLOOD COUNT (AUTO) 6.4 K/uL (4.8-10.8)
[2023-03-19 08:00] VITALS: BP 113/51; PULSE 49; RESP 17; TEMP 97.1; O2SAT 97
[2023-03-19] MEDS: LACTULOSE 20 GM/30 ML UDC PO SCH (08:27)
[2023-03-19] MEDS: SERTRALINE 50 MG TAB PO SCH (08:27)
[2023-03-19] MEDS: DOCUSATE SODIUM 250 MG GELCAP PO SCH (08:28)
[2023-03-19] MEDS: PANTOPRAZOLE 40 MG TABEC PO SCH (08:28)
[2023-03-19] MEDS: ENOXAPARIN 40 MG/0.4 ML SYR SUBQ SCH (08:41)
[2023-03-19] MEDS ORDERED: CYCLOBENZAPRINE 10 MG TAB PO PRN (11:00)
[2023-03-19] MEDS ORDERED: ACET-9527 PO (12:23)
[2023-03-19] MEDS ORDERED: DOCU250C7 PO (12:23)
[2023-03-19] MEDS ORDERED: CEPH500C16 PO (12:23)
[2023-03-19] MEDS ORDERED: LACT10SO11 PO (12:23)
[2023-03-19] MEDS: MORPHINE SULFATE 2 MG/ML SYR IVP PRN (13:42)
[2023-03-19 16:00] VITALS: BP 102/58; PULSE 67; RESP 18; TEMP 97.4; O2SAT 97
== END 2023-03-19 17:35 | disposition home or self-care (01) | DRG 254 ==
LOC: MED 07:59 → MTU 12:54
PROVIDERS: ADMIT Internal Medicine; ATTEND Internal Medicine
DX: K43.5 Parastomal hernia without obstruction or gangrene (principal); R65.10 Systemic inflammatory response syndrome (SIRS) of non-infectious origin without acute organ dysfunction; N39.0 Urinary tract infection, site not specified; K59.00 Constipation, unspecified; F32.A Depression, unspecified; F41.9 Anxiety disorder, unspecified
CPT/HCPCS: 36415; 74021; 80048; 80053; 81003; 83605; 83735; 85025; 87040; 87081; 87086; 96361; 96365; 96375; 96376; 99285; J0696; J1170; J1650; J2270; J2405; J3010; J7060

== ENCOUNTER 2023-04-03 18:56 | Emergency (ER) | payer OTHER ==
[~2023-04-03] VITALS: Ht 172.7 cm; Wt 99.8 kg
[~2023-04-03 18:56] MED LIST changes: +ACET-9527 PO; +CEPH500C16 PO; +DOCU250C7 PO; +LACT10SO11 PO; -LEVO750T75 PO
[2023-04-03 18:57] VITALS: BP 138/74; PULSE 85; RESP 18; TEMP 97.8; O2SAT 95
[2023-04-03] MEDS ORDERED: MORPHINE SULFATE 4 MG/ML SYR IVP ONE (19:30)
[2023-04-03 19:51] LABS: BASOPHILS # (AUTO) 0.1 K/uL (0.00-0.22); BASOPHILS % (AUTO) 0.8 % (0.0-2.0); EOSINOPHILS # (AUTO) 0.3 K/uL (0-0.4); EOSINOPHILS % (AUTO) 3.3 % (0.0-4.0); HEMATOCRIT 41.4 % (36-52); HEMOGLOBIN 13.8 g/dL (12.0-18.0); LYMPHOCYTES # (AUTO) 2.9 K/uL (2.0-11.5); LYMPHOCYTES % (AUTO) 39.2 % (20.5-51.1); MEAN CORPUSCULAR HEMOGLOBIN 28 pg (27-31); MEAN CORPUSCULAR HGB CONC 33 g/dL (33-37); MEAN CORPUSCULAR VOLUME 85.5 fL (80-94); MONOCYTES # (AUTO) 0.6 K/uL (0.8-1.0); MONOCYTES % (AUTO) 7.9 % (1.7-9.3); NEUTROPHILS # (AUTO) 3.7 K/uL (1.8-7.7); NEUTROPHILS % (AUTO) 48.8 % (42.2-75.2); PLATELET COUNT (AUTO) 259 K/uL (140-450); RED BLOOD CELL COUNT(AUTO) 4.84 MIL/uL (4.20-6.10); RED CELL DISTRIBUTION WIDTH 14.3 % (11.6-13.7); WHITE BLOOD COUNT (AUTO) 7.5 K/uL (4.8-10.8)
[2023-04-03 19:58] LABS: ANION GAP 14.4 (8-16); CALCIUM 8.6 mg/dL (8.5-10.1); CARBON DIOXIDE 26.3 mmol/L (21-32); CREATININE 0.7 mg/dL (0.6-1.3); POTASSIUM 3.7 mmol/L (3.5-5.1)
[2023-04-04] MEDS ORDERED: HYDROcodone/APAP 5/325 MG 1 TAB TAB PO ONE (02:00)
[2023-04-04] MEDS ORDERED: ACET-8905 PO (02:01)
[2023-04-04 02:02] LABS: APPEARANCE,URINE CLEAR (CLEAR); BILIRUBIN,URINE NEGATIVE (NEGATIVE); BLOOD, URINE 1+ (NEGATIVE); COLOR,URINE YELLOW (YELLOW); LEUKOCYTE ESTERASE ,URINE NEGATIVE (NEGATIVE); NITRITE, URINE NEGATIVE (NEGATIVE); PROTEIN,URINE NEGATIVE (NEGATIVE); UGLUCOSE NEGATIVE (NEGATIVE); UROBILINOGEN,URINE 0.2 EU/dL (0.2 - 1)
[2023-04-04 02:07] LABS: BACTERIA,URINE 10-30 (MOD) /HPF (None Seen); MUCUS,URINE 1+ /LPF (None Seen); SQUAMOUS EPITHELIAL CELL,UR 0-3 (FEW) /LPF (0-3 (FEW)); WBC,URINE 0-5 /HPF (0-5)
[2023-04-04 10:55] VITALS: BP 138/74; PULSE 85; RESP 18; TEMP 97.8; O2SAT 95
== END 2023-04-04 10:59 | disposition home or self-care (01) ==
LOC: MED 18:56
DX: R10.32 Left lower quadrant pain (principal); I10 Essential (primary) hypertension; F32.9 Major depressive disorder, single episode, unspecified; Z87.448 Personal history of other diseases of urinary system; Z98.890 Other specified postprocedural states; Z79.899 Other long term (current) drug therapy; Z79.2 Long term (current) use of antibiotics
CPT/HCPCS: 36415; 74176; 80048; 81001; 83690; 85025; 96374; 99285; J2270

== ENCOUNTER 2023-04-14 18:32 | Emergency (ER) | payer OTHER ==
[~2023-04-14] VITALS: Ht 167.6 cm; Wt 72.6 kg
[2023-04-14 18:32] VITALS: BP_SYST 112; BP_DIAS 5; BP_DIAS 56; PULSE 81; RESP 19; TEMP 98; O2SAT 99
[~2023-04-14 18:32] MED LIST changes: +ACET-8905 PO
[2023-04-14 18:47] VITALS: BP 112/56; PULSE 81; RESP 19; TEMP 98; O2SAT 99
[2023-04-14] MEDS: MORPHINE SULFATE 4 MG/ML SYR IM ONE ×2 (19:05→20:09)
[2023-04-14] MEDS ORDERED: ACET-10509 PO (19:42)
[2023-04-14] MEDS ORDERED: LID5T TP (19:42)
[2023-04-14] MEDS ORDERED: CYCL-711 PO (19:42)
[2023-04-14] MEDS: MORPHINE SULFATE 4 MG/ML SYR IVP ONE (22:48)
== END 2023-04-14 20:40 | disposition home or self-care (01) ==
LOC: MED 18:32
DX: G89.29 Other chronic pain (principal); M25.552 Pain in left hip; I10 Essential (primary) hypertension; Z87.448 Personal history of other diseases of urinary system; Z79.899 Other long term (current) drug therapy; Z79.2 Long term (current) use of antibiotics
CPT/HCPCS: 96372; 99284; J2270

== ENCOUNTER 2023-05-04 21:33 | Observation (INO) | payer OTHER ==
[~2023-05-04] VITALS: Ht 175.3 cm; Wt 99.8 kg
[~2023-05-04 21:33] MED LIST changes: +ACET-10509 PO; +CYCL-711 PO; +LID5T TP
[2023-05-04 21:35] VITALS: BP 149/98; PULSE 96; RESP 18; TEMP 97.7; O2SAT 100
[2023-05-04] MEDS ORDERED: MORPHINE SULFATE 4 MG/ML SYR IVP ONE (22:35)
[2023-05-04] MEDS ORDERED: NACL 0.9% 1,000 ML IV SCH (22:35)
[2023-05-04] MEDS ORDERED: ONDANSETRON 4 MG/2 ML VIAL IVP ONE (22:35)
[2023-05-04 22:41] LABS: BASOPHILS # (AUTO) 0.1 K/uL (0.00-0.22); BASOPHILS % (AUTO) 0.3 % (0.0-2.0); EOSINOPHILS # (AUTO) 0.1 K/uL (0-0.4); EOSINOPHILS % (AUTO) 0.5 % (0.0-4.0); HEMATOCRIT 47.1 % (36-52); HEMOGLOBIN 15.5 g/dL (12.0-18.0); LYMPHOCYTES # (AUTO) 3.2 K/uL (2.0-11.5); LYMPHOCYTES % (AUTO) 15.9 % (20.5-51.1); MEAN CORPUSCULAR HEMOGLOBIN 28 pg (27-31); MEAN CORPUSCULAR HGB CONC 33 g/dL (33-37); MEAN CORPUSCULAR VOLUME 86.2 fL (80-94); MONOCYTES # (AUTO) 0.9 K/uL (0.8-1.0); MONOCYTES % (AUTO) 4.4 % (1.7-9.3); NEUTROPHILS # (AUTO) 15.6 K/uL (1.8-7.7); NEUTROPHILS % (AUTO) 78.9 % (42.2-75.2); PLATELET COUNT (AUTO) 275 K/uL (140-450); RED BLOOD CELL COUNT(AUTO) 5.46 MIL/uL (4.20-6.10); RED CELL DISTRIBUTION WIDTH 14.2 % (11.6-13.7); WHITE BLOOD COUNT (AUTO) 19.8 K/uL (4.8-10.8)
[2023-05-04 22:54] LABS: ANION GAP 21.5 (8-16); CALCIUM 9.4 mg/dL (8.5-10.1); CARBON DIOXIDE 22.1 mmol/L (21-32); CREATININE 0.8 mg/dL (0.6-1.3); POTASSIUM 3.6 mmol/L (3.5-5.1)
[2023-05-04 22:59] LABS: ALBUMIN 3.8 g/dL (3.4-5.0); TOTAL BILIRUBIN 0.5 mg/dL (0.0-1.0); TOTAL PROTEIN, SERUM 9.1 g/dL (6.4-8.2)
[2023-05-04 23:13] LABS: LACTIC ACID 6.7 mmol/L (0.4-2.0)
[2023-05-04] MEDS ORDERED: NACL 0.9% 1,000 ML IV ONE (23:20)
[2023-05-04] MEDS ORDERED: cefTRIAXone 1,000 MG VIAL ONE (23:42)
[2023-05-04 23:46] LABS: APPEARANCE,URINE CLEAR (CLEAR); BILIRUBIN,URINE NEGATIVE (NEGATIVE); BLOOD, URINE NEGATIVE (NEGATIVE); COLOR,URINE YELLOW (YELLOW); LEUKOCYTE ESTERASE ,URINE NEGATIVE (NEGATIVE); NITRITE, URINE NEGATIVE (NEGATIVE); PH,URINE 7.5 (5.0-9.0); PROTEIN,URINE NEGATIVE (NEGATIVE); UGLUCOSE NEGATIVE (NEGATIVE); UROBILINOGEN,URINE 0.2 EU/dL (0.2 - 1)
[2023-05-05] MEDS: NACL 0.9% 1,000 ML IV SCH ×2 (00:30→07:15)
[2023-05-05] MEDS ORDERED: MORPHINE SULFATE 4 MG/ML SYR IVP ONE (00:35)
[2023-05-05] MEDS ORDERED: metroNIDAZOLE 500 MG/NS PREMIX 100 ML IV ONE (00:35)
[2023-05-05] MEDS ORDERED: diphenhydrAMINE 50 MG/ML VIAL IVP ONE (01:25)
[2023-05-05] MEDS ORDERED: METOCLOPRAMIDE 10 MG/2 ML INJ VIAL IVP ONE (01:25)
[2023-05-05] MEDS ORDERED: [UNRECOGNIZED DRUG - CODE] PO (03:50)
[2023-05-05] MEDS ORDERED: BACL20TA4 PO (03:50)
[2023-05-05] MEDS ORDERED: GABA100C PO (03:50)
[2023-05-05] MEDS ORDERED: HYDROmorphone PFS 2 MG/ML SYR IVP ONE (04:35)
[2023-05-05] MEDS ORDERED: HYDROcodone/APAP 5/325 MG 1 TAB TAB PO PRN (06:15)
[2023-05-05] MEDS ORDERED: ACETAMINOPHEN 325 MG TAB PO PRN (06:15)
[2023-05-05] MEDS: ONDANSETRON 4 MG/2 ML VIAL IVP PRN (10:03)
[2023-05-05] MEDS: PANTOPRAZOLE 40 MG TABEC PO SCH (10:32)
[2023-05-05] MEDS: BACLOFEN 10 MG TAB PO SCH ×3 (10:32→18:51)
[2023-05-05] MEDS: SERTRALINE 50 MG TAB PO SCH (10:32)
[2023-05-05] MEDS: DOCUSATE SODIUM 100 MG GELCAP PO SCH ×2 (10:32→21:26)
[2023-05-05] MEDS: MORPHINE SULFATE 2 MG/ML SYR IVP PRN ×3 (10:43→20:59)
[2023-05-05] MEDS ORDERED: cefTRIAXone 1,000 MG VIAL ONE (21:15)
[2023-05-06 06:44] LABS: BASOPHILS # (AUTO) 0.1 K/uL (0.00-0.22); BASOPHILS % (AUTO) 0.7 % (0.0-2.0); EOSINOPHILS # (AUTO) 0.1 K/uL (0-0.4); EOSINOPHILS % (AUTO) 0.6 % (0.0-4.0); HEMOGLOBIN 14.8 g/dL (12.0-18.0); LYMPHOCYTES # (AUTO) 4.6 K/uL (2.0-11.5); LYMPHOCYTES % (AUTO) 52.6 % (20.5-51.1); MEAN CORPUSCULAR HEMOGLOBIN 29 pg (27-31); MEAN CORPUSCULAR HGB CONC 34 g/dL (33-37); MEAN CORPUSCULAR VOLUME 85.3 fL (80-94); MONOCYTES # (AUTO) 0.7 K/uL (0.8-1.0); MONOCYTES % (AUTO) 8.2 % (1.7-9.3); NEUTROPHILS # (AUTO) 3.3 K/uL (1.8-7.7); NEUTROPHILS % (AUTO) 37.9 % (42.2-75.2); PLATELET COUNT (AUTO) 248 K/uL (140-450); RED BLOOD CELL COUNT(AUTO) 5.16 MIL/uL (4.20-6.10); RED CELL DISTRIBUTION WIDTH 14.6 % (11.6-13.7); WHITE BLOOD COUNT (AUTO) 8.8 K/uL (4.8-10.8)
[2023-05-06] MEDS: MORPHINE SULFATE 2 MG/ML SYR IVP PRN (06:57)
[2023-05-06 07:12] LABS: ALBUMIN 3.6 g/dL (3.4-5.0); ANION GAP 16.9 (8-16); CALCIUM 9.2 mg/dL (8.5-10.1); CARBON DIOXIDE 22.5 mmol/L (21-32); CREATININE 0.7 mg/dL (0.6-1.3); MAGNESIUM 1.8 mg/dL (1.8-2.4); POTASSIUM 3.4 mmol/L (3.5-5.1); TOTAL BILIRUBIN 0.7 mg/dL (0.0-1.0); TOTAL PROTEIN, SERUM 8.2 g/dL (6.4-8.2)
[2023-05-06 07:50] VITALS: O2SAT 98
[2023-05-06] MEDS: ONDANSETRON 4 MG/2 ML VIAL IVP PRN (08:49)
[2023-05-06] MEDS: NACL 0.9% 1,000 ML IV SCH (08:55)
[2023-05-06] MEDS: PANTOPRAZOLE 40 MG TABEC PO SCH (09:00)
[2023-05-06] MEDS: SERTRALINE 50 MG TAB PO SCH (09:00)
[2023-05-06] MEDS: DOCUSATE SODIUM 100 MG GELCAP PO SCH (09:00)
[2023-05-06] MEDS: BACLOFEN 10 MG TAB PO SCH (09:00)
[2023-05-06 09:07] VITALS: BP 111/50; PULSE 76; RESP 18; TEMP 98.1
[2023-05-06] MEDS ORDERED: KETOROLAC 30 MG/ML VIAL IVP SCH (09:33)
== END 2023-05-06 18:10 | disposition home or self-care (01) ==
LOC: MED 21:33 → MMU 05-05 06:14 → MTU 05-06 06:09
PROVIDERS: ADMIT Hospitalist; ATTEND Hospitalist
DX: R10.9 Unspecified abdominal pain (principal); G82.20 Paraplegia, unspecified; R11.2 Nausea with vomiting, unspecified; I10 Essential (primary) hypertension; D72.829 Elevated white blood cell count, unspecified; E87.20 Acidosis, unspecified; Z93.3 Colostomy status; Z79.899 Other long term (current) drug therapy
CPT/HCPCS: 36415; 74176; 80048; 80053; 80076; 81003; 82550; 83605; 83690; 83735; 85025; 87040; 87086; 96361; 96365; 96366; 96367; 96375; 96376; 99291; G0378; J0696; J1170; J1200; J1885; J2270; J2405; J2765; J3490; J7060

== ENCOUNTER 2023-06-15 01:30 | Emergency (ER) | payer OTHER ==
[~2023-06-15] VITALS: Ht 172.7 cm; Wt 81.6 kg
[~2023-06-15 01:30] MED LIST changes: +BACL20TA4 PO; +GABA100C PO; +[UNRECOGNIZED DRUG - CODE] PO
[2023-06-15 01:38] VITALS: BP 142/64; PULSE 84; RESP 16; TEMP 97.4; O2SAT 99
[2023-06-15] MEDS: HYDROcodone/APAP 5/325 MG 1 TAB TAB PO ONE (02:22)
[2023-06-15] MEDS: BACITRACIN OINT 500 UNITS/GM PKT TP ONE (02:23)
[2023-06-15] MEDS ORDERED: CLIN150C1 PO (02:30)
[2023-06-15] MEDS: CLINDAMYCIN 150 MG CAP PO ONE (02:39)
[2023-06-15 05:08] VITALS: BP 142/64; PULSE 84; RESP 16; TEMP 97.4; O2SAT 99
== END 2023-06-15 05:08 | disposition home or self-care (01) ==
LOC: MED 01:30
DX: S81.802A Unspecified open wound, left lower leg, initial encounter (principal); L03.116 Cellulitis of left lower limb; I10 Essential (primary) hypertension; Z87.448 Personal history of other diseases of urinary system; Z79.899 Other long term (current) drug therapy; X58.XXXA Exposure to other specified factors, initial encounter; Y92.89 Other specified places as the place of occurrence of the external cause; Y93.89 Activity, other specified; Y99.8 Other external cause status
CPT/HCPCS: 99284

== ENCOUNTER 2023-06-28 05:17 | Inpatient (IN) | payer OTHER ==
[~2023-06-28] VITALS: Ht 165.1 cm; Wt 104.3 kg
[~2023-06-28 05:17] MED LIST changes: +CLIN150C1 PO
[2023-06-28 05:24] VITALS: BP 168/89; PULSE 93; RESP 20; TEMP 98.5; O2SAT 98
[2023-06-28] MEDS: ONDANSETRON 4 MG ODT PO ONE (06:18)
[2023-06-28] MEDS: NACL 0.9% 1,000 ML IV SCH ×2 (07:12→12:50)
[2023-06-28] MEDS: ONDANSETRON 4 MG/2 ML VIAL IVP ONE ×2 (07:13→07:58)
[2023-06-28] MEDS: MORPHINE SULFATE 4 MG/ML SYR IVP ONE (07:13)
[2023-06-28 07:28] LABS: BASOPHILS % (AUTO) 0.2 % (0.0-2.0); EOSINOPHILS % (AUTO) 0.1 % (0.0-4.0); HEMATOCRIT 44.2 % (36-52); HEMOGLOBIN 14.7 g/dL (12.0-18.0); LYMPHOCYTES % (AUTO) 5.5 % (20.5-51.1); MEAN CORPUSCULAR HEMOGLOBIN 28 pg (27-31); MEAN CORPUSCULAR HGB CONC 33 g/dL (33-37); MEAN CORPUSCULAR VOLUME 85.2 fL (80-94); MONOCYTES # (AUTO) 0.5 K/uL (0.8-1.0); MONOCYTES % (AUTO) 2.7 % (1.7-9.3); NEUTROPHILS # (AUTO) 16.2 K/uL (1.8-7.7); NEUTROPHILS % (AUTO) 91.5 % (42.2-75.2); PLATELET COUNT (AUTO) 385 K/uL (140-450); RED BLOOD CELL COUNT(AUTO) 5.19 MIL/uL (4.20-6.10); RED CELL DISTRIBUTION WIDTH 15.7 % (11.6-13.7); WHITE BLOOD COUNT (AUTO) 17.7 K/uL (4.8-10.8)
[2023-06-28 07:45] LABS: ANION GAP 16.6 (8-16); CALCIUM 9.3 mg/dL (8.5-10.1); CARBON DIOXIDE 23.5 mmol/L (21-32); CREATININE 0.7 mg/dL (0.6-1.3); POTASSIUM 3.1 mmol/L (3.5-5.1)
[2023-06-28 07:54] LABS: ALANINE AMINOTRANSFERASE 45 U/L (12-78); ALKALINE PHOSPHATASE 177 U/L (50-136); ASPARTATE AMINOTRANSFERASE 22 U/L (15-37); BILIRUBIN,DIRECT 0.1 mg/dL (0.0-0.3); TOTAL BILIRUBIN 0.3 mg/dL (0.0-1.0)
[2023-06-28 08:01] LABS: INR 0.97 (0.8-1.2); PARTIAL THROMBOPLASTIN TIME 23.6 secs (22-35.6); PROTHROMBIN TIME 10.2 secs (10.8-13.4)
[2023-06-28 08:04] LABS: LACTIC ACID 5.4 mmol/L (0.4-2.0)
[2023-06-28] MEDS: NACL 0.9% 2,000 ML IV ONE (08:05)
[2023-06-28] MEDS: VANCOMYCIN 1,000 MG in DEXTROSE 5% 250 ML IV ONE (08:10)
[2023-06-28] MEDS: CEFEPIME 2,000 MG in DEXTROSE 5% 100 ML IV ONE (08:10)
[2023-06-28] MEDS ORDERED: ACETAMINOPHEN 325 MG TAB PO PRN (09:10)
[2023-06-28 09:26] LABS: APPEARANCE,URINE CLEAR (CLEAR); BILIRUBIN,URINE NEGATIVE (NEGATIVE); BLOOD, URINE NEGATIVE (NEGATIVE); COLOR,URINE YELLOW (YELLOW); LEUKOCYTE ESTERASE ,URINE NEGATIVE (NEGATIVE); NITRITE, URINE NEGATIVE (NEGATIVE); PH,URINE 7.5 (5.0-9.0); PROTEIN,URINE NEGATIVE (NEGATIVE); UGLUCOSE NEGATIVE (NEGATIVE); UROBILINOGEN,URINE 0.2 EU/dL (0.2 - 1)
[2023-06-28] MEDS: HYDROmorphone PFS 2 MG/ML SYR IVP ONE (09:26)
[2023-06-28] MEDS ORDERED: CEFEPIME 2,000 MG VIAL IV ONE (09:28)
[2023-06-28] MEDS ORDERED: VANCOMYCIN 1,000 MG VIAL ONE (10:48)
[2023-06-28] MEDS ORDERED: POTASSIUM CHLORIDE 20% 40 MEQ/15 ML UDC ONE (10:49)
[2023-06-28] MEDS: POTASSIUM CHLORIDE 20% 40 MEQ/15 ML UDC PO ONE (10:50)
[2023-06-28 11:33] LABS: FLU A ANTIGEN negative (NEGATIVE); FLU B ANTIGEN negative (NEGATIVE)
[2023-06-28 11:40] VITALS: O2SAT 100
[2023-06-28 12:00] VITALS: BP 152/103; PULSE 100; PULSE 107; RESP 22; TEMP 96.7; O2SAT 100
[2023-06-28] MEDS: LORazepam 2 MG/ML VIAL IVP PRN (12:09)
[2023-06-28] MEDS: PIPERACILLIN/TAZOBACTAM 3.375 GM in DEXTROSE 5% 50 ML IV SCH (13:34)
[2023-06-28 16:00] VITALS: BP 125/77; PULSE 107; RESP 16; TEMP 98.7; O2SAT 100
[2023-06-28] MEDS: MORPHINE SULFATE 2 MG/ML SYR IVP PRN (16:30)
[2023-06-28] MEDS ORDERED: metFORMIN 500 MG TAB PO SCH (17:00)
[2023-06-28 20:00] VITALS: PULSE 101; RESP 18; O2SAT 97
[2023-06-28] MEDS: MEDS-TO-BEDS MC SCH (21:16)
[2023-06-29] MEDS: ONDANSETRON 4 MG/2 ML VIAL IVP PRN (01:14)
[2023-06-29 04:00] VITALS: BP 126/70; PULSE 86; RESP 18; TEMP 97.8; O2SAT 96
[2023-06-29 06:32] LABS: BASOPHILS % (AUTO) 0.1 % (0.0-2.0); EOSINOPHILS % (AUTO) 0.5 % (0.0-4.0); HEMOGLOBIN 13.2 g/dL (12.0-18.0); LYMPHOCYTES # (AUTO) 1.4 K/uL (2.0-11.5); LYMPHOCYTES % (AUTO) 19.9 % (20.5-51.1); MEAN CORPUSCULAR HEMOGLOBIN 29 pg (27-31); MEAN CORPUSCULAR HGB CONC 34 g/dL (33-37); MEAN CORPUSCULAR VOLUME 85.7 fL (80-94); MONOCYTES # (AUTO) 0.4 K/uL (0.8-1.0); NEUTROPHILS # (AUTO) 5.2 K/uL (1.8-7.7); NEUTROPHILS % (AUTO) 73.5 % (42.2-75.2); PLATELET COUNT (AUTO) 323 K/uL (140-450); RED BLOOD CELL COUNT(AUTO) 4.55 MIL/uL (4.20-6.10); RED CELL DISTRIBUTION WIDTH 15.3 % (11.6-13.7)
[2023-06-29 07:07] LABS: ALBUMIN 3.2 g/dL (3.4-5.0); ANION GAP 14.1 (8-16); CALCIUM 8.6 mg/dL (8.5-10.1); CARBON DIOXIDE 24.5 mmol/L (21-32); CREATININE 0.5 mg/dL (0.6-1.3); MAGNESIUM 1.7 mg/dL (1.8-2.4); POTASSIUM 3.6 mmol/L (3.5-5.1); TOTAL BILIRUBIN 0.5 mg/dL (0.0-1.0); TOTAL PROTEIN, SERUM 7.4 g/dL (6.4-8.2)
[2023-06-29 08:00] VITALS: BP 133/82; PULSE 101; PULSE 98; RESP 18; TEMP 98; O2SAT 97; O2SAT 99
[2023-06-29] MEDS: ENOXAPARIN 40 MG/0.4 ML SYR SUBQ SCH (09:16)
[2023-06-29] MEDS: MAG SULF 2000 MG/WATER PREMIX 50 ML IV SCH (10:14)
[2023-06-29 12:00] VITALS: BP 116/69; PULSE 64; RESP 18; TEMP 98.2; O2SAT 98
[2023-06-29] MEDS ORDERED: CIPR500T4 PO (13:40)
[2023-06-29] MEDS ORDERED: METR-520 PO (13:40)
[2023-06-29 20:00] VITALS: BP 113/66; PULSE 57; RESP 18; TEMP 97.4; O2SAT 97
[2023-06-29 23:15] VITALS: BP 118/74; PULSE 57; RESP 18; TEMP 97.8; O2SAT 97
[2023-06-30 04:00] VITALS: BP 137/74; PULSE 72; RESP 18; TEMP 97.5; O2SAT 99
[2023-06-30 08:00] VITALS: PULSE 61; RESP 18; O2SAT 99
[2023-06-30 09:03] LABS: BASOPHILS % (AUTO) 0.4 % (0.0-2.0); EOSINOPHILS % (AUTO) 0.2 % (0.0-4.0); HEMATOCRIT 42.7 % (36-52); HEMOGLOBIN 14.3 g/dL (12.0-18.0); LYMPHOCYTES # (AUTO) 1.5 K/uL (2.0-11.5); MEAN CORPUSCULAR HEMOGLOBIN 29 pg (27-31); MEAN CORPUSCULAR HGB CONC 34 g/dL (33-37); MEAN CORPUSCULAR VOLUME 85.4 fL (80-94); MONOCYTES # (AUTO) 0.4 K/uL (0.8-1.0); MONOCYTES % (AUTO) 5.3 % (1.7-9.3); NEUTROPHILS % (AUTO) 72.1 % (42.2-75.2); PLATELET COUNT (AUTO) 366 K/uL (140-450); RED CELL DISTRIBUTION WIDTH 15.4 % (11.6-13.7); WHITE BLOOD COUNT (AUTO) 6.9 K/uL (4.8-10.8)
[2023-06-30 09:30] LABS: ALBUMIN 3.7 g/dL (3.4-5.0); ANION GAP 14.7 (8-16); CALCIUM 9.1 mg/dL (8.5-10.1); CARBON DIOXIDE 24.9 mmol/L (21-32); CREATININE 0.6 mg/dL (0.6-1.3); POTASSIUM 3.6 mmol/L (3.5-5.1); TOTAL BILIRUBIN 0.6 mg/dL (0.0-1.0); TOTAL PROTEIN, SERUM 8.4 g/dL (6.4-8.2)
[2023-06-30 12:00] VITALS: BP 127/80; PULSE 61; RESP 18; TEMP 97.6; O2SAT 99
[2023-06-30 20:00] VITALS: BP 114/63; PULSE 68; RESP 18; TEMP 97.9; O2SAT 99
[2023-06-30] MEDS: HYDROmorphone 1 MG/ML AMP IVP PRN (20:24)
[2023-07-01 04:00] VITALS: BP 117/84; PULSE 95; RESP 18; TEMP 97.4; O2SAT 97
[2023-07-01 06:57] LABS: BASOPHILS % (AUTO) 0.2 % (0.0-2.0); EOSINOPHILS # (AUTO) 0.1 K/uL (0-0.4); EOSINOPHILS % (AUTO) 0.6 % (0.0-4.0); HEMATOCRIT 39.8 % (36-52); HEMOGLOBIN 13.6 g/dL (12.0-18.0); LYMPHOCYTES # (AUTO) 1.5 K/uL (2.0-11.5); LYMPHOCYTES % (AUTO) 18.2 % (20.5-51.1); MEAN CORPUSCULAR HEMOGLOBIN 29 pg (27-31); MEAN CORPUSCULAR HGB CONC 34 g/dL (33-37); MEAN CORPUSCULAR VOLUME 85.2 fL (80-94); MONOCYTES # (AUTO) 0.6 K/uL (0.8-1.0); MONOCYTES % (AUTO) 7.2 % (1.7-9.3); NEUTROPHILS # (AUTO) 6.2 K/uL (1.8-7.7); NEUTROPHILS % (AUTO) 73.8 % (42.2-75.2); PLATELET COUNT (AUTO) 333 K/uL (140-450); RED BLOOD CELL COUNT(AUTO) 4.67 MIL/uL (4.20-6.10); RED CELL DISTRIBUTION WIDTH 15.1 % (11.6-13.7); WHITE BLOOD COUNT (AUTO) 8.4 K/uL (4.8-10.8)
[2023-07-01 07:14] LABS: ALBUMIN 3.4 g/dL (3.4-5.0); ANION GAP 14.4 (8-16); CALCIUM 8.6 mg/dL (8.5-10.1); CARBON DIOXIDE 23.9 mmol/L (21-32); CREATININE 0.5 mg/dL (0.6-1.3); POTASSIUM 3.3 mmol/L (3.5-5.1); TOTAL BILIRUBIN 0.5 mg/dL (0.0-1.0); TOTAL PROTEIN, SERUM 7.9 g/dL (6.4-8.2)
[2023-07-01 08:00] VITALS: BP 131/80; PULSE 89; RESP 16; TEMP 98.5; O2SAT 98
[2023-07-01] MEDS: POTASSIUM CHLORIDE 10 MEQ TABER PO PRN (08:58)
[2023-07-01 10:06] VITALS: PULSE 89; RESP 16; O2SAT 98
[2023-07-01] MEDS ORDERED: VANCOMYCIN PER PHARMACY MC PRN (17:45)
[2023-07-01 20:00] VITALS: BP 115/60; PULSE 76; RESP 18; TEMP 97.1; O2SAT 97
[2023-07-01] MEDS: VANCOMYCIN 1,500 MG in DEXTROSE 5% 500 ML IV SCH (21:00)
[2023-07-02 06:40] LABS: BASOPHILS % (AUTO) 0.3 % (0.0-2.0); EOSINOPHILS # (AUTO) 0.1 K/uL (0-0.4); EOSINOPHILS % (AUTO) 0.7 % (0.0-4.0); HEMATOCRIT 43.6 % (36-52); HEMOGLOBIN 14.7 g/dL (12.0-18.0); LYMPHOCYTES # (AUTO) 1.9 K/uL (2.0-11.5); LYMPHOCYTES % (AUTO) 18.8 % (20.5-51.1); MEAN CORPUSCULAR HEMOGLOBIN 29 pg (27-31); MEAN CORPUSCULAR HGB CONC 34 g/dL (33-37); MONOCYTES # (AUTO) 0.7 K/uL (0.8-1.0); MONOCYTES % (AUTO) 7.1 % (1.7-9.3); NEUTROPHILS # (AUTO) 7.4 K/uL (1.8-7.7); NEUTROPHILS % (AUTO) 73.1 % (42.2-75.2); PLATELET COUNT (AUTO) 367 K/uL (140-450); RED BLOOD CELL COUNT(AUTO) 5.07 MIL/uL (4.20-6.10); RED CELL DISTRIBUTION WIDTH 15.1 % (11.6-13.7); WHITE BLOOD COUNT (AUTO) 10.1 K/uL (4.8-10.8)
[2023-07-02 06:48] LABS: ANION GAP 15.3 (8-16); CARBON DIOXIDE 24.5 mmol/L (21-32); CREATININE 0.5 mg/dL (0.6-1.3); POTASSIUM 3.8 mmol/L (3.5-5.1)
[2023-07-02 08:00] VITALS: PULSE 80; RESP 18; O2SAT 97
[2023-07-02] MEDS: NAFCILLIN 2,000 MG in DEXTROSE 5% 100 ML IV SCH (08:49)
[2023-07-02] MEDS: HYDROcodone/APAP 5/325 MG 1 TAB TAB PO PRN (11:43)
[2023-07-02 20:00] VITALS: RESP 18; O2SAT 98
[2023-07-03 06:47] LABS: BASOPHILS % (AUTO) 0.2 % (0.0-2.0); EOSINOPHILS # (AUTO) 0.1 K/uL (0-0.4); EOSINOPHILS % (AUTO) 0.6 % (0.0-4.0); HEMATOCRIT 42.3 % (36-52); HEMOGLOBIN 14.3 g/dL (12.0-18.0); LYMPHOCYTES # (AUTO) 1.6 K/uL (2.0-11.5); LYMPHOCYTES % (AUTO) 17.8 % (20.5-51.1); MEAN CORPUSCULAR HEMOGLOBIN 29 pg (27-31); MEAN CORPUSCULAR HGB CONC 34 g/dL (33-37); MEAN CORPUSCULAR VOLUME 85.7 fL (80-94); MONOCYTES # (AUTO) 0.7 K/uL (0.8-1.0); MONOCYTES % (AUTO) 7.2 % (1.7-9.3); NEUTROPHILS # (AUTO) 6.9 K/uL (1.8-7.7); NEUTROPHILS % (AUTO) 74.2 % (42.2-75.2); PLATELET COUNT (AUTO) 336 K/uL (140-450); RED BLOOD CELL COUNT(AUTO) 4.94 MIL/uL (4.20-6.10); RED CELL DISTRIBUTION WIDTH 15.2 % (11.6-13.7); WHITE BLOOD COUNT (AUTO) 9.2 K/uL (4.8-10.8)
[2023-07-03 07:10] LABS: ANION GAP 16.3 (8-16); CALCIUM 9.4 mg/dL (8.5-10.1); CARBON DIOXIDE 23.4 mmol/L (21-32); CREATININE 0.6 mg/dL (0.6-1.3); POTASSIUM 3.7 mmol/L (3.5-5.1)
[2023-07-03 08:00] VITALS: BP 121/82; PULSE 82; RESP 18; TEMP 98.3; O2SAT 98
[2023-07-03 12:00] VITALS: BP 124/80; PULSE 81; RESP 18; TEMP 98.4; O2SAT 97
[2023-07-03 20:00] VITALS: BP 121/73; PULSE 88; RESP 21; TEMP 97.7; O2SAT 97
[2023-07-04 04:00] VITALS: BP 114/67; PULSE 76; RESP 20; TEMP 97.5; O2SAT 97
[2023-07-04 06:31] LABS: BASOPHILS % (AUTO) 0.3 % (0.0-2.0); EOSINOPHILS # (AUTO) 0.1 K/uL (0-0.4); EOSINOPHILS % (AUTO) 1.2 % (0.0-4.0); HEMOGLOBIN 14.5 g/dL (12.0-18.0); LYMPHOCYTES # (AUTO) 2.6 K/uL (2.0-11.5); LYMPHOCYTES % (AUTO) 22.4 % (20.5-51.1); MEAN CORPUSCULAR HEMOGLOBIN 29 pg (27-31); MEAN CORPUSCULAR HGB CONC 34 g/dL (33-37); MEAN CORPUSCULAR VOLUME 85.7 fL (80-94); MONOCYTES % (AUTO) 8.9 % (1.7-9.3); NEUTROPHILS # (AUTO) 7.9 K/uL (1.8-7.7); NEUTROPHILS % (AUTO) 67.2 % (42.2-75.2); PLATELET COUNT (AUTO) 319 K/uL (140-450); RED BLOOD CELL COUNT(AUTO) 5.02 MIL/uL (4.20-6.10); RED CELL DISTRIBUTION WIDTH 15.1 % (11.6-13.7); WHITE BLOOD COUNT (AUTO) 11.8 K/uL (4.8-10.8)
[2023-07-04 06:46] LABS: ANION GAP 14.9 (8-16); CALCIUM 8.4 mg/dL (8.5-10.1); CREATININE 0.7 mg/dL (0.6-1.3); POTASSIUM 3.9 mmol/L (3.5-5.1)
[2023-07-04 08:00] VITALS: PULSE 76; RESP 20; O2SAT 97
[2023-07-04 12:00] VITALS: BP 139/89; PULSE 85; RESP 20; TEMP 97.8; O2SAT 97
[2023-07-04 13:29] VITALS: BP 139/89; PULSE 85; RESP 20; TEMP 97.8
[2023-07-04] MEDS ORDERED: LOV40I SUBQ (15:55)
[2023-07-04] MEDS ORDERED: NAFC1SOL1 IV (15:55)
== END 2023-07-04 17:10 | DRG 720 ==
LOC: MED 05:17 → MMU 09:13 → MTU 11:24
PROVIDERS: ADMIT Hospitalist; ATTEND Hospitalist
DX: A41.9 Sepsis, unspecified organism (principal); G82.20 Paraplegia, unspecified; K52.9 Noninfective gastroenteritis and colitis, unspecified; N20.0 Calculus of kidney; N31.9 Neuromuscular dysfunction of bladder, unspecified; F41.9 Anxiety disorder, unspecified; I10 Essential (primary) hypertension; Z20.822 Contact with and (suspected) exposure to COVID-19; B95.61 Methicillin susceptible Staphylococcus aureus infection as the cause of diseases classified elsewhere; Z93.3 Colostomy status; Z90.49 Acquired absence of other specified parts of digestive tract; Z86.718 Personal history of other venous thrombosis and embolism; Z79.891 Long term (current) use of opiate analgesic; Z79.899 Other long term (current) drug therapy; S81.802A Unspecified open wound, left lower leg, initial encounter
CPT/HCPCS: 36415; 71045; 80048; 80053; 80076; 81003; 82948; 83605; 83735; 83880; 84484; 85025; 85610; 85730; 87040; 87081; 87086; 87186; 93005; 96374; 96375; 99291; J0692; J1170; J1650; J2060; J2270; J2405; J2543; J3370; J3475; J3490; J7060; Q0092; Q0162; Q9967

== ENCOUNTER 2023-10-12 18:35 | Emergency (ER) | payer OTHER ==
[~2023-10-12] VITALS: Ht 175.3 cm; Wt 81.6 kg
[~2023-10-12 18:35] MED LIST changes: -ACET-8905 PO; -CEPH500C16 PO; -CLIN150C1 PO; +LOV40I SUBQ; +NAFC1SOL1 IV; -[UNRECOGNIZED DRUG - CODE] PO
[2023-10-12 18:51] VITALS: BP 140/105; PULSE 115; RESP 18; TEMP 97.3; O2SAT 98
[2023-10-12] MEDS: PANTOPRAZOLE 40 MG TABEC PO ONE (19:21)
[2023-10-12 19:27] LABS: BASOPHILS % (AUTO) 0.1 % (0.0-2.0); HEMATOCRIT 47.2 % (36-52); HEMOGLOBIN 15.4 g/dL (12.0-18.0); LYMPHOCYTES # (AUTO) 1.2 K/uL (2.0-11.5); LYMPHOCYTES % (AUTO) 8.3 % (20.5-51.1); MEAN CORPUSCULAR HEMOGLOBIN 26 pg (27-31); MEAN CORPUSCULAR HGB CONC 33 g/dL (33-37); MEAN CORPUSCULAR VOLUME 80.3 fL (80-94); MONOCYTES # (AUTO) 1.1 K/uL (0.8-1.0); MONOCYTES % (AUTO) 7.9 % (1.7-9.3); NEUTROPHILS # (AUTO) 11.8 K/uL (1.8-7.7); NEUTROPHILS % (AUTO) 83.7 % (42.2-75.2); PLATELET COUNT (AUTO) 346 K/uL (140-450); RED BLOOD CELL COUNT(AUTO) 5.87 MIL/uL (4.20-6.10); RED CELL DISTRIBUTION WIDTH 16.9 % (11.6-13.7); WHITE BLOOD COUNT (AUTO) 14.1 K/uL (4.8-10.8)
[2023-10-12 19:43] LABS: ALBUMIN 4.1 g/dL (3.4-5.0); BILIRUBIN,DIRECT 0.1 mg/dL (0.0-0.3); TOTAL BILIRUBIN 0.6 mg/dL (0.0-1.0); TOTAL PROTEIN, SERUM 8.3 g/dL (6.4-8.2)
[2023-10-12 19:49] LABS: ANION GAP 16.8 (8-16); CALCIUM 9.8 mg/dL (8.5-10.1); CARBON DIOXIDE 26.1 mmol/L (21-32); CREATININE 0.7 mg/dL (0.6-1.3); POTASSIUM 3.9 mmol/L (3.5-5.1)
[2023-10-12] MEDS ORDERED: BEN10 PO (20:27)
[2023-10-12] MEDS ORDERED: PANT40EC PO (20:27)
[2023-10-12] MEDS ORDERED: DICYCLOMINE HCL LIQUID 10 MG/5 ML UDC ONE (20:40)
[2023-10-12] MEDS ORDERED: ALUMINUM HYD/MAG/SIMETHICONE 30 ML UDC ONE (20:40)
[2023-10-12] MEDS: DICYCLOMINE HCL LIQUID 20 MG, ALUMINUM HYD/MAG/SIMETHICONE 30 ML, LIDOCAINE VISCOUS 2% ... PO ONE (20:43)
== END 2023-10-12 21:15 | disposition home or self-care (01) ==
LOC: MED 18:35
DX: K21.9 Gastro-esophageal reflux disease without esophagitis (principal); Z87.448 Personal history of other diseases of urinary system; Z98.890 Other specified postprocedural states; Z79.899 Other long term (current) drug therapy
CPT/HCPCS: 36415; 74018; 80048; 80076; 83690; 85025; 99284